=== PATIENT | female | born 1935 | race Caucasian/White ===

== ENCOUNTER 2019-06-25 03:44 | Emergency (ER) | payer MEDICARE, SELFPAY ==
[2019-06-25 03:45] VITALS: BP 192/93; PULSE 91; RESP 16; TEMP 37.3; O2SAT 94; BMI 23.2
--- NOTE | 2019-06-25 03:45 | ED_ITS ---
Entered by Violetta Schmid, acting as scribe for Laurie Lewis MD Documented by User: Laurie Lewis MD 06/25/19 04:11 HPI - Extremity Problem General: Chief complaint: Back Pain/Injury Stated complaint: PAIN BETWEEN SHOULDERS Time Seen by Provider: 06/25/19 03:46 Source: EMS Mode of arrival: EMS Limitations: no limitations History of Present Illness: HPI Narrative: 84 yo f came to the er by ems for pain between her shoulder blades and left knee pain. Onset was last night. Pt states that she was sleeping and woke up with a sharp pain between her shoulder blades. Pt also states that her left knee has been hurting but no injury that she knows of at this time. Complaint: extremity pain (between the shoulder blades) and other (left knee pain) Onset (ago): day(s) (today) Pain Consistency: constant Location: upper extremity, lower extremity and knee Associated symptoms: Deny chest pain, fever(s) or rash Review of Systems Const: Denies: fever or chills Eyes: Denies: change in vision ENMT: Denies: throat pain or mouth pain Card: Denies: chest pain Resp: Denies: shortness of breath GI: Denies: abdominal pain, vomiting or diarrhea : Denies: difficulty urinating Musc: Reports: back pain; Denies: joint pain Skin/Breast: Denies: rash Neuro: Denies: headache Psych: Denies: depression Endo: Denies: excessive urination Osorio/Lymph: Denies: easy bruising All/Imm: Denies: hives PFSH ED PFSH: Statuses (acute, chronic, etc) shown below reflect problem list status as previously entered and may not be historically accurate Social History Smoking and tobacco status: never smoked Physical Exam Const: COMMON NORMALS: no apparent distress and healthy appearing HENMT: COMMON NORMALS: normocephalic and external nose normal HEAD & SCALP: normocephalic NOSE: external nose normal and no nasal discharge (nasal dischage) Eye: COMMON NORMALS: PERRL PUPIL: Yes PERRL Neck/C-Spine: COMMON NORMALS: full ROM and no lymphadenopathy Chest: COMMONS NORMALS: inspection of chest normal Resp: COMMON NORMALS: normal respiratory effort and clear to auscultation bilaterally AUSCULTATION: clear to auscultation bilaterally Cardio: COMMON NORMALS: regular rate and regular rhythm RATE: regular rate RHYTHM: regular rhythm GI: COMMON NORMALS: soft to palpation PALPATION: Yes soft Back/Pelvis: OTHER: Tenderness over shoulder blades and pain is worse when she raises her arms. Extremity: COMMON NORMALS: normal to inspection, full ROM and normal capillary refill Psych: COMMON NORMALS: mental status grossly normal and cooperative Skin: COMMON NORMALS: no rashes or lesions noted GENERAL SKIN EXAM: no rashes or lesions noted Course Vital Signs: Vital signs: Vital Signs Temperature 99.1 F 06/25/19 03:45 Pulse Rate 91 06/25/19 03:45 Respiratory Rate 16 06/25/19 03:45 Blood Pressure 192/93 06/25/19 03:45 Pulse Oximetry 94 06/25/19 03:45 MDM - Extremity (Nontraumatic) Lab Data: Labs: Lab Results 06/25/19 06/25/19 06/25/19 Range/Units 03:53 03:53 03:53 WBC 9.2 (4.0-10.0) 10^3/ uL RBC 3.81 L (4.1-5.3) 10^6/u L Hgb 11.4 L (11.5-15.3) g/dL Hct 35.7 L (37.0-47.0) % MCV 93.7 (81-99) fL MCH 29.9 (28.0-34.0) pg MCHC 31.9 (30.0-36.0) g/dL RDW 12.4 (12.1-15.1) % Plt Count 166 (130-400) 10^3/c mm MPV 11.3 H (7.4-10.4) fL Neut % (Auto) 60.5 % Lymph % (Auto) 25.1 % [place] % (Auto) 10.9 % Eos % (Auto) 2.8 % Baso % (Auto) 0.4 % Neut # (Auto) 5.6 (1.8-7.7) 10^3/u L Lymph # (Auto) 2.3 (0.8-4.8) 10^3/u L [place] # (Auto) 1.0 H (0.2-0.9) 10^3/u L Eos # (Auto) 0.3 (0.0-0.8) 10^3/u L Baso # (Auto) 0.0 (0.0-0.1) 10^3/u L Nucleated RBC % (a uto) 0 % Nucleated RBCs # 0.0 /100WBC Sodium 140 (136-145) mmol/L Potassium 3.7 (3.5-5.1) mmol/L Chloride 102 (98-107) mmol/L Carbon Dioxide 25 (22-29) mmol/L Anion Gap 16.7 (5-19) BUN 21 (8-23) mg/dL Creatinine 1.2 H (0.5-0.9) mg/dL Glucose 111 H (74-106) mg/dL POC Glucose (70-110) mg/dL Calcium 9.8 (8.8-10.2) mg/Dl Total Bilirubin 0.4 (0.15-1.2) mg/dL AST 18 (0-32) U/L ALT 6 (0-33) U/L Alkaline Phosphata se 96 (35-105) IU/L Troponin T Baselin e 20 H (0-10) ng/mL Troponin T 120 Min [place] (0-10) ng/mL Delta Troponin T (0-10) ABS# Total Protein 6.5 L (6.6-8.7) g/dL Albumin 3.8 (3.5-5.2) g/dL Globulin 2.7 (1.3-4.6) g/dL 06/25/19 06/25/19 Range/Units 03:59 06:05 WBC (4.0-10.0) 10^3/ uL RBC (4.1-5.3) 10^6/u L Hgb (11.5-15.3) g/dL Hct (37.0-47.0) % MCV (81-99) fL MCH (28.0-34.0) pg MCHC (30.0-36.0) g/dL RDW (12.1-15.1) % Plt Count (130-400) 10^3/c mm MPV (7.4-10.4) fL Neut % (Auto) % Lymph % (Auto) % [place] % (Auto) % Eos % (Auto) % Baso % (Auto) % Neut # (Auto) (1.8-7.7) 10^3/u L Lymph # (Auto) (0.8-4.8) 10^3/u L [place] # (Auto) (0.2-0.9) 10^3/u L Eos # (Auto) (0.0-0.8) 10^3/u L Baso # (Auto) (0.0-0.1) 10^3/u L Nucleated RBC % (a uto) % Nucleated RBCs # /100WBC Sodium (136-145) mmol/L Potassium (3.5-5.1) mmol/L Chloride (98-107) mmol/L Carbon Dioxide (22-29) mmol/L Anion Gap (5-19) BUN (8-23) mg/dL Creatinine (0.5-0.9) mg/dL Glucose (74-106) mg/dL POC Glucose 104 (70-110) mg/dL Calcium (8.8-10.2) mg/Dl Total Bilirubin (0.15-1.2) mg/dL AST (0-32) U/L ALT (0-33) U/L Alkaline Phosphata se (35-105) IU/L Troponin T Baselin e (0-10) ng/mL Troponin T 120 Min [place] 15.94 H (0-10) ng/mL Delta Troponin T -4.06 L (0-10) ABS# Total Protein (6.6-8.7) g/dL Albumin (3.5-5.2) g/dL Globulin (1.3-4.6) g/dL Imaging Data^: CXR: Attestation: I personally reviewed and interpreted this imaging study as follows: My impression: no acute abnormality EKG Data^: EKG 1: Attestation: I personally reviewed and interpreted this EKG as follows: EKG interpretation date: 06/25/19 EKG interpretation time: 04:05 Interpretation: nsr hr [address] or t wave abnormalties qrs 87 qtc 399 Discharge Plan Discharge Patient Disposition: Home, Self-Care Clinical Impression: Thoracic back pain Qualifiers: Chronicity: acute Back pain laterality: bilateral Qualified Code(s): M54.6 - Pain in thoracic spine Condition: Stable Prescriptions: No Action donepezil 5 mg Tablet 5 mg PO DAILY RF: 0 lisinopril 20 mg Tablet 20 mg PO DAILY RF: 0 levothyroxine 88 mcg Tablet 88 mcg PO DAILY RF: 0 aspirin 325 mg Tablet,Delayed Release (Dr/Ec) 325 mg PO DAILY RF: 0 Discharge Orders: Discharge Order (Routine); Ordered 06/25/19 Ordered By: Adi Sarah Referrals: Jesús Garcia MD [Family Provider] - Discharge Diet: Advance as tolerated Discharge Activity: Resume usual activity Patient Instructions: Back Pain (ED) Coding Level of Care Code ED Urologist Md for Chg Fwd Exam Problem Focused Documented by User: Adi Sarah DO 06/25/19 07:01 HPI - Extremity Problem General: Chief complaint: Back Pain/Injury Stated complaint: PAIN BETWEEN SHOULDERS Time Seen by Provider: 06/25/19 03:46 PFSH ED PFSH: Statuses (acute, chronic, etc) shown below reflect problem list status a s previously entered and may not be historically accurate Social History Smoking and tobacco status: never smoked Course ED course: Assumed care at change of shift from Dr. Lewis. Chart reviewed waiting on second troponin. Second troponin has a negative delta. Patient was given her usual home medications. Is also given hydrocodone for back pain discharged to [facility]. Vital Signs: Vital signs: Vital Signs Temperature 99.1 F 06/25/19 03:45 Pulse Rate 91 06/25/19 03:45 Respiratory Rate 16 06/25/19 03:45 Blood Pressure 192/93 06/25/19 03:45 Pulse Oximetry 94 06/25/19 03:45 MDM - Extremity (Nontraumatic) Lab Data: Labs: Lab Results 06/25/19 06/25/19 06/25/19 Range/Units 03:53 03:53 03:53 WBC 9.2 (4.0-10.0) 10^3/ uL RBC 3.81 L (4.1-5.3) 10^6/u L Hgb 11.4 L (11.5-15.3) g/dL Hct 35.7 L (37.0-47.0) % MCV 93.7 (81-99) fL MCH 29.9 (28.0-34.0) pg MCHC 31.9 (30.0-36.0) g/dL RDW 12.4 (12.1-15.1) % Plt Count 166 (130-400) 10^3/c mm MPV 11.3 H (7.4-10.4) fL Neut % (Auto) 60.5 % Lymph % (Auto) 25.1 % [place] % (Auto) 10.9 % Eos % (Auto) 2.8 % Baso % (Auto) 0.4 % Neut # (Auto) 5.6 (1.8-7.7) 10^3/u L Lymph # (Auto) 2.3 (0.8-4.8) 10^3/u L [place] # (Auto) 1.0 H (0.2-0.9) 10^3/u L Eos # (Auto) 0.3 (0.0-0.8) 10^3/u L Baso # (Auto) 0.0 (0.0-0.1) 10^3/u L Nucleated RBC % (a uto) 0 % Nucleated RBCs # 0.0 /100WBC Sodium 140 (136-145) mmol/L Potassium 3.7 (3.5-5.1) mmol/L Chloride 102 (98-107) mmol/L Carbon Dioxide 25 (22-29) mmol/L Anion Gap 16.7 (5-19) BUN 21 (8-23) mg/dL Creatinine 1.2 H (0.5-0.9) mg/dL Glucose 111 H (74-106) mg/dL POC Glucose (70-110) mg/dL Calcium 9.8 (8.8-10.2) mg/Dl Total Bilirubin 0.4 (0.15-1.2) mg/dL AST 18 (0-32) U/L ALT 6 (0-33) U/L Alkaline Phosphata se 96 (35-105) IU/L Troponin T Baselin e 20 H (0-10) ng/mL Troponin T 120 [address] [place] (0-10) ng/mL Delta Troponin T (0-10) ABS# Total Protein 6.5 L (6.6-8.7) g/dL Albumin 3.8 (3.5-5.2) g/dL Globulin 2.7 (1.3-4.6) g/dL 06/25/19 06/25/19 Range/Units 03:59 06:05 WBC (4.0-10.0) 10^3/ uL RBC (4.1-5.3) 10^6/u L Hgb (11.5-15.3) g/dL Hct (37.0-47.0) % MCV (81-99) fL MCH (28.0-34.0) pg MCHC (30.0-36.0) g/dL RDW (12.1-15.1) % Plt Count (130-400) 10^3/c mm MPV (7.4-10.4) fL Neut % (Auto) % Lymph % (Auto) % [place] % (Auto) % Eos % (Auto) % Baso % (Auto) % Neut # (Auto) (1.8-7.7) 10^3/u L Lymph # (Auto) (0.8-4.8) 10^3/u L [place] # (Auto) (0.2-0.9) 10^3/u L Eos # (Auto) (0.0-0.8) 10^3/u L Baso # (Auto) (0.0-0.1) 10^3/u L Nucleated RBC % (a uto) % Nucleated RBCs # /100WBC Sodium (136-145) mmol/L Potassium (3.5-5.1) mmol/L Chloride (98-107) mmol/L Carbon Dioxide (22-29) mmol/L Anion Gap (5-19) BUN (8-23) mg/dL Creatinine (0.5-0.9) mg/dL Glucose (74-106) mg/dL POC Glucose 104 (70-110) mg/dL Calcium (8.8-10.2) mg/Dl Total Bilirubin (0.15-1.2) mg/dL AST (0-32) U/L ALT (0-33) U/L Alkaline Phosphata se (35-105) IU/L Troponin T Baselin e (0-10) ng/mL Troponin T [address] [place] 15.94 H (0-10) ng/mL Delta Troponin T -4.06 L (0-10) ABS# Total Protein (6.6-8.7) g/dL Albumin (3.5-5.2) g/dL Globulin (1.3-4.6) g/dL Imaging Data^: CXR: Radiologist's impression: No cardiomegaly small left costophrenic angle pleural effusion no evidence of congestive heart failure/pulmonary edema EKG Data^: EKG 2: EKG interpretation date: 06/25/19 EKG interpretation time: 05:54 Prior EKG tracings: available for review Interpretation: Normal sinus rhythm, rate 85 normal IN interval normal QT interval no acute ST changes noted nonpathologic Q waves in lead III Discharge Plan Discharge Patient Disposition: Home, Self-Care Clinical Impression: Thoracic back pain Qualifiers: Chronicity: acute Back pain laterality: bilateral Qualified Code(s): M54.6 - Pain in thoracic spine Condition: Stable Prescriptions: No Action donepezil 5 mg Tablet 5 mg PO DAILY RF: 0 lisinopril 20 mg Tablet 20 mg PO DAILY RF: 0 levothyroxine 88 mcg Tablet 88 mcg PO DAILY RF: 0 aspirin 325 mg Tablet,Delayed Release (Dr/Ec) 325 mg PO DAILY RF: 0 Discharge Orders: Discharge Order (Routine); Ordered 06/25/19 Ordered By: Adi Sarah Referrals: Jesús Garcia MD [Family Provider] - Discharge Diet: Advance as tolerated Discharge Activity: Resume usual activity Patient Instructions: Back Pain (ED) Coding Level of Care Code ED Urologist Md for Chg Fwd Exam Problem Focused The documentation recorded by the Binu lennon Stephanie Lyn, accurately reflects the service I personally performed and the decisions made by Joshua perales Korby, MD Jun 25, 2019 03:44
--- NOTE | 2019-06-25 03:47 | XR_ITS ---
WS: [id number] CHEST XRAY TECHNIQUE: Portable chest. CLINICAL INFORMATION: chest pain COMPARISON: None. FINDINGS: Heart: Normal cardiac silhouette. Lungs: Lungs are clear. No consolidation or pleural effusion. Bones: Normal visualized bony structures. Surgical clips right axilla. XR/XR chest 1V portable [id number] IMPRESSION: No acute chest findings
[2019-06-25 04:02] LABS: Basophils % 0.4 %; Eosinophils # 0.3 10^3/uL (0.0-0.8); Eosinophils % 2.8 %; Hematocrit 35.7 % (37.0-47.0); Hemoglobin 11.4 g/dL (11.5-15.3); Lymphocytes # 2.3 10^3/uL (0.8-4.8); Lymphocytes % 25.1 %; Mean Corpuscular HGB Conc 31.9 g/dL (30.0-36.0); Mean Corpuscular Hemoglobin 29.9 pg (28.0-34.0); Mean Corpuscular Volume 93.7 fL (81-99); Mean Platelet Volume 11.3 fL (7.4-10.4); Monocytes % 10.9 %; Neutrophils # 5.6 10^3/uL (1.8-7.7); Neutrophils % 60.5 %; Nucleated Red Blood Cells % 0 %; Platelet Count 166 10^3/cmm (130-400); Red Blood Count 3.81 10^6/uL (4.1-5.3); Red Cell Distribution Width 12.4 % (12.1-15.1); White Blood Count 9.2 10^3/uL (4.0-10.0)
[2019-06-25 04:07] LABS: Glucose Point of Care 104 mg/dL (70-110)
[2019-06-25 04:14] LABS: Alanine Aminotransferase 6 U/L (0-33); Albumin Level 3.8 g/dL (3.5-5.2); Alkaline Phosphatase 96 IU/L (35-105); Anion Gap 16.7 (5-19); Aspartate Amino Transferase 18 U/L (0-32); Blood Urea Nitrogen 21 mg/dL (8-23); Calcium 9.8 mg/Dl (8.8-10.2); Carbon Dioxide 25 mmol/L (22-29); Chloride 102 mmol/L (98-107); Globulin 2.7 g/dL (1.3-4.6); Glucose 111 mg/dL (74-106); Potassium 3.7 mmol/L (3.5-5.1); Sodium 140 mmol/L (136-145); Total Bilirubin 0.4 mg/dL (0.15-1.2); Total Protein 6.5 g/dL (6.6-8.7)
[2019-06-25 04:24] LABS: Troponin(5th) Baseline 20 ng/mL (0-10)
--- NOTE | 2019-06-25 05:47 | ECG_ITS ---
Measurements Intervals [place] Rate: 95 P: 73 WY: 155 QRS: 29 QRSD: 104 T: 37 QT: 357 QTc: 449 SINUS RHYTHM No previous ECG available for comparison Electronically Signed On 06-25-2019 8:10:31 GUIDE FOREIGN TOUR by Trip Bailey M.D. [email or web address]
[2019-06-25 06:23] LABS: Troponin 5 2HR 15.94 ng/mL (0-10)
[2019-06-25] MEDS: HYDROcodone-acetaminophen 5-325 mg Tablet 1 TAB PO (06:25)
[2019-06-25 06:27] LABS: Troponin 5 2HR Delta -4.06 ABS# (0-10)
--- NOTE | 2019-06-25 06:57 | PC.NURSE ---
Patient was advised to take her home medications for her hypertension when she gets home. Patient states she does not want to take them here because she has to have breakfast with her medications.
[2019-06-25 07:25] VITALS: BP 155/77; PULSE 91; RESP 16; O2SAT 93
--- NOTE | 2019-06-25 09:47 | ECG_ITS ---
Measurements Intervals [place] Rate: 90 P: 65 NC: 157 QRS: 31 QRSD: 87 T: 42 QT: 352 QTc: 431 SINUS RHYTHM No previous ECG available for comparison Electronically Signed On 06-25-2019 8:10:29 CNC SERVICE TECHNICIAN by Tirp Bailey M.D. [id number]
== END 2019-06-25 07:13 | disposition home or self-care (01) ==
PROVIDERS: Emergency Medicine; Emergency Provider Family Medicine; Family Provider Family Medicine
DX: M54.6 Pain in thoracic spine (principal); Z79.82 Long term (current) use of aspirin; R07.9 Chest pain, unspecified
CPT/HCPCS: 36415; 36416; 71045; 80053; 82962; 84484; 85025; 93005; 99282

== ENCOUNTER 2019-07-24 13:57 | Outpatient (CLI) | payer MEDICARE, SELFPAY ==
--- NOTE | 2019-07-24 14:07 | MM_ITS ---
WS: [id number] DIAGNOSTIC LEFT DIGITAL MAMMOGRAM WITH CAD HISTORY: HX OF BREAST CA COMPARISON: 08/05/2018 and 07/27/2017 and 07/25/2016 Technique: CC, MLO and ML views. Breast composition: There are scattered areas of fibroglandular density. No suspicious masses or hammad cifications. Similar parenchymal pattern as prior studies. MM/[place] [id number] IMPRESSION: BI-RADS: 2-Benign FOLLOW UP: 1 Year Follow-up
== END 2019-07-24 13:58 | disposition home or self-care (01) ==
PROVIDERS: Family Provider Family Medicine; PCP Family Medicine; Visit Provider Family Medicine
DX: Z85.3 Personal history of malignant neoplasm of breast (principal)
CPT/HCPCS: 77065

== ENCOUNTER → 2020-03-12 16:12 | Outpatient (BNVA) | payer MEDICARE, SELFPAY | PROVIDERS: Family Provider Family Medicine; PCP Family Medicine; Visit Provider Family Medicine | DX: Z20.828 Contact with and (suspected) exposure to other viral communicable diseases (principal) | CPT/HCPCS: 87635 ==

== ENCOUNTER 2020-03-14 11:15 | Emergency (ER) | payer MEDICARE, SELFPAY ==
[2020-03-14 11:49] VITALS: BP 141/76; PULSE 77; RESP 16; TEMP 37; O2SAT 94; BMI 22.4
--- NOTE | 2020-03-14 12:57 | CTR_ITS ---
PROCEDURE INFORMATION: Exam: CT Thoracic Spine Without Contrast Exam date and time: 03/14/2020 1:30 PM Age: 84 years old Clinical indication: Injury or trauma; Initial encounter; Blunt trauma (contusions or hematomas); Patient HX: Backwards fall from standing denies loc C/O neck and upper back/b shoulder pain; Additional info: Fall shoulder pain bilateral TECHNIQUE: Imaging protocol: Computed tomography images of the thoracic spine without contrast. Radiation optimization: All CT scans at this facility use at least one of these dose optimization techniques: automated exposure control; mA and/or kV adjustment per patient size (includes targeted exams where dose is matched to clinical indication); or iterative reconstruction. COMPARISON: No relevant prior studies available. RADIATION DOSE METRICS: Total DLP (mGy-cm): 755.97 FINDINGS: Vertebrae: The thoracic vertebral bodies maintain height and alignment. The facets align normally. There is multilevel bilateral facet arthropathy. No fracture identified. Discs/Spinal canal/Neural foramina: There is multilevel disc degeneration. Soft tissues: No paraspinal hematoma. CT/CT thoracic spin wo con* [id number] IMPRESSION: No acute osseous abnormality. Radiation Dose CTDIVOL = (mGy): DLP = 755.97 (mGy-cm)
--- NOTE | 2020-03-14 12:57 | CTR_ITS ---
PROCEDURE INFORMATION: Exam: CT Cervical Spine Without Contrast Exam date and time: 03/14/2020 1:30 PM Age: 84 years old Clinical indication: Injury or trauma; Initial encounter; Blunt trauma; Patient HX: Backwards fall from standing denies loc C/O neck and upper back/b shoulder pain; Additional info: Fall, neck and shoulder pain TECHNIQUE: Imaging protocol: Computed tomography images of the cervical spine without contrast. Radiation optimization: All CT scans at this facility use at least one of these dose optimization techniques: automated exposure control; mA and/or kV adjustment per patient size (includes targeted exams where dose is matched to clinical indication); or iterative reconstruction. COMPARISON: No relevant prior studies available. RADIATION DOSE METRICS: Total DLP (mGy-cm): 277.35 FINDINGS: Vertebrae: The cervical vertebral bodies maintain overall height. There is a grade 1 degenerative spondylolisthesis of C4 on C5. The facets align normally. There is multilevel bilateral facet arthropathy. The craniocervical junction is normal. The atlantodens interval is not widened. No acute fracture. Discs/Spinal canal/Neural foramina: There is multilevel disc and uncovertebral joint degeneration, primarily at C5-C6 and C6-C7. Multilevel bilateral degenerative foraminal stenosis of varying degrees. Soft tissues: No acute soft tissue abnormality. Lungs: The lung apices are normal. CT/CT cervical spin wo con* [id number] IMPRESSION: 1. No acute osseous abnormality. 2. Multilevel degenerative changes. Radiation Dose CTDIVOL = (mGy): DLP = 277.35 (mGy-cm)
--- NOTE | 2020-03-14 12:57 | CTR_ITS ---
PROCEDURE INFORMATION: Exam: CT Head Without Contrast Exam date and time: 03/14/2020 1:30 PM Age: 84 years old Clinical indication: Injury or trauma; Initial encounter; Blunt trauma (contusions or hematomas); Without loss of consciousness; Patient HX: Backwards fall from standing denies loc C/O neck and upper back/b shoulder pain TECHNIQUE: Imaging protocol: Computed tomography of the head without contrast. Radiation optimization: All CT scans at this facility use at least one of these dose optimization techniques: automated exposure control; mA and/or kV adjustment per patient size (includes targeted exams where dose is matched to clinical indication); or iterative reconstruction. COMPARISON: No relevant prior studies available. RADIATION DOSE METRICS: Total DLP (mGy-cm): 768.45 FINDINGS: Brain: No acute brain parenchymal abnormality. No intracranial hemorrhage. No extraaxial fluid collections. There is diffuse cerebral atrophy. There are white matter low attenuation changes in both cerebral hemispheres potentially related to chronic small vessel disease. Cerebral ventricles: No hydrocephalus when allowing for the atrophy. Bones/joints: No calvarial fracture. Paranasal sinuses: The visualized paranasal sinuses are aerated. Mastoid air cells: The visualized mastoid air cells are aerated. Soft tissues: No acute soft tissue abnormality. CT/CT head wo con* [id number] IMPRESSION: No intracranial injury or calvarial fracture. Radiation Dose CTDIVOL = (mGy): DLP = 768.45 (mGy-cm)
--- NOTE | 2020-03-14 13:01 | W.ED.FALL ---
HPI - Fall General: Chief Complaint: Fall Stated Complaint: fall Time Seen by Provider: 03/14/20 12:53 History of Present Illness: HPI Narrative: Patient fell earlier this morning because she felt weak and landed on her back striking her head and now complains about neck pain and shoulder pain has full range of motion of her extremities and able to ambulate she was tested for Covid 19 earlier in the week because she had a fever. Said she felt like she had a flu she said she no longer has no symptoms just weakness. complaint: fall Onset (ago): hour(s) Fall from: standing Fall witnessed: no Place fall occurred: home Loss of consciousness: None Symptoms prior to fall: other Context: recent illness (Weakness) Associated symptoms-after fall: Reports neck pain; Denies abdominal pain, chest pain or headache(s) Review of Systems Const: Reports: other; Denies: fever(s), chills or body aches Eyes: Denies: change in vision or blurry vision ENMT: Denies: throat pain or nasal congestion Card: Denies: chest pain or dyspnea on exertion Resp: Denies: dyspnea, productive cough or non-productive cough GI: Denies: abdominal pain, nausea or vomiting Musc: Reports: neck pain; Denies: extremity pain Skin/Breast: Denies: rash Neuro: Denies: headache(s) Psych: Denies: anxiety or depression Osorio/Lymph: Denies: easy bruising PFSH ED PFSH: Social History Smoking and tobacco status: never smoked Physical Exam Const: COMMON NORMALS: no acute distress, average body habitus and patient oriented x3 HENMT: COMMON NORMALS: normocephalic HEAD & SCALP: normal to inspection and normocephalic FACE & SINUS: normal facial exam Eye: COMMON NORMALS: conjunctivae normal GENERAL EYE: appearance normal, both eyes and all related structures CONJUNCTIVA: Yes conjunctivae normal Neck/C-Spine: COMMON NORMALS: no JVD CERVICAL SPINE: Yes pain with cervical ROM and Yes Cervical spine tenderness Chest: COMMONS NORMALS: normal inspection of the chest Resp: COMMON NORMALS: normal respiratory effort and clear to auscultation bilaterally AUSCULTATION: clear to auscultation bilaterally Cardio: COMMON NORMALS: no JVD, regular rate and regular rhythm RATE: regular rate RHYTHM: regular rhythm GI: COMMON NORMALS: Normal to inspection, nondistended, normoactive bowel sounds present Extremity: COMMON NORMALS: normal to inspection and full ROM Neuro: COMMON NORMALS: patient oriented x3 Course Vital Signs: Vital signs: Vital Signs Temperature 98.6 F 03/14/20 11:49 Pulse Rate 77 03/14/20 11:49 Respiratory Rate 16 03/14/20 11:49 Blood Pressure 141/76 03/14/20 11:49 Pulse Oximetry 94 03/14/20 11:49 MDM - Fall MDM Narrative: Medical decision making narrative: Patient positive code from my prior testing this week patient made aware that she is asymptomatic this time besides some weakness. Second EKG looks same as the first she is to follow-up with her family doctor as we said she already has an appointment. Lab Data: Labs: Lab Results 03/14/20 03/14/20 03/14/20 Range/Units 13:25 13:25 13:25 WBC 5.0 (4.0-10.0) 10^3/ uL RBC 4.85 (4.1-5.3) 10^6/u L Hgb 14.5 (11.5-15.3) g/dL Hct 45.8 (37.0-47.0) % MCV 94.4 (81-99) fL MCH 29.9 (28.0-34.0) pg MCHC 31.7 (30.0-36.0) g/dL RDW 13.2 (12.1-15.1) % Plt Count 122 L (130-400) 10^3/c mm MPV 11.7 H (7.4-10.4) fL Neut % (Auto) 58.1 % Lymph % (Auto) 29.3 % [place] % (Auto) 11.4 % Eos % (Auto) 0.6 % Baso % (Auto) 0.4 % Neut # (Auto) 2.90 (1.8-7.7) 10^3/u L Lymph # (Auto) 1.5 (0.8-4.8) 10^3/u L [place] # (Auto) 0.6 (0.2-0.9) 10^3/u L Eos # (Auto) 0.0 (0.0-0.8) 10^3/u L Baso # (Auto) 0.0 (0.0-0.1) 10^3/u L Nucleated RBC % (a uto) 0 % Nucleated RBCs # 0.0 /100WBC Sodium 136 (136-145) mmol/L Potassium 4.1 (3.5-5.1) mmol/L Chloride 100 (98-107) mmol/L Carbon Dioxide 24 (22-29) mmol/L Anion Gap 16.1 (5-19) BUN 42 H (8-23) mg/dL Creatinine 1.7 H (0.5-0.9) mg/dL GFR Calculation Not Reportable Glucose 84 (65-115) mg/dL Calculated Osmolal ity 292 (285-295) mOsm/k g Calcium 9.4 (8.5-10.5) mg/dL Total Bilirubin 0.2 (0.15-1.2) mg/dL AST 33 H (0-32) U/L ALT 19 (0-33) U/L Alkaline Phosphata se 76 (35-105) IU/L Troponin T Gen 5 n g/L 23 H (0-10) ng/L Troponin T 120 Min [place] Troponin T Total Protein 6.4 L (6.6-8.7) g/dL Albumin 3.9 (3.5-5.2) g/dL Globulin 2.5 (1.3-4.6) g/dL 03/14/20 03/14/20 Range/Units 15:10 15:10 WBC (4.0-10.0) 10^3/ uL RBC (4.1-5.3) 10^6/u L Hgb (11.5-15.3) g/dL Hct (37.0-47.0) % MCV (81-99) fL MCH (28.0-34.0) pg MCHC (30.0-36.0) g/dL RDW (12.1-15.1) % Plt Count (130-400) 10^3/c mm MPV (7.4-10.4) fL Neut % (Auto) % Lymph % (Auto) % [place] % (Auto) % Eos % (Auto) % Baso % (Auto) % Neut # (Auto) (1.8-7.7) 10^3/u L Lymph # (Auto) (0.8-4.8) 10^3/u L [place] # (Auto) (0.2-0.9) 10^3/u L Eos # (Auto) (0.0-0.8) 10^3/u L Baso # (Auto) (0.0-0.1) 10^3/u L Nucleated RBC % (a uto) % Nucleated RBCs # /100WBC Sodium (136-145) mmol/L Potassium (3.5-5.1) mmol/L Chloride (98-107) mmol/L Carbon Dioxide (22-29) mmol/L Anion Gap (5-19) BUN (8-23) mg/dL Creatinine (0.5-0.9) mg/dL GFR Calculation Glucose (65-115) mg/dL Calculated Osmolal ity (285-295) mOsm/k g Calcium (8.5-10.5) mg/dL Total Bilirubin (0.15-1.2) mg/dL AST (0-32) U/L ALT (0-33) U/L Alkaline Phosphata se (35-105) IU/L Troponin T Gen 5 n g/L 20 H (0-10) ng/L Troponin T 120 Min [place] Cancelled Delta Troponin T Cancelled Total Protein (6.6-8.7) g/dL Albumin (3.5-5.2) g/dL Globulin (1.3-4.6) g/dL EKG Data^: EKG 1: EKG interpretation date: 03/14/20 EKG interpretation time: 13:56 Interpretation: Ventricular rate 67 bpm ME interval 158 ms QRS durations 81 ms does appear to be a sinus rhythm there is some poor quality EKG possible 30 ms Q wave V3 V4 Discharge Plan Discharge Patient Disposition: Home Clinical Impression: COVID-19 Fall Qualifiers: Encounter type: initial encounter Qualified Code(s): W19.XXXA - Unspecified fall, initial encounter Condition: Stable Prescriptions: No Action donepezil 5 mg Tablet 5 mg PO DAILY RF: 0 lisinopril 20 mg Tablet 20 mg PO DAILY RF: 0 levothyroxine 88 mcg Tablet 88 mcg PO DAILY RF: 0 aspirin 325 mg Tablet,Delayed Release (Dr/Ec) 325 mg PO DAILY RF: 0 Discharge Orders: Discharge Order (Routine); Ordered 03/14/20 Ordered By: Jose Alberto Hernandez Referrals: Jesús Garcia MD [Primary Care Provider] - Discharge Diet: Usual diet Discharge Activity: Increase activity as tolerated Patient Instructions: Fall Prevention (ED), Viral Syndrome in Children (ED) Activity Restrictions/Additional Instructions: Follow-up with medical provider as directed. Take ibuprofen and Tylenol as prescribed. Return to the ER or your medical provider if condition worsens. Please read and understand discharge instructions. If any questions ask please. Follow-up with your family provider if any signs symptoms COVID happened if this of breath occurs high fevers severe body aches. Coding Level of Care Code ED Care Navigator for Bhargav[facility] 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
--- NOTE | 2020-03-14 13:03 | ECG_ITS ---
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 Measurements Intervals [place] Rate: 67 P: 38 [place]: 158 QRS: -16 QRSD: 81 T: 21 QT: 414 QTc: 440 Interpretive Statements SINUS RHYTHM POSSIBLE ANTERIOR MYOCARDIAL INFARCTION [30 ms Q WAVE IN V3/V4, OR R < 0.2 mV IN V4], OF INDETERMINATE AGE WARNING: DATA QUALITY MAY AFFECT INTERPRETATION Compared to ECG 06/25/2019 05:52:51 Myocardial infarct finding now present Electronically Signed On 03-14-2020 19:14:50 CDT by Dagmar Ladd M.D. [id number] f
--- NOTE | 2020-03-14 13:03 | XRR_ITS ---
PROCEDURE INFORMATION: Exam: XR Chest, 1 View Exam date and time: 03/14/2020 1:04 PM Age: 84 years old Clinical indication: Injury or trauma; Initial encounter; Blunt trauma (contusions or hematomas); Prior surgery; Surgery date: 6+ months; Surgery type: Breast; Patient HX: Backwards fall from standing denies loc C/O neck and upper back/b shoulder pain TECHNIQUE: Imaging protocol: XR of the chest Views: 1 view. COMPARISON: CR XR chest 1V portable [id number] 06/25/2019 3:58 AM FINDINGS: Lungs: Unremarkable. No consolidation. Pleural space: Unremarkable. No pleural effusion. No pneumothorax. Heart/Mediastinum: Unremarkable. No cardiomegaly. Bones/joints: Unremarkable. XR/XR chest 1V portable [id number] IMPRESSION: No acute findings.
[2020-03-14 13:31] LABS: Basophils % 0.4 %; Eosinophils % 0.6 %; Hematocrit 45.8 % (37.0-47.0); Hemoglobin 14.5 g/dL (11.5-15.3); Lymphocytes # 1.5 10^3/uL (0.8-4.8); Lymphocytes % 29.3 %; Mean Corpuscular HGB Conc 31.7 g/dL (30.0-36.0); Mean Corpuscular Hemoglobin 29.9 pg (28.0-34.0); Mean Corpuscular Volume 94.4 fL (81-99); Mean Platelet Volume 11.7 fL (7.4-10.4); Monocytes # 0.6 10^3/uL (0.2-0.9); Monocytes % 11.4 %; Neutrophils % 58.1 %; Nucleated Red Blood Cells % 0 %; Platelet Count 122 10^3/cmm (130-400); Red Blood Count 4.85 10^6/uL (4.1-5.3); Red Cell Distribution Width 13.2 % (12.1-15.1)
[2020-03-14 13:52] LABS: Alanine Aminotransferase 19 U/L (0-33); Albumin Level 3.9 g/dL (3.5-5.2); Alkaline Phosphatase 76 IU/L (35-105); Anion Gap 16.1 (5-19); Aspartate Amino Transferase 33 U/L (0-32); Blood Urea Nitrogen 42 mg/dL (8-23); Calcium 9.4 mg/dL (8.5-10.5); Carbon Dioxide 24 mmol/L (22-29); Chloride 100 mmol/L (98-107); Globulin 2.5 g/dL (1.3-4.6); Glucose 84 mg/dL (65-115); Osmolality Calculated 292 mOsm/kg (285-295); Potassium 4.1 mmol/L (3.5-5.1); Sodium 136 mmol/L (136-145); Total Bilirubin 0.2 mg/dL (0.15-1.2); Total Protein 6.4 g/dL (6.6-8.7)
--- NOTE | 2020-03-14 14:31 | PC.NURSE ---
Daughter called for an update and also reported patient is being treated for dementia
[2020-03-14 14:39] LABS: Troponin T (5th) Once 23 ng/L (0-10)
[2020-03-14 16:01] LABS: Troponin T (5th) Once 20 ng/L (0-10)
--- NOTE | 2020-03-14 16:13 | PC.NURSE ---
Pt was swabbed for COVID on 03/12, results are positive, pt notified.
[2020-03-14 16:20] VITALS: RESP 18
--- NOTE | 2020-03-14 16:54 | ECG_ITS ---
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 [id number]
== END 2020-03-14 16:20 | disposition home or self-care (01) ==
PROVIDERS: Emergency Provider Nurse Practitioner Family; PCP Family Medicine
DX: U07.1 COVID-19 (principal); Z79.82 Long term (current) use of aspirin
CPT/HCPCS: 12345; 36415; 70450; 71045; 72125; 72128; 80053; 84484; 85025; 93005; 99281; 99283

== ENCOUNTER 2020-10-23 09:22 | Inpatient (IN) | payer MEDICARE, SELFPAY ==
[2020-10-23] VITALS (45 sets, daily range): BP systolic 115–171; BP diastolic 65–82; PULSE 64–112; RESP 14–28; TEMP 36.7–37.2; O2SAT 94–100; BMI 24.5
--- NOTE | 2020-10-23 09:34 | CTR_ITS ---
PROCEDURE INFORMATION: Exam: CT Head Without Contrast Exam date and time: 10/23/2020 10:38 AM Age: 85 years old Clinical indication: Injury or trauma; Fall; Blunt trauma (contusions or hematomas); Additional info: Trauma/fall TECHNIQUE: Imaging protocol: Computed tomography of the head without contrast. Radiation optimization: All CT scans at this facility use at least one of these dose optimization techniques: automated exposure control; mA and/or kV adjustment per patient size (includes targeted exams where dose is matched to clinical indication); or iterative reconstruction. COMPARISON: CT head wo con* [id number] 03/14/2020 1:54 PM RADIATION DOSE METRICS: Total DLP (mGy-cm): 811.52 FINDINGS: Brain: Symmetric prominence of the cortical sulci. Prominent small-vessel ischemic change. No acute post-traumatic brain injury. Cerebral ventricles: Normal configuration of the ventricles. Bones/joints: No acute calvarial injury. Paranasal sinuses: No sinus fluid. Mastoid air cells: No mastoid effusion. Vasculature: Vascular, basal ganglia, and dural calcifications. Soft tissues: Small left frontal scalp hematoma and left periorbital soft tissue swelling. CT/CT head wo con* [id number] IMPRESSION: 1. No acute post-traumatic brain injury. 2. Small left frontal scalp hematoma and left periorbital soft tissue swelling. Radiation Dose CTDIVOL = (mGy): DLP = 811.52 (mGy-cm)
--- NOTE | 2020-10-23 09:34 | CTR_ITS ---
PROCEDURE INFORMATION: Exam: CT Abdomen And Pelvis With Contrast Exam date and time: 10/23/2020 10:34 AM Age: 85 years old Clinical indication: Other: Gi bleed; Additional info: Abdominal pain, gi bleed TECHNIQUE: Imaging protocol: Computed tomography of the abdomen and pelvis with contrast. Radiation optimization: All CT scans at this facility use at least one of these dose optimization techniques: automated exposure control; mA and/or kV adjustment per patient size (includes targeted exams where dose is matched to clinical indication); or iterative reconstruction. Contrast material: VISI 320; Contrast volume: 95 ml; Contrast route: INTRAVENOUS (IV); COMPARISON: No relevant prior studies available. RADIATION DOSE METRICS: Total DLP (mGy-cm): 900.87 FINDINGS: Lungs: No acute basilar lung consolidation. Liver: The liver is homogeneous and is not enlarged. Gallbladder and bile ducts: No calcified gallstones, gallbladder wall thickening, or pericholecystic inflammation. No biliary ductal dilation. Pancreas: No pancreatic mass. No peripancreatic inflammation. No pancreatic ductal dilation. Spleen: Calcified granuloma in a nonenlarged spleen. Adrenal glands: No adrenal mass. Kidneys and ureters: No hydronephrosis. No nephrolithiasis. Bilateral simple appearing renal cysts measuring up to 2.4 cm in size. Stomach and bowel: There is thickening of the gastric antral wall which can be due to gastritis. There is diverticulosis, most prominent in the sigmoid colon, without evidence of diverticulitis. No bowel obstruction. No intraluminal extravasation of IV contrast identified. Appendix: No evidence of appendicitis. Intraperitoneal space: No ascites or pneumoperitoneum. Vasculature: No abdominal aortic aneurysm. The mesenteric arteries are patent. The mesenteric, portal, and hepatic veins are patent. 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 Lymph nodes: No enlarged lymph nodes. Urinary bladder: The urinary bladder is decompressed with a Garvey catheter. Reproductive: A pessary is in place. Bones/joints: Multilevel disc degeneration and facet arthropathy in the lumbar spine in association with a curvature convex to the left. Soft tissues: Tiny umbilical hernia. CT/CT abdomen pelvis w con* [id number] IMPRESSION: 1. Diverticulosis without diverticulitis. The diverticular disease could be a source of lower gastrointestinal hemorrhage. 2. Thickening of the gastric antral wall which may be due to antral gastritis. COMMENTS: Consistent with the [employer]'s Incidental Findings Committee white paper (J Am Anna Radiol 2018): Any incidental renal lesion less than 1 cm or classified as too small to characterize, or any incidental cystic renal lesion characterized as simple-appearing, is likely benign. No follow-up imaging is recommended for these lesions per consensus recommendations based on imaging criteria. Radiation Dose CTDIVOL = (mGy): DLP = 900.87 (mGy-cm)
--- NOTE | 2020-10-23 09:34 | CTR_ITS ---
PROCEDURE INFORMATION: Exam: CT Cervical Spine Without Contrast Exam date and time: 10/23/2020 10:38 AM Age: 85 years old Clinical indication: Injury or trauma; Fall; Blunt trauma TECHNIQUE: Imaging protocol: Computed tomography images of the cervical spine without contrast. Radiation optimization: All CT scans at this facility use at least one of these dose optimization techniques: automated exposure control; mA and/or kV adjustment per patient size (includes targeted exams where dose is matched to clinical indication); or iterative reconstruction. COMPARISON: CT cervical spin wo con* [id number] 03/14/2020 1:57 PM RADIATION DOSE METRICS: Total DLP (mGy-cm): 333.14 FINDINGS: Bones/joints: No acute bony injury in the visualized cervical spine. Schmorl's nodes. Stable 3 mm anterolisthesis of C4 on C5. Discs/Spinal canal/Neural foramina: Multilevel degenerative change and ununited anterior osteophyte. Dental: Beam hardening artifact is identified in association with dental amalgam. Nasopharynx: 7 mm polypoid lesion in the left posterior nasal cavity. Oropharynx: Tonsillar calcifications. Lungs: Unremarkable apices as visualized. Soft tissues: Unremarkable. CT/CT cervical spin wo con* [id number] IMPRESSION: 1. No acute bony injury in the visualized cervical spine. 2. Stable 3 mm anterolisthesis of C4 on C5. Radiation Dose CTDIVOL = (mGy): DLP = 333.14 (mGy-cm)
--- NOTE | 2020-10-23 09:34 | XRR_ITS ---
PROCEDURE INFORMATION: Exam: XR Chest Exam date and time: 10/23/2020 10:38 AM Age: 85 years old Clinical indication: Injury or trauma; Fall; Blunt trauma (contusions or hematomas); Additional info: Syncope TECHNIQUE: Imaging protocol: XR of the chest. Views: 1 view. COMPARISON: CR XR chest 1V portable [id number] 03/14/2020 1:39 PM FINDINGS: Lungs: No pulmonary vascular congestion or pulmonary edema. No lung contusion. Pleural spaces: No pleural effusion. No pneumothorax. Heart/Mediastinum: The cardiac silhouette is not enlarged. The mediastinal contours are normal. Bones/joints: No acute osseous abnormality. Soft tissues: There is a left epicardial fat pad. Surgical clips in the right axilla/lateral chest wall. XR/XR chest 1V portable [id number] IMPRESSION: No acute abnormality.
--- NOTE | 2020-10-23 09:34 | CTR_ITS ---
PROCEDURE INFORMATION: Exam: CT Maxillofacial Without Contrast Exam date and time: 10/23/2020 10:38 AM Age: 85 years old Clinical indication: Injury or trauma; Fall; Blunt trauma (contusions or hematomas); Orbit/periorbital; Left; Additional info: Fall, L orbital hematoma TECHNIQUE: Imaging protocol: Computed tomography images of the face without contrast. Radiation optimization: All CT scans at this facility use at least one of these dose optimization techniques: automated exposure control; mA and/or kV adjustment per patient size (includes targeted exams where dose is matched to clinical indication); or iterative reconstruction. COMPARISON: No relevant prior studies available. RADIATION DOSE METRICS: Total DLP (mGy-cm): 1670.67 FINDINGS: Orbital cavity: No post-traumatic injury involving the globes, optic nerves, and extraocular muscles. Bones/joints: No acute facial fracture. Paranasal sinuses: No sinus fluid. Soft tissues: Mild left periorbital soft tissue swelling and small left frontal scalp hematoma. Dental: Beam hardening artifact is identified in association with dental amalgam. CT/CT facial bones wo con* [id number] IMPRESSION: No acute facial fracture. Radiation Dose CTDIVOL = (mGy): DLP = 1670.67 (mGy-cm)
--- NOTE | 2020-10-23 09:37 | W.ED.GIBLEED ---
HPI - GI Bleed General: Chief complaint: GI Bleed Stated complaint: GI BLEED; NECK/HEAD/WRIST PAIN S/P FALL Time Seen by Provider: 10/23/20 09:24 Source: patient and EMS Mode of arrival: EMS Limitations: no limitations History of Present Illness: HPI Narrative: Patient is an 85-year-old female who presents to ED today via EMS for complaints of a syncopal episode and a GI bleed. Patient tells me this morning she awoke from sleep with complaints of abdominal pain. She states she got out of bed and headed to the bathroom and states the next thing I knew I had fallen . Patient states she was not able to get up on her own thus contacted an ambulance. EMS states upon arrival they noted 750-1000ml fresh presumed rectal blood on floor and between patient's legs. Patient states she struck the left side of her face on the fall. She denies LOC but does not remember specific details regarding the fall. She does complain of neck pain-she arrived in a c-collar. Patient has no history of GI bleeds. She is not on anticoagulation. She is not actively bleeding upon arrival. She is hemodynamically stable upon arrival. 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) Associated symptoms: Reports abdominal pain and headache(s) (reports pain above her L eye); Denies chills, fever(s), malaise, nausea, rash, syncope or vomiting Treatments Prior to Arrival: none Review of Systems Const: Denies: fever(s), chills, body aches, fatigue or malaise Eyes: Denies: change in vision, blurry vision, photophobia, floaters or seeing flashes Card: Reports: pre-syncope; Denies: chest pain, palpitations, irregular heart rhythm, edema, lightheadedness, syncope, dyspnea on exertion or orthopnea Resp: Denies: dyspnea GI: Reports: abdominal pain and other (rectal bleeding); Denies: nausea, vomiting, hematemesis, diarrhea or constipation : Denies: flank pain or dysuria Musc: Denies: neck pain or back pain Skin/Breast: Denies: rash Neuro: Reports: headache(s) (reports pain above her L eye); Denies: numbness in extremities, weakness in extremities, sensory changes, vertigo or confusion PFSH ED PFS: Social History Smoking and tobacco status: never smoked Physical Exam Const: COMMON NORMALS: no acute distress, average body habitus and alert GENERAL APPEARANCE: cooperative ORIENTATION/CONSCIOUSNESS: Yes awake, Yes oriented to person and Yes oriented to place HENMT: COMMON NORMALS: normocephalic and Normal external nose present HEAD & SCALP: normocephalic and other (has small hematoma to L superior orbit) NOSE: Normal external nose present Eye: GENERAL EYE: appearance normal, both eyes and all related structures Resp: COMMON NORMALS: normal respiratory effort and clear to auscultation bilaterally AUSCULTATION: clear to auscultation bilaterally Cardio: COMMON NORMALS: regular rate and regular rhythm RATE: regular rate RHYTHM: regular rhythm GI: COMMON NORMALS: Normal to inspection, nondistended, normoactive bowel sounds present, Soft to palpation, non-tender, No hepatosplenomegaly present and no masses AUSCULTATION: Yes normoactive bowel sounds PALPATION: Yes Soft to palpation and Yes No hepatosplenomegaly present OTHER: pt has a large amount of fresh blood around perineal region and down legs; there is no active bleeding currently; unsure of whether this is vaginal or rectal; will have RN clean patient and reassess; she is hemodynamically stable patient cleaned and re-assessed with MADINA-gross blood noted : COMMON NORMALS: Yes no CVA tenderness BLADDER/KIDNEY EXAM: Yes no CVA tenderness Back/Pelvis: COMMON NORMALS: no CVA tenderness, thoracic and lumbar spine normal to inspection, no thoracic nor lumbar tenderness and thoraco-lumbar ROM normal Extremity: COMMON NORMALS: full ROM NARRATIVE EXTREMITY EXAM: full ROM of all joints; she has ecchymosis to her L radial wrist but does not complain of pain here GENERAL: Yes normal exam except as noted Neuro: RELL COMA SCALE: document GCS findings Pavo coma scale eye opening: Spontaneous Pavo coma scale verbal response: Orientated Rell coma scale motor response: Obey commands Pavo coma scale total score: 15 COMMON NORMALS: CN's II-XII intact bilaterally, moves all extremities, no focal motor deficits and no sensory deficits noted SENSORIUM/ORIENTATION: Yes alert, Yes oriented to person and Yes oriented to place SPEECH: speech normal GAIT: Yes Unable to assess gait OTHER: she can tell me name, , location; she does not know the current year Skin: NARRATIVE SKIN EXAM: normal unless otherwise documented Course Vital Signs: Vital signs: Vital Signs Temperature 98.1 F 10/23/20 09:23 Pulse Rate 69 10/23/20 11:47 Respiratory Rate 18 10/23/20 11:47 Blood Pressure 171/75 10/23/20 11:47 Pulse Oximetry 98 10/23/20 11:47 MDM - GI Bleed MDM Narrative: Medical decision making narrative: Patient arrives with one very large episode of hematochezia. She is hemodynamically stable upon arrival. She has gross blood in her rectum on MADINA. H&H currently are 9.5/30.5. Dr. Avendano also evaluated patient upon arrival and has staffed patient throughout her stay. CT head, cervical spine, facial are negative for acute pathology. CT abdomen/pelvis shows diverticulosis without evidence of diverticulitis. She does have some findings of gastritis as well. IV Protonix was ordered. She has been given a liter of fluids. Vitals continue to stay stable. Dr. Avendano has spoken to Dr. Solis who accepts admit-recommends ICU. He will speak to hospitalist as well for admission. Lab Data: Labs: Lab Results 10/23/20 10/23/20 10/23/20 Range/Units 09:20 09:20 09:20 WBC 12.2 H (4.0-10.0) 10^3/ uL RBC 3.13 L (4.1-5.3) 10^6/u L Hgb 9.5 L (11.5-15.3) g/dL Hct 30.5 L (37.0-47.0) % MCV 97.4 (81-99) fL MCH 30.4 (28.0-34.0) pg MCHC 31.1 (30.0-36.0) g/dL RDW 13.5 (12.1-15.1) % Plt Count 188 (130-400) 10^3/c mm MPV 11.4 H (7.4-10.4) fL Neut % (Auto) 54.5 % Lymph % (Auto) 35.9 % [place] % (Auto) 6.7 % Eos % (Auto) 1.8 % Baso % (Auto) 0.7 % Neut # (Auto) 6.66 (1.8-7.7) 10^3/u L Lymph # (Auto) 4.4 (0.8-4.8) 10^3/u L [place] # (Auto) 0.8 (0.2-0.9) 10^3/u L Eos # (Auto) 0.2 (0.0-0.8) 10^3/u L Baso # (Auto) 0.1 (0.0-0.1) 10^3/u L Nucleated RBC % (a uto) 0 % Nucleated RBCs # 0.0 /100WBC PT 15.10 H (12.1-14.9) SECO NDS INR 1.15 (0.8-1.2) APTT 25.9 (23.9-36.7) SECO NDS Sodium 141 (136-145) mmol/L Potassium 4.6 (3.5-5.1) mmol/L Chloride 108 H (98-107) mmol/L Carbon Dioxide 29 (22-29) mmol/L Anion Gap 8.6 (5-19) BUN 40 H (8-23) mg/dL Creatinine 1.1 H (0.5-0.9) mg/dL GFR Calculation Not Reportable Glucose 146 H (65-115) mg/dL Calculated Osmolal ity 304 H (285-295) mOsm/k g Lactic Acid (0.5-2.2) mmol/L Calcium 7.8 L (8.5-10.5) mg/dL Total Bilirubin 0.3 (0.15-1.2) mg/dL AST 12 (0-32) U/L ALT 7 (0-33) U/L Alkaline Phosphata se 63 (35-105) IU/L Troponin T Baselin e (0-10) ng/L Troponin T 120 Min saxman (0-10) ng/L Delta Troponin T (0-10) ABS# Total Protein 4.9 L (6.6-8.7) g/dL Albumin 3.2 L (3.5-5.2) g/dL Globulin 1.7 (1.3-4.6) g/dL Urine Color (Yellow) Urine Appearance (CLEAR) Urine pH (5-7) Ur Specific Gravit y (1.005-1.030) Urine Protein (Negative) Urine Glucose (UA) (Normal) Urine Ketones (Negative) Urine Blood (Negative) Urine Nitrate (Negative) Urine Bilirubin (Negative) Urine Urobilinogen (Negative) mg/dL Ur Leukocyte Loretta ase (Negative) Urine RBC (0-2) /hpf Urine WBC (0-5) /hpf Ur Squamous Epith Cells (0-5) /hpf Amorphous Sediment Urine Bacteria (NONE) /hpf Urine Mucus /hpf Blood Type Rho(D) Type Antibody Screen Crossmatch 10/23/20 10/23/20 10/23/20 Range/Units 09:20 09:43 09:43 WBC (4.0-10.0) 10^3/ uL RBC (4.1-5.3) 10^6/u L Hgb (11.5-15.3) g/dL Hct (37.0-47.0) % MCV (81-99) fL MCH (28.0-34.0) pg MCHC (30.0-36.0) g/dL RDW (12.1-15.1) % Plt Count (130-400) 10^3/c mm MPV (7.4-10.4) fL Neut % (Auto) % Lymph % (Auto) % [place] % (Auto) % Eos % (Auto) % Baso % (Auto) % Neut # (Auto) (1.8-7.7) 10^3/u L Lymph # (Auto) (0.8-4.8) 10^3/u L [place] # (Auto) (0.2-0.9) 10^3/u L Eos # (Auto) (0.0-0.8) 10^3/u L Baso # (Auto) (0.0-0.1) 10^3/u L Nucleated RBC % (a uto) % Nucleated RBCs # /100WBC PT (12.1-14.9) SECO NDS INR (0.8-1.2) APTT (23.9-36.7) SECO NDS Sodium (136-145) mmol/L Potassium (3.5-5.1) mmol/L Chloride (98-107) mmol/L Carbon Dioxide (22-29) mmol/L Anion Gap (5-19) BUN (8-23) mg/dL Creatinine (0.5-0.9) mg/dL GFR Calculation Glucose (65-115) mg/dL Calculated Osmolal ity (285-295) mOsm/k g Lactic Acid 1.5 (0.5-2.2) mmol/L Calcium (8.5-10.5) mg/dL Total Bilirubin (0.15-1.2) mg/dL AST (0-32) U/L ALT (0-33) U/L Alkaline Phosphata se (35-105) IU/L Troponin T Baselin e 12 H (0-10) ng/L Troponin T 120 Min saxman (0-10) ng/L Delta Troponin T (0-10) ABS# Total Protein (6.6-8.7) g/dL Albumin (3.5-5.2) g/dL Globulin (1.3-4.6) g/dL Urine Color (Yellow) Urine Appearance (CLEAR) Urine pH (5-7) Ur Specific Gravit y (1.005-1.030) Urine Protein (Negative) Urine Glucose (UA) (Normal) Urine Ketones (Negative) Urine Blood (Negative) Urine Nitrate (Negative) Urine Bilirubin (Negative) Urine Urobilinogen (Negative) mg/dL Ur Leukocyte Loretta ase (Negative) Urine RBC (0-2) /hpf Urine WBC (0-5) /hpf Ur Squamous Epith Cells (0-5) /hpf Amorphous Sediment Urine Bacteria (NONE) /hpf Urine Mucus /hpf Blood Type O Negative Rho(D) Type Negative / 0 Antibody Screen Negative Crossmatch See Detail 10/23/20 10/23/20 Range/Units 09:50 11:26 WBC (4.0-10.0) 10^3/ uL RBC (4.1-5.3) 10^6/u L Hgb (11.5-15.3) g/dL Hct (37.0-47.0) % MCV (81-99) fL MCH (28.0-34.0) pg MCHC (30.0-36.0) g/dL RDW (12.1-15.1) % Plt Count (130-400) 10^3/c mm MPV (7.4-10.4) fL Neut % (Auto) % Lymph % (Auto) % [place] % (Auto) % Eos % (Auto) % Baso % (Auto) % Neut # (Auto) (1.8-7.7) 10^3/u L Lymph # (Auto) (0.8-4.8) 10^3/u L [place] # (Auto) (0.2-0.9) 10^3/u L Eos # (Auto) (0.0-0.8) 10^3/u L Baso # (Auto) (0.0-0.1) 10^3/u L Nucleated RBC % (a uto) % Nucleated RBCs # /100WBC PT (12.1-14.9) SECO NDS INR (0.8-1.2) APTT (23.9-36.7) SECO NDS Sodium (136-145) mmol/L Potassium (3.5-5.1) mmol/L Chloride (98-107) mmol/L Carbon Dioxide (22-29) mmol/L Anion Gap (5-19) BUN (8-23) mg/dL Creatinine (0.5-0.9) mg/dL GFR Calculation Glucose (65-115) mg/dL Calculated Osmolal ity (285-295) mOsm/k g Lactic Acid (0.5-2.2) mmol/L Calcium (8.5-10.5) mg/dL Total Bilirubin (0.15-1.2) mg/dL AST (0-32) U/L ALT (0-33) U/L Alkaline Phosphata se (35-105) IU/L Troponin T Baselin e (0-10) ng/L Troponin T 120 Min saxman 10.68 H (0-10) ng/L Delta Troponin T -1.32 L (0-10) ABS# Total Protein (6.6-8.7) g/dL Albumin (3.5-5.2) g/dL Globulin (1.3-4.6) g/dL Urine Color Straw (Yellow) Urine Appearance Clear (CLEAR) Urine pH 5 (5-7) Ur Specific Gravit y 1.015 (1.005-1.030) Urine Protein Neg (Negative) Urine Glucose (UA) Norm (Normal) Urine Ketones Negative (Negative) Urine Blood Trace H (Negative) Urine Nitrate Negative (Negative) Urine Bilirubin 1+ H (Negative) Urine Urobilinogen Norm (Negative) mg/dL Ur Leukocyte Loretta ase 1+ H (Negative) Urine RBC Rare (0-2) /hpf Urine WBC 15-25 H (0-5) /hpf Ur Squamous Epith Cells 0-4 H (0-5) /hpf Amorphous Sediment Not Reportable Urine Bacteria 1+ H (NONE) /hpf Urine Mucus Trace /hpf Blood Type Rho(D) Type Antibody Screen Crossmatch Imaging Data^: CT Head: Radiologist's impression: [facility] [id number] Scan ReportSigned Patient: Rai Ortiz #: [id number]: 1935cct#:[id number]/Sex: 85 / FADM Date: 10/23/20Loc: ERRoom/Bed:Attending Dr: Ordering Provider/Ordering MD: Linette Eden Date of Service: 10/23/20 Procedure(s): CT head wo con* [id number] Accession Number(s): [id number] Report Number: [id number] PROCEDURE INFORMATION: Exam: CT Head Without Contrast Exam date and time: 10/23/2020 10:38 AM Age: 85 years old Clinical indication: Injury or trauma; Fall; Blunt trauma (contusions or hematomas); Additional info: Trauma/fall TECHNIQUE: Imaging protocol: Computed tomography of the head without contrast. Radiation optimization: All CT scans at this facility use at least one of these dose optimization techniques: automated exposure control; mA and/or kV adjustment per patient size (includes targeted exams where dose is matched to clinical indication); or iterative reconstruction. COMPARISON: CT head wo con* [id number] 03/14/2020 1:54 PM RADIATION DOSE METRICS: Total DLP (mGy-cm): 811.52 FINDINGS: Brain: Symmetric prominence of the cortical sulci. Prominent small-vessel ischemic change. No acute post-traumatic brain injury. Cerebral ventricles: Normal configuration of the ventricles. Bones/joints: No acute calvarial injury. Paranasal sinuses: No sinus fluid. Mastoid air cells: No mastoid effusion. Vasculature: Vascular, basal ganglia, and dural calcifications. Soft tissues: Small left frontal scalp hematoma and left periorbital soft tissue swelling. CT/CT head wo con* [id number] IMPRESSION: 1. No acute post-traumatic brain injury. 2. Small left frontal scalp hematoma and left periorbital soft tissue swelling. Radiation Dose CTDIVOL = (mGy): DLP = 811.52 (mGy-cm) Dictated By:Carlos A Garcia MDSigned By:Carlos A Garcia MDSigned Date/Time:10/23/20 1149DD/ 1146 CT Abd/Pel: Radiologist's impression: [address] [address] Scan ReportSigned Patient: Rai Ortiz #: [id number]: 1935cct#:[id number]/Sex: 85 / FADM Date: 10/23/20Loc: ERRoom/Bed:Attending Dr: Ordering Provider/Ordering MD: Linette Eden Date of Service: 10/23/20 Procedure(s): CT abdomen pelvis w con* [id number] Accession Number(s): [id number] Report Number: [id number] PROCEDURE INFORMATION: Exam: CT Abdomen And Pelvis With Contrast Exam date and time: 10/23/2020 10:34 AM Age: 85 years old Clinical indication: Other: Gi bleed; Additional info: Abdominal pain, gi bleed TECHNIQUE: Imaging protocol: Computed tomography of the abdomen and pelvis with contrast. Radiation optimization: All CT scans at this facility use at least one of these dose optimization techniques: automated exposure control; mA and/or kV adjustment per patient size (includes targeted exams where dose is matched to clinical indication); or iterative reconstruction. Contrast material: VISI 320; Contrast volume: 95 ml; Contrast route: INTRAVENOUS (IV); COMPARISON: No relevant prior studies available. RADIATION DOSE METRICS: Total DLP (mGy-cm): 900.87 FINDINGS: Lungs: No acute basilar lung consolidation. Liver: The liver is homogeneous and is not enlarged. Gallbladder and bile ducts: No calcified gallstones, gallbladder wall thickening, or pericholecystic inflammation. No biliary ductal dilation. Pancreas: No pancreatic mass. No peripancreatic inflammation. No pancreatic ductal dilation. Spleen: Calcified granuloma in a nonenlarged spleen. Adrenal glands: No adrenal mass. Kidneys and ureters: No hydronephrosis. No nephrolithiasis. Bilateral simple appearing renal cysts measuring up to 2.4 cm in size. Stomach and bowel: There is thickening of the gastric antral wall which can be due to gastritis. There is diverticulosis, most prominent in the sigmoid colon, without evidence of diverticulitis. No bowel obstruction. No intraluminal extravasation of IV contrast identified. Appendix: No evidence of appendicitis. Intraperitoneal space: No ascites or pneumoperitoneum. Vasculature: No abdominal aortic aneurysm. The mesenteric arteries are patent. The mesenteric, portal, and hepatic veins are patent. 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 Lymph nodes: No enlarged lymph nodes. Urinary bladder: The urinary bladder is decompressed with a Garvey catheter. Reproductive: A pessary is in place. Bones/joints: Multilevel disc degeneration and facet arthropathy in the lumbar spine in association with a curvature convex to the left. Soft tissues: Tiny umbilical hernia. CT/CT abdomen pelvis w con* [id number] IMPRESSION: 1. Diverticulosis without diverticulitis. The diverticular disease could be a source of lower gastrointestinal hemorrhage. 2. Thickening of the gastric antral wall which may be due to antral gastritis. COMMENTS: Consistent with the [employer]'s Incidental Findings Committee white paper (J Am Anna Radiol 2018): Any incidental renal lesion less than 1 cm or classified as too small to characterize, or any incidental cystic renal lesion characterized as simple-appearing, is likely benign. No follow-up imaging is recommended for these lesions per consensus recommendations based on imaging criteria. Radiation Dose CTDIVOL = (mGy): DLP = 900.87 (mGy-cm) Dictated By:Giovanna Webster By:Giovanna Webster Date/Time:10/23/20 1203DD/ 1201 CT facial: Radiologist's impression: [address] [place] [address] CT Scan Report Signed Patient: Sara Ortiz Unit #: [id number] : 1935 Age/Sex: 85 / F ADM Date: 10/23/20 Loc: ER Room/Bed: Attending Dr: Ordering Provider/Ordering MD: Linette Eden Date of Service: 10/23/20 Procedure(s): CT facial bones wo con* [id number] Accession Number(s): [id number] Report Number: [id number] PROCEDURE INFORMATION: Exam: CT Maxillofacial Without Contrast Exam date and time: 10/23/2020 10:38 AM Age: 85 years old Clinical indication: Injury or trauma; Fall; Blunt trauma (contusions or hematomas); Orbit/periorbital; Left; Additional info: Fall, L orbital hematoma TECHNIQUE: Imaging protocol: Computed tomography images of the face without contrast. Radiation optimization: All CT scans at this facility use at least one of these dose optimization techniques: automated exposure control; mA and/or kV adjustment per patient size (includes targeted exams where dose is matched to clinical indication); or iterative reconstruction. COMPARISON: No relevant prior studies available. RADIATION DOSE METRICS: Total DLP (mGy-cm): 1670.67 FINDINGS: Orbital cavity: No post-traumatic injury involving the globes, optic nerves, and extraocular muscles. Bones/joints: No acute facial fracture. Paranasal sinuses: No sinus fluid. Soft tissues: Mild left periorbital soft tissue swelling and small left frontal scalp hematoma. Dental: Beam hardening artifact is identified in association with dental amalgam. CT/CT facial bones wo con* [id number] IMPRESSION: No acute facial fracture. Radiation Dose CTDIVOL = (mGy): DLP = 1670.67 (mGy-cm) Dictated By: Carlos A Garcia MD Signed By: Carlos A Garcia MD Signed Date/Time: 10/23/20 1155 DD/ 1153 CT cervical: Radiologist's impression: [address] [address] [address] Scan Report Signed Patient: Sara Ortiz Unit #: [id number] : 1935 Age/Sex: 85 / F ADM Date: 10/23/20 Loc: ER Room/Bed: Attending Dr: Ordering Provider/Ordering MD: Linette Eden Date of Service: 10/23/20 Procedure(s): CT cervical spin wo con* [id number] Accession Number(s): [id number] Report Number: [id number] PROCEDURE INFORMATION: Exam: CT Cervical Spine Without Contrast Exam date and time: 10/23/2020 10:38 AM Age: 85 years old Clinical indication: Injury or trauma; Fall; Blunt trauma TECHNIQUE: Imaging protocol: Computed tomography images of the cervical spine without contrast. Radiation optimization: All CT scans at this facility use at least one of these dose optimization techniques: automated exposure control; mA and/or kV adjustment per patient size (includes targeted exams where dose is matched to clinical indication); or iterative reconstruction. COMPARISON: CT cervical spin wo con* [id number] 03/14/2020 1:57 PM RADIATION DOSE METRICS: Total DLP (mGy-cm): 333.14 FINDINGS: Bones/joints: No acute bony injury in the visualized cervical spine. Schmorl's nodes. Stable 3 mm anterolisthesis of C4 on C5. Discs/Spinal canal/Neural foramina: Multilevel degenerative change and ununited anterior osteophyte. Dental: Beam hardening artifact is identified in association with dental amalgam. Nasopharynx: 7 mm polypoid lesion in the left posterior nasal cavity. Oropharynx: Tonsillar calcifications. Lungs: Unremarkable apices as visualized. Soft tissues: Unremarkable. CT/CT cervical spin wo con* [id number] IMPRESSION: 1. No acute bony injury in the visualized cervical spine. 2. Stable 3 mm anterolisthesis of C4 on C5. Radiation Dose CTDIVOL = (mGy): DLP = 333.14 (mGy-cm) Dictated By: Carlos A Garcia MD Signed By: Carlos A Garcia MD Signed Date/Time: 10/23/20 1152 DD/ 1150 CXR: Radiologist's impression: [address] [address] XRay Report Signed Patient: Sara Ortiz Unit #: [id number] : 1935 Age/Sex: 85 / F ADM Date: 10/23/20 Loc: ER Room/Bed: Attending Dr: Ordering Provider/Ordering MD: Linette Eden Date of Service: 10/23/20 Procedure(s): XR chest 1V portable [id number] Accession Number(s): [id number] Report Number: [id number] PROCEDURE INFORMATION: Exam: XR Chest Exam date and time: 10/23/2020 10:38 AM Age: 85 years old Clinical indication: Injury or trauma; Fall; Blunt trauma (contusions or hematomas); Additional info: Syncope TECHNIQUE: Imaging protocol: XR of the chest. Views: 1 view. COMPARISON: CR XR chest 1V portable [id number] 03/14/2020 1:39 PM FINDINGS: Lungs: No pulmonary vascular congestion or pulmonary edema. No lung contusion. Pleural spaces: No pleural effusion. No pneumothorax. Heart/Mediastinum: The cardiac silhouette is not enlarged. The mediastinal contours are normal. Bones/joints: No acute osseous abnormality. Soft tissues: There is a left epicardial fat pad. Surgical clips in the right axilla/lateral chest wall. XR/XR chest 1V portable [id number] IMPRESSION: No acute abnormality. Dictated By: Juni Webster Signed By: Juni Webster Signed Date/Time: 10/23/20 1157 DD/ 1155 EKG Data^: EKG 1: EKG interpretation date: 10/23/20 EKG interpretation time: 11:57 Interpretation: Sinus rhythm Rate [address] elevation or depression changes noted Signed off by Dr. Avendano Discharge Plan Discharge Patient Disposition: Admitted As Inpatient Clinical Impression: Lower gastrointestinal hemorrhage Condition: Stable Coding Level of Care Code ED Roller Cleaner for Chg 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
[2020-10-23 09:54] LABS: Basophils # 0.1 10^3/uL (0.0-0.1); Basophils % 0.7 %; Eosinophils # 0.2 10^3/uL (0.0-0.8); Eosinophils % 1.8 %; Hematocrit 30.5 % (37.0-47.0); Hemoglobin 9.5 g/dL (11.5-15.3); Lymphocytes # 4.4 10^3/uL (0.8-4.8); Lymphocytes % 35.9 %; Mean Corpuscular HGB Conc 31.1 g/dL (30.0-36.0); Mean Corpuscular Hemoglobin 30.4 pg (28.0-34.0); Mean Corpuscular Volume 97.4 fL (81-99); Mean Platelet Volume 11.4 fL (7.4-10.4); Monocytes # 0.8 10^3/uL (0.2-0.9); Monocytes % 6.7 %; Neutrophils # 6.66 10^3/uL (1.8-7.7); Neutrophils % 54.5 %; Nucleated Red Blood Cells % 0 %; Platelet Count 188 10^3/cmm (130-400); Red Blood Count 3.13 10^6/uL (4.1-5.3); Red Cell Distribution Width 13.5 % (12.1-15.1); White Blood Count 12.2 10^3/uL (4.0-10.0)
--- NOTE | 2020-10-23 10:00 | PC.NURSE ---
Pt cleansed with soap and water, placed in a clean gown with warm blankets applied. Benitoiajulia performd at bedside by SANCHEZ Cleemnts and was grossly positive. Pt made comfortable, call light in reach. Garvey catheter placed. Pt tolerated all procedures well.
[2020-10-23 10:04] LABS: INR 1.15 (0.8-1.2)
[2020-10-23 10:05] LABS: Partial Thromboplastin Time 25.9 SECONDS (23.9-36.7)
--- NOTE | 2020-10-23 10:14 | PC.PHAR ---
pts daughter states she takes care of the pts medications-pts daughter states the pts prednisone 2.5mg daily filled on 09/27/20 30d/s was increased to 5mg po daily-pts daughter states the pt had a build up on levothyroxine 88mcg ext med history shows last filled on 05/26/20 90d/s
[2020-10-23 10:16] LABS: Lactic Sepsis W/Reflex 1.5 mmol/L (0.5-2.2)
[2020-10-23 10:17] LABS: Alanine Aminotransferase 7 U/L (0-33); Albumin Level 3.2 g/dL (3.5-5.2); Alkaline Phosphatase 63 IU/L (35-105); Anion Gap 8.6 (5-19); Aspartate Amino Transferase 12 U/L (0-32); Blood Urea Nitrogen 40 mg/dL (8-23); Calcium 7.8 mg/dL (8.5-10.5); Carbon Dioxide 29 mmol/L (22-29); Chloride 108 mmol/L (98-107); Globulin 1.7 g/dL (1.3-4.6); Glucose 146 mg/dL (65-115); Osmolality Calculated 304 mOsm/kg (285-295); Potassium 4.6 mmol/L (3.5-5.1); Sodium 141 mmol/L (136-145); Total Bilirubin 0.3 mg/dL (0.15-1.2); Total Protein 4.9 g/dL (6.6-8.7)
--- NOTE | 2020-10-23 10:19 | W.ED.GIBLEED ---
HPI - GI Bleed General: Chief complaint: GI Bleed Stated complaint: GI BLEED; NECK/HEAD/WRIST PAIN S/P FALL Time Seen by Provider: 10/23/20 09:24 Source: patient and EMS Mode of arrival: EMS Limitations: no limitations History of Present Illness: MD complaint: gross hematochezia Treatments Prior to Arrival: none PFSH ED PFSH: Social History Smoking and tobacco status: never smoked Procedures EJ/Peripheral Line Arm L: Time Out Performed: Yes Skin Cleansed in Sterile Fashion: Yes Size (gauge): 18 IV Secured and Dressing Applied: Yes Patient Tolerated Procedure: well and no complications Additional Comments: Ultrasound utilized throughout procedure. Course Vital Signs: Vital signs: Vital Signs Temperature 98.1 F 10/23/20 09:23 Pulse Rate 69 10/23/20 11:47 Respiratory Rate 18 10/23/20 11:47 Blood Pressure 171/75 10/23/20 11:47 Pulse Oximetry 98 10/23/20 11:47 MDM - GI Bleed MDM Narrative: Medical decision making narrative: Patient was seen in conjunction with SANCHEZ Clements. Please see her note for history, physical exam and medical decision-making notes. I agree with her assessment and plan. Patient was seen and evaluated by me. Patient is remained stable here through the ER visit. She has not had a low blood pressure or been tachycardic. She not had any further bloody stools. We have blood on hold for her and we have started a Protonix bolus and drip. I have reviewed the case with both Drs. Kim and Irma they agreed to admit and consult respectively. Until the patient's next hemoglobin is resulted we will keep the patient in the intensive care unit. Lab Data: Labs: Lab Results 10/23/20 10/23/20 10/23/20 Range/Units 09:20 09:20 09:20 WBC 12.2 H (4.0-10.0) 10^3/ uL RBC 3.13 L (4.1-5.3) 10^6/u L Hgb 9.5 L (11.5-15.3) g/dL Hct 30.5 L (37.0-47.0) % MCV 97.4 (81-99) fL MCH 30.4 (28.0-34.0) pg MCHC 31.1 (30.0-36.0) g/dL RDW 13.5 (12.1-15.1) % Plt Count 188 (130-400) 10^3/c mm MPV 11.4 H (7.4-10.4) fL Neut % (Auto) 54.5 % Lymph % (Auto) 35.9 % [place] % (Auto) 6.7 % Eos % (Auto) 1.8 % Baso % (Auto) 0.7 % Neut # (Auto) 6.66 (1.8-7.7) 10^3/u L Lymph # (Auto) 4.4 (0.8-4.8) 10^3/u L [place] # (Auto) 0.8 (0.2-0.9) 10^3/u L Eos # (Auto) 0.2 (0.0-0.8) 10^3/u L Baso # (Auto) 0.1 (0.0-0.1) 10^3/u L Nucleated RBC % (a uto) 0 % Nucleated RBCs # 0.0 /100WBC PT 15.10 H (12.1-14.9) SECO NDS INR 1.15 (0.8-1.2) APTT 25.9 (23.9-36.7) SECO NDS Sodium 141 (136-145) mmol/L Potassium 4.6 (3.5-5.1) mmol/L Chloride 108 H (98-107) mmol/L Carbon Dioxide 29 (22-29) mmol/L Anion Gap 8.6 (5-19) BUN 40 H (8-23) mg/dL Creatinine 1.1 H (0.5-0.9) mg/dL GFR Calculation Not Reportable Glucose 146 H (65-115) mg/dL Calculated Osmolal ity 304 H (285-295) mOsm/k g Lactic Acid (0.5-2.2) mmol/L Calcium 7.8 L (8.5-10.5) mg/dL Total Bilirubin 0.3 (0.15-1.2) mg/dL AST 12 (0-32) U/L ALT 7 (0-33) U/L Alkaline Phosphata se 63 (35-105) IU/L Troponin T Baselin e (0-10) ng/L Troponin T 120 Min [place] (0-10) ng/L Delta Troponin T (0-10) ABS# Total Protein 4.9 L (6.6-8.7) g/dL Albumin 3.2 L (3.5-5.2) g/dL Globulin 1.7 (1.3-4.6) g/dL Urine Color (Yellow) Urine Appearance (CLEAR) Urine pH (5-7) Ur Specific Gravit y (1.005-1.030) Urine Protein (Negative) Urine Glucose (UA) (Normal) Urine Ketones (Negative) Urine Blood (Negative) Urine Nitrate (Negative) Urine Bilirubin (Negative) Urine Urobilinogen (Negative) mg/dL Ur Leukocyte Loretta ase (Negative) Urine RBC (0-2) /hpf Urine WBC (0-5) /hpf Ur Squamous Epith Cells (0-5) /hpf Amorphous Sediment Urine Bacteria (NONE) /hpf Urine Mucus /hpf Blood Type Rho(D) Type Antibody Screen Crossmatch 10/23/20 10/23/20 10/23/20 Range/Units 09:20 09:43 09:43 WBC (4.0-10.0) 10^3/ uL RBC (4.1-5.3) 10^6/u L Hgb (11.5-15.3) g/dL Hct (37.0-47.0) % MCV (81-99) fL MCH (28.0-34.0) pg MCHC (30.0-36.0) g/dL RDW (12.1-15.1) % Plt Count (130-400) 10^3/c mm MPV (7.4-10.4) fL Neut % (Auto) % Lymph % (Auto) % [place] % (Auto) % Eos % (Auto) % Baso % (Auto) % Neut # (Auto) (1.8-7.7) 10^3/u L Lymph # (Auto) (0.8-4.8) 10^3/u L [place] # (Auto) (0.2-0.9) 10^3/u L Eos # (Auto) (0.0-0.8) 10^3/u L Baso # (Auto) (0.0-0.1) 10^3/u L Nucleated RBC % (a uto) % Nucleated RBCs # /100WBC PT (12.1-14.9) SECO NDS INR (0.8-1.2) APTT (23.9-36.7) SECO NDS Sodium (136-145) mmol/L Potassium (3.5-5.1) mmol/L Chloride (98-107) mmol/L Carbon Dioxide (22-29) mmol/L Anion Gap (5-19) BUN (8-23) mg/dL Creatinine (0.5-0.9) mg/dL GFR Calculation Glucose (65-115) mg/dL Calculated Osmolal ity (285-295) mOsm/k g Lactic Acid 1.5 (0.5-2.2) mmol/L Calcium (8.5-10.5) mg/dL Total Bilirubin (0.15-1.2) mg/dL AST (0-32) U/L ALT (0-33) U/L Alkaline Phosphata se (35-105) IU/L Troponin T Baselin e 12 H (0-10) ng/L Troponin T 120 Min [place] (0-10) ng/L Delta Troponin T (0-10) ABS# Total Protein (6.6-8.7) g/dL Albumin (3.5-5.2) g/dL Globulin (1.3-4.6) g/dL Urine Color (Yellow) Urine Appearance (CLEAR) Urine pH (5-7) Ur Specific Gravit y (1.005-1.030) Urine Protein (Negative) Urine Glucose (UA) (Normal) Urine Ketones (Negative) Urine Blood (Negative) Urine Nitrate (Negative) Urine Bilirubin (Negative) Urine Urobilinogen (Negative) mg/dL Ur Leukocyte Loretta ase (Negative) Urine RBC (0-2) /hpf Urine WBC (0-5) /hpf Ur Squamous Epith Cells (0-5) /hpf Amorphous Sediment Urine Bacteria (NONE) /hpf Urine Mucus /hpf Blood Type O Negative Rho(D) Type Negative / 0 Antibody Screen Negative Crossmatch See Detail 10/23/20 10/23/20 Range/Units 09:50 11:26 WBC (4.0-10.0) 10^3/ uL RBC (4.1-5.3) 10^6/u L Hgb (11.5-15.3) g/dL Hct (37.0-47.0) % MCV (81-99) fL MCH (28.0-34.0) pg MCHC (30.0-36.0) g/dL RDW (12.1-15.1) % Plt Count (130-400) 10^3/c mm MPV (7.4-10.4) fL Neut % (Auto) % Lymph % (Auto) % [place] % (Auto) % Eos % (Auto) % Baso % (Auto) % Neut # (Auto) (1.8-7.7) 10^3/u L Lymph # (Auto) (0.8-4.8) 10^3/u L [place] # (Auto) (0.2-0.9) 10^3/u L Eos # (Auto) (0.0-0.8) 10^3/u L Baso # (Auto) (0.0-0.1) 10^3/u L Nucleated RBC % (a uto) % Nucleated RBCs # /100WBC PT (12.1-14.9) SECO NDS INR (0.8-1.2) APTT (23.9-36.7) SECO NDS Sodium (136-145) mmol/L Potassium (3.5-5.1) mmol/L Chloride (98-107) mmol/L Carbon Dioxide (22-29) mmol/L Anion Gap (5-19) BUN (8-23) mg/dL Creatinine (0.5-0.9) mg/dL GFR Calculation Glucose (65-115) mg/dL Calculated Osmolal ity (285-295) mOsm/k g Lactic Acid (0.5-2.2) mmol/L Calcium (8.5-10.5) mg/dL Total Bilirubin (0.15-1.2) mg/dL AST (0-32) U/L ALT (0-33) U/L Alkaline Phosphata se (35-105) IU/L Troponin T Baselin e (0-10) ng/L Troponin T 120 Min [place] 10.68 H (0-10) ng/L Delta Troponin T -1.32 L (0-10) ABS# Total Protein (6.6-8.7) g/dL Albumin (3.5-5.2) g/dL Globulin (1.3-4.6) g/dL Urine Color Straw (Yellow) Urine Appearance Clear (CLEAR) Urine pH 5 (5-7) Ur Specific Gravit y 1.015 (1.005-1.030) Urine Protein Neg (Negative) Urine Glucose (UA) Norm (Normal) Urine Ketones Negative (Negative) Urine Blood Trace H (Negative) Urine Nitrate Negative (Negative) Urine Bilirubin 1+ H (Negative) Urine Urobilinogen Norm (Negative) mg/dL Ur Leukocyte Loretta ase 1+ H (Negative) Urine RBC Rare (0-2) /hpf Urine WBC 15-25 H (0-5) /hpf Ur Squamous Epith Cells 0-4 H (0-5) /hpf Amorphous Sediment Not Reportable Urine Bacteria 1+ H (NONE) /hpf Urine Mucus Trace /hpf Blood Type Rho(D) Type Antibody Screen Crossmatch Discharge Plan Discharge Patient Disposition: Admitted As Inpatient Clinical Impression: Lower gastrointestinal hemorrhage Condition: Stable Coding Level of Care Code ED Community Service Manager for Rosemary Lares
[2020-10-23 10:20] LABS: Bilirubin Urine 1+ (Negative); Blood Urine Trace (Negative); Glucose Urine UA Norm (Normal); Ketones Urine Negative (Negative); Nitrate Urine Negative (Negative); Protein Urine Neg (Negative); Specific Gravity, Urine 1.015 (1.005-1.030); Urine Appearance Clear (CLEAR); Urine Color Straw (Yellow); Urobilinogen Urine Norm (Negative); pH Urine 5 (5-7)
[2020-10-23 10:21] LABS: Add Urine Microscopic? YES; Leukocyte Esterase Urine 1+ (Negative); RBC Urine RARE /hpf (0-2); Squamous Epithelial Cell Urine 0-4 /hpf (0-5); WBC Urine 15-25 /hpf (0-5)
[2020-10-23 10:22] LABS: Add Urine Culture? Yes; Bacteria Urine 1+ /hpf; Mucus Urine TRACE /hpf
--- NOTE | 2020-10-23 10:27 | ECG_ITS ---
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 Measurements Intervals [place] Rate: 68 P: 63 OK: 146 QRS: 28 QRSD: 83 T: 52 QT: 397 QTc: 424 Interpretive Statements SINUS RHYTHM Compared to ECG 03/14/2020 16:04:13 Myocardial infarct finding no longer present Electronically Signed On 10-24-2020 12:07:51 CDT by Ivonne Estrada M.D. [id number]
[2020-10-23 10:51] LABS: Troponin(5th) Baseline 12 ng/L (0-10)
[2020-10-23] MEDS: iodixanol 320 mg/mL 100mL Btl IV (11:15)
[2020-10-23] MEDS: cefTRIAXone 1,000 MG in sodium chloride 0.9% (plus) 50 ML 100 MG IV (11:44)
[2020-10-23 11:48] LABS: Troponin 5 2HR 10.68 ng/L (0-10)
[2020-10-23 11:49] LABS: Troponin 5 2HR Delta -1.32 ABS# (0-10)
--- NOTE | 2020-10-23 12:02 | PC.NURSE ---
C-collar removed per VO by Dr Avendano
--- NOTE | 2020-10-23 12:27 | ECG_ITS ---
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 Measurements Intervals [place] Rate: 76 P: 44 ND: 144 QRS: 4 QRSD: 82 T: 41 QT: 395 QTc: 444 Interpretive Statements SINUS RHYTHM Compared to ECG 10/23/2020 11:57:16 No significant changes Electronically Signed On 10-24-2020 12:19:55 CDT by Ivonne Estrada M.D. [id number]
--- NOTE | 2020-10-23 12:38 | PC.NURSE ---
SANCHEZ Clements at bedside to discuss with pt and daughter pt pending admission. Pt placed on bedpan. EKG done.
[2020-10-23] MEDS: pantoprazole 40 mg SDV IVP ×2 (12:57→18:56)
--- NOTE | 2020-10-23 14:54 | P.CONIM_ITS ---
Providers/Reason For Consult Consulting Physican/Specialty*: Sahil Solis MD Reason for Consult*: Lower GI bleed Requesting Physcian: Dr. Guerra Attending Physician: Rupa Kim MD Primary Care Provider: Jesús Garcia MD History of Present Illness History of Present Illness Chief Complaint: Blood in stool History of present illness: Ms.Lula Ortiz is a 85 year old female With associated dementia,Hypothyroidism, syncope. Apparently the patient had blood per rectum and she reports to me that she had vaginal bleeding as well. Patient presented to the emergency department for further work-up and on her blood work was found to haveHemoglobin of 9.5, Platelet count 1 88,000And INR of 1.15, BUN 40 and creatinine of 1.1. Patient Underwent CT of the abdomen and pelvis which showed diverticulosis without any evidence of diverticulitis. No evidence of history of hematemesis or bleeding per other orifices. Patient has been on prednisone for her arthritisAnd baby aspirin yet it does not appear that she has been on PPI therapy. Patient had a colonoscopy several years ago and was reported as normal per her description. General surgery was consulted for further evaluation and potential intervention CT scan of the abdomen and pelvis found to show. 1. Diverticulosis without diverticulitis. The diverticular disease could be a source of lower gastrointestinal hemorrhage. 2. Thickening of the gastric antral wall which may be due to antral gastritis. During my talk with patient's daughter appears that she is her power of supervisor tumblers. Review of Systems General: Reports: 10 or more systems reviewed and unremarkable except in HPI and below Meds/Allergies Home Medications and Allergies Home Medications Medication Instructions Recorded Confirmed Last Taken Type levothyroxine 88 mcg PO QAM 06/25/19 10/23/20 06/24/19 History aspirin [Aspir-81] 81 mg PO QAM 10/23/20 10/23/20 Unknown History fluoxetine 20 mg PO QAM 10/23/20 10/23/20 Unknown History prednisone 5 mg PO QAM 10/23/20 10/23/20 Unknown History vitamin B complex 1 tab PO BID 10/23/20 10/23/20 Unknown History Allergies Allergy/AdvReac Type Severity Reaction Status Date / Time No Known Allergies Allergy Verified 10/23/20 14:56 PFSH Acute PFSH: Medical History COVID-06 march 2020 Hypothyroidism (acquired) Social History Smoking and tobacco status: never smoked Vitals/I&O/Wt Last Vital Signs Temp 98.1 F 10/23/20 09:23 Pulse 78 10/23/20 14:03 Resp 18 10/23/20 14:03 BP 143/76 10/23/20 14:03 Pulse Ox 98 10/23/20 14:03 10/22/20 10/23/20 10/23/20 22:59 06:59 14:59 Intake Total 50 / 50 Balance 50 / 50 Weight last 48 hrs Weight 150 lb Physical Exam Narrative: EXAM NARRATIVE: Patient is conscious alert oriented BMI 23 Head and neck examination PERRLA no masses no cervical lymphadenopathy no jaundice Cardiac examination audible S1-S2 no murmurs no gallops no arrhythmias Chest is clear bilateral,abscence of Rhonchi or wheezes,no surgical emphysema Abdomen nontender nondistended soft no organomegaly guarding or rigidity/no signs of peritonitis Extremities no cyanosis no clubbing no edema Urinary Catheter Management^: Garvey: Cath Placed During This Visit: yes Urinary Catheter Date of Insertion: 10/23/20 Urinary Catheter Time of Insertion: 09:50 A&P Assessment and plan (1) Lower gastrointestinal hemorrhage: Plan of care; After thorough history and physical examination and reviewing the chart,And CT scan of the abdomen and pelvis with my personal interpretation of the images that showed pessary lifting up the uterus and my concern that the patient may have a rectovaginal fistula according to the patient's history that she has been having blood per vagina and rectum. Yet no evidence of a fistula on the CT scan.Will plan to perform a diagnostic esophagogastroduodenoscopy and diagnostic colonoscopy with possible biopsy and possible polypectomy.Tomorrow in the GI lab allowing appropriate resuscitation per hospitalist service. And potential blood transfusion if indicated.Tomorrow in the GI lab allowing appropriate resuscitation per hospitalist service. And potential blood transfusion if indicated. I discussed with the patientAnd her daughter Over the phone In the presence of JUANA Rodriguez in detail the risks,benefits,alternatives and indications.The risk of aspiration, bleeding, soft tissue injury, perforation of the stomach/esophagus/colon and other potential concomitant complications were explained to the patient in details also the potential need for Thoracotomy and or Laproscoy/Laparotomy to repair any related complications including but not limited to colectomy and or Closotomy. The patient And her daughter understood this well and did agree to proceed. Rationale was carefully and clearly discussed with the patient And her daughter.Appropriate informed consent have been reviewed and signed Verbal and written Instructions were given to the patient for colonoscopy prep. Status: Acute Consult Attestations Medical Necessity Statement: Patient will require inpatient hospitalization past 2 midnights for appropriate resuscitation and endoscopic intervention Time Spent in Patient Care: 16 - 35 minutes (>than 50% of time spent in counselling and/or direct pt care on unit) . Coding Level of Care Code Acute Wash Crew Person for Rosemary Lares Diagnoses Lower gastrointestinal hemorrhage K92.2
[2020-10-23 15:29] LABS: Hematocrit 25.7 % (37.0-47.0); Hemoglobin 8.3 g/dL (11.5-15.3)
[2020-10-23 15:45] LABS: Troponin 5 6HR 11.36 ng/L (0-10)
[2020-10-23 15:48] LABS: Troponin 5 6HR Delta -0.64 ng/L (0-12)
[2020-10-23] MEDS: peg /e-lyte soln 4,000 mL Btl 4000 ML PO (15:49)
[2020-10-23] MEDS: sodium chloride 0.9% 1,000 ML 100 ML IV (15:49)
--- NOTE | 2020-10-23 17:59 | P.HP_ITS ---
Providers/Chief Complaint Admitting Physician: Rupa Kim MD Primary Care Provider: Jessú Garcia MD Chief Complaint: GI BLEED; NECK/HEAD/WRIST PAIN S/P FALL History of Present Illness Sara Ortiz is a 85 year old female with a past medical history as outlined below, and in normal state of health until this morning when she woke up to go to the bathroom and fell there. She does not remember if she passed out. When she woke up she realized she was in a pool of blood mixed with dark-colored stools. She also suffered injury to the face, has a hematoma on the left side of her temporal region. Denies any past history of GI bleed. Had a colonoscopy several years ago, does not remember results. Underwent CT of the abdomen and pelvis which showed diverticulosis without any evidence of diverticulitis. Denies being sick over the past few days. No hematemesis. Patient is not currently on any blood thinners. Review of Systems General: Reports: 10 or more systems reviewed and unremarkable except in HPI and below Const: Denies: fever(s), chills or body aches Eyes: Denies: change in vision, blurry vision or photophobia ENMT: Reports: hoarseness; Denies: throat pain, enlarged tonsils, odynophagia or nasal congestion Card: Denies: chest pain, palpitations, irregular heart rhythm, edema, swelling of feet/ankles, lightheadedness, pre-syncope, dyspnea on exertion or orthopnea Resp: Denies: dyspnea, productive cough, non-productive cough, wheezing, stridor, pain on inspiration, change in phlegm color, hemoptysis or chest congestion GI: Denies: abdominal pain, nausea, vomiting, hematemesis, coffee ground emesis, dysphagia, heartburn, diarrhea, constipation, GI cramping, change in stool character, hematochezia or melena : Denies: flank pain, difficulty voiding, dysuria, urinary frequency, urinary urgency, urinary hesitancy or hematuria Musc: Denies: neck pain, back pain, extremity pain, joint swelling, joint warmth or deformity Neuro: Denies: headache(s), numbness in extremities, weakness in extremities, sensory changes, difficulty walking, frequent falls, dizziness, vertigo, behavioral changes, Slurred speech present or seizure-like activity Psych: Denies: anxiety, depression, suicidal ideation or homicidal ideation Endo: Denies: polyuria, polydipsia, tired all the time, cold intolerance or hot flashes Osorio/Lymph: Denies: easy bruising or easy bleeding Medications/Allergies Home Medications Medication Instructions Recorded Confirmed Last Taken Type levothyroxine 88 mcg PO QAM 06/25/19 10/23/20 06/24/19 History aspirin [Aspir-81] 81 mg PO QAM 10/23/20 10/23/20 Unknown History fluoxetine 20 mg PO QAM 10/23/20 10/23/20 Unknown History prednisone 5 mg PO QAM 10/23/20 10/23/20 Unknown History vitamin B complex 1 tab PO BID 10/23/20 10/23/20 Unknown History Allergies Allergy/AdvReac Type Severity Reaction Status Date / Time No Known Allergies Allergy Verified 10/23/20 14:56 PFSH Acute PFSH: Medical History COVID-06 march 2020 Hypothyroidism (acquired) Social History Smoking and tobacco status: never smoked Vitals/I&O/Wt Last Vital Signs Temp 98.1 F 10/23/20 09:23 Pulse 84 10/23/20 17:15 Resp 27 H 10/23/20 17:15 BP 147/77 10/23/20 17:15 Pulse Ox 96 10/23/20 17:15 10/23/20 10/23/20 10/23/20 06:59 14:59 22:59 Intake Total 50 / 50 Balance 50 / 50 Weight last 48 hrs Weight 63.049 kg Weight 68.039 kg Physical Exam Narrative: EXAM NARRATIVE: General: No acute distress, AO x3 HEENT: PERRLA, pupils bilaterally equal and reactive, pallors not present Chest: Normal vesicular breath sounds, no added sounds, equal good air entry bilaterally CVS: S1-S2 regular, no murmurs, no tachycardia, no gallops, no rubs Abdomen: Soft, nontender, no organomegaly, bowel sounds present Neuro: No focal deficits, no facial deformity, AO x3, power 5/5 in all limbs Extremities: no clubbing, edema or cyanosis Urinary Catheter Management^: Garvey: Cath Placed During This Visit: yes Urinary Catheter Date of Insertion: 10/23/20 Urinary Catheter Time of Insertion: 09:50 Data : 10/23/20 15:15 10/23/20 09:20 A&P Assessment and plan (1) Lower gastrointestinal hemorrhage: Supected lower GI bleed from diverticulosis and resulting syncope from volume loss Hb at 9.5, recheck in 3 hrs Started on protonix in the ER surgery consult with Dr. pearson for endoccopic evalution Tranfuse if Hb < 7 Status: Acute (2) Anemia: due to blood loss Transfusion thershold as above Status: Acute (3) Facial hematoma: from fall, monitor closely CT head without intracranial bleeding Status: Acute Attestations Medical Necessity Statement*: >2 midnight anticipated for endoscopic evalution, close monitoring of H& H Coding Level of Care Code Acute Rubbish Collection Supervisor for Chg Fwd Diagnoses Lower gastrointestinal hemorrhage K92.2 Anemia D64.9 Facial hematoma S00.83XA
--- NOTE | 2020-10-23 18:50 | PC.NURSE ---
At 1630 patient had one liquid BM using the BSC. Stool was dark maroon in colorand unformed. Patient requires at leastone assist to get out of bed and states she feels a little dizzy when standing.
[2020-10-23] MEDS: dextrose 5%-sod chloride 0.9% 1,000 ML 75 ML IV (18:57)
[2020-10-24] VITALS (47 sets, daily range): BP systolic 124–196; BP diastolic 66–97; PULSE 76–107; RESP 4–25; TEMP 36.8–37.4; O2SAT 1–100
[2020-10-24 02:16] LABS: Hematocrit 22.4 % (37.0-47.0)
--- NOTE | 2020-10-24 04:57 | PC.NURSE ---
Blood was started on time, delay was noted only because patient had to go to the bedside commode so wasn't able to document vitals until patient was back into bed, vitals had been already taken when blood was hung but patient had to go to bathroom so fast I was unable to plug them into the computer until after she was safely on the commode.
--- NOTE | 2020-10-24 05:33 | PC.NURSE ---
Shift Summary Patient has been pleasant but confused most night, She sips her golytle so was only able to get her to drink half the jug, with that she had 2 dark red marroon bowel movements one moderate the other small, her midnight hemaglobin came back at [address] Slater if he wanted to transfuse one unit, recived orders for 1 Unit of blood and she is NPO for a colonoscopy and EGD today, consent already done and in chart. Patient on IVF and has a condon with good urine output. Patient not complaining of any pain during the night and she has no fevers.
[2020-10-24] MEDS: sodium chloride 0.9% (100 ml) 100 ML 50 ML (06:45)
--- NOTE | 2020-10-24 07:53 | P.ANESASSM_ITS ---
Pre-Anesthetic Assessment Pre-Anesthetic Assessment: Height/Weight: Height 1.66 m Weight 63.049 kg Temp Pulse Resp BP Pulse Ox 99.4 F 84 17 174/72 95 10/24/20 06:20 10/24/20 06:45 10/24/20 06:45 10/24/20 06:45 10/24/20 06:45 Preop Diagnosis: LOWER GI BLEEDING Proposed Procedure: Operation Date: 10/24/20 08:00 Proposed Procedures p Colonoscopy(Not Applicable) - Sahil Solis MD Was Beta Gabriella taken within 24 hours: N/A Was Clonidine taken within 24 hours: N/A Social: Social History: No alcohol and No tobacco Exam: Pre-Anes Outpt Exam: alert, oriented x 3, clear to auscultation bilaterally and regular rate & rhythm Airway: Submandibular: WNL Cervical ROM: WNL MP: 2 Dentition: Full CV/HEM: CV/HEM: Anemia and HTN Metabolic: Metabolic: Thyroid Neuropsych: Neuropsych: Dementia Anesthetic Plan: ASA status: 3 Anesthesia: MAC Risk of > 500 ml blood loss (7ml/kg in children): No Meds/Allergies Current Medications: Current Medications Generic Name Dose Route Start Last Admin Trade Name Freq PRN Reason Stop Dose Admin Dextrose/Sodium Ch loride 1,000 mls @ 75 ml s/hr 10/23/20 18:30 10/23/20 18:57 Dextrose 5%-Sod Chloride 0.9% IV 75 mls/hr .[id number] CHOLO Administration Pantoprazole Sodiu m 40 mg 10/23/20 18:30 10/23/20 18:56 Pantoprazole 40 Mg Sdv IVP 40 mg Q24H CHOLO Administration PFSH Anesthesia PFSH: Medical History COVID-06 march 2020 Hypothyroidism (acquired) Social History Smoking and tobacco status: never smoked Data Anesthesia CBC & Chem 7: 10/24/20 01:12 10/23/20 09:20 Other Labs: Laboratory Results - last 48 hr 10/23/20 10/23/20 10/23/20 09:20 09:20 09:20 WBC 12.2 H RBC 3.13 L Hgb 9.5 L Hct 30.5 L MCV 97.4 MCH 30.4 MCHC 31.1 RDW 13.5 Plt Count 188 MPV 11.4 H Neut % (Auto) 54.5 Lymph % (Auto) 35.9 [place] % (Auto) 6.7 Eos % (Auto) 1.8 Baso % (Auto) 0.7 Neut # (Auto) 6.66 Lymph # (Auto) 4.4 [place] # (Auto) 0.8 Eos # (Auto) 0.2 Baso # (Auto) 0.1 Nucleated RBC % (auto) 0 Nucleated RBCs # 0.0 PT 15.10 H INR 1.15 APTT 25.9 Sodium 141 Potassium 4.6 Chloride 108 H Carbon Dioxide 29 Anion Gap 8.6 BUN 40 H Creatinine 1.1 H GFR Calculation Not Reportable Glucose 146 H Calculated Osmolality 304 H Lactic Acid Calcium 7.8 L Total Bilirubin 0.3 AST 12 ALT 7 Alkaline Phosphatase 63 Troponin T Baseline Troponin T 120 Minute Delta Troponin T Troponin T Hi Sens 6Hr Troponin T Hi Sens 6Hr Delta Total Protein 4.9 L Albumin 3.2 L Globulin 1.7 Urine Color Urine Appearance Urine pH Ur Specific [place] Urine Protein Urine Glucose (UA) Urine Ketones Urine Blood Urine Nitrate Urine Bilirubin Urine Urobilinogen Ur Leukocyte Esterase Urine RBC Urine WBC Ur Squamous Epith Cells Amorphous Sediment Urine Bacteria Urine Mucus Blood Type Rho(D) Type Antibody Screen Crossmatch 10/23/20 10/23/20 10/23/20 09:20 09:43 09:43 WBC RBC Hgb Hct MCV MCH MCHC RDW Plt Count MPV Neut % (Auto) Lymph % (Auto) [place] % (Auto) Eos % (Auto) Baso % (Auto) Neut # (Auto) Lymph # (Auto) [place] # (Auto) Eos # (Auto) Baso # (Auto) Nucleated RBC % (auto) Nucleated RBCs # PT INR APTT Sodium Potassium Chloride Carbon Dioxide Anion Gap BUN Creatinine GFR Calculation Glucose Calculated Osmolality Lactic Acid 1.5 Calcium Total Bilirubin AST ALT Alkaline Phosphatase Troponin T Baseline 12 H Troponin T 120 Minute Delta Troponin T Troponin T Hi Sens 6Hr Troponin T Hi Sens 6Hr Delta Total Protein Albumin Globulin Urine Color Urine Appearance Urine pH Ur Specific [place] Urine Protein Urine Glucose (UA) Urine Ketones Urine Blood Urine Nitrate Urine Bilirubin Urine Urobilinogen Ur Leukocyte Esterase Urine RBC Urine WBC Ur Squamous Epith Cells Amorphous Sediment Urine Bacteria Urine Mucus Blood Type O Negative Rho(D) Type Negative / 0 Antibody Screen Negative Crossmatch See Detail 10/23/20 10/23/20 10/23/20 09:50 11:26 15:15 WBC RBC Hgb Hct MCV MCH MCHC RDW Plt Count MPV Neut % (Auto) Lymph % (Auto) [place] % (Auto) Eos % (Auto) Baso % (Auto) Neut # (Auto) Lymph # (Auto) [place] # (Auto) Eos # (Auto) Baso # (Auto) Nucleated RBC % (auto) Nucleated RBCs # PT INR APTT Sodium Potassium Chloride Carbon Dioxide Anion Gap BUN Creatinine GFR Calculation Glucose Calculated Osmolality Lactic Acid Calcium Total Bilirubin AST ALT Alkaline Phosphatase Troponin T Baseline Troponin T 120 Minute 10.68 H Delta Troponin T -1.32 L Troponin T Hi Sens 6Hr 11.36 H Troponin T Hi Sens 6Hr Delta -0.64 L Total Protein Albumin Globulin Urine Color Straw Urine Appearance Clear Urine pH 5 Ur Specific [place] 1.015 Urine Protein Neg Urine Glucose (UA) Norm Urine Ketones Negative Urine Blood Trace H Urine Nitrate Negative Urine Bilirubin 1+ H Urine Urobilinogen Norm Ur Leukocyte Esterase 1+ H Urine RBC Rare Urine WBC 15-25 H Ur Squamous Epith Cells 0-4 H Amorphous Sediment Not Reportable Urine Bacteria 1+ H Urine Mucus Trace Blood Type Rho(D) Type Antibody Screen Crossmatch 10/23/20 10/23/20 10/24/20 15:15 18:35 01:12 WBC RBC Hgb 8.3 L 8.0 L 7.0 L Hct 25.7 L 25.0 L 22.4 L MCV MCH MCHC RDW Plt Count MPV Neut % (Auto) Lymph % (Auto) [place] % (Auto) Eos % (Auto) Baso % (Auto) Neut # (Auto) Lymph # (Auto) [place] # (Auto) Eos # (Auto) Baso # (Auto) Nucleated RBC % (auto) Nucleated RBCs # PT INR APTT Sodium Potassium Chloride Carbon Dioxide Anion Gap BUN Creatinine GFR Calculation Glucose Calculated Osmolality Lactic Acid Calcium Total Bilirubin AST ALT Alkaline Phosphatase Troponin T Baseline Troponin T 120 Minute Delta Troponin T Troponin T Hi Sens 6Hr Troponin T Hi Sens 6Hr Delta Total Protein Albumin Globulin Urine Color Urine Appearance Urine pH Ur Specific [place] Urine Protein Urine Glucose (UA) Urine Ketones Urine Blood Urine Nitrate Urine Bilirubin Urine Urobilinogen Ur Leukocyte Esterase Urine RBC Urine WBC Ur Squamous Epith Cells Amorphous Sediment Urine Bacteria Urine Mucus Blood Type Rho(D) Type Antibody Screen Crossmatch Cardiac Studies: No Data to Display
[2020-10-24 09:11] LABS: Hematocrit 26.1 % (37.0-47.0); Hemoglobin 8.3 g/dL (11.5-15.3)
[2020-10-24] MEDS: dextrose 5%-sod chloride 0.9% 1,000 ML 75 ML IV (11:23)
--- NOTE | 2020-10-24 11:28 | PM.PN ---
Subjective Subjective: Interval history: Hemoglobin at 8.3 this morning. Underwent upper and lower GI endoscopy which showed evidence of gastritis, and colonic polyp which was removed. Diverticulosis and old blood was encountered. No active bleeding identified. Patient is hemodynamically stable, tending towards hypertension this morning. Medications: Reviewed: Yes Vitals/I&O/Wt Last Vital Signs Temp 98.9 F 10/24/20 07:54 Pulse 76 10/24/20 09:15 Resp 21 H 10/24/20 09:15 BP 190/88 10/24/20 09:15 Pulse Ox 99 10/24/20 09:15 10/23/20 10/24/20 10/24/20 22:59 06:59 14:59 Intake Total 513 / 563 0 / 563 1800 / 1800 Output Total 780 / 780 650 / 1430 100 / 100 Balance -267 / -217 -650 / -867 1700 / 1700 Weight last 48 hrs Weight 63.049 kg Weight 68.039 kg Physical Exam Narrative: EXAM NARRATIVE: General: No acute distress, AO x3 HEENT: PERRLA, pupils bilaterally equal and reactive, pallors not present Chest: Normal vesicular breath sounds, no added sounds, equal good air entry bilaterally CVS: S1-S2 regular, no murmurs, no tachycardia, no gallops, no rubs Abdomen: Soft, nontender, no organomegaly, bowel sounds present Neuro: No focal deficits, no facial deformity, AO x3, power 5/5 in all limbs Extremities: no clubbing, edema or cyanosis Urinary Catheter Management^: Garvey: Cath Placed During This Visit: yes Reason for Continuing Indwelling Catheter: Accurate Measurement of Urinary Output in Critically Ill Patients Urinary Catheter Date of Insertion: 10/23/20 Urinary Catheter Time of Insertion: 09:50 Data : 10/24/20 08:55 10/23/20 09:20 A&P Assessment and plan (1) Lower gastrointestinal hemorrhage: Status post upper and lower endoscopy today which showed evidence of gastritis which may be related to steroid use, rectal polyp, diverticular bleeding, no active bleeding encountered Hemoglobin drifting down to 8.3, however patient is currently hemodynamically stable. 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 for any worsening, currently appears to be stable, does not impact patient's vision CT head without intracranial bleeding Status: Acute Qualifiers: Encounter type: initial encounter Qualified Code(s): S00.83XA - Contusion of other part of head, initial encounter (4) Hypertension: Systolic blood pressure noted to be up to 170 systolic, start amlodipine 10 mg daily now monitor blood pressure closely Status: Acute Qualifiers: Hypertension type: essential hypertension Qualified Code(s): I10 - Essential (primary) hypertension (5) Syncope: Likely as a result of volume loss from GI bleed, no recurrent episodes during course of admission, no events on telemetry Status: Acute Qualifiers: Syncope type: unspecified Qualified Code(s): R55 - Syncope and collapse Additional A&P Information DVT prophylaxis contraindicated due to GI bleeding, SCDs only Full code Transfer out of ICU to [facility] today Attestations Medical Necessity Statement*: Hemoglobin drifting down, needs ongoing close monitoring for any further bleeding and hemoglobin drop, uncontrolled hypertension, add amlodipine Coding Level of Care Code Acute Science Liaison for Chg Fwd Diagnoses Lower gastrointestinal hemorrhage K92.2 Anemia D62 Anemia type: other cause Other causes of anemia: acute posthemorrhagic Facial hematoma S00.83XA Encounter type: initial encounter Hypertension I10 Hypertension type: essential hypertension Syncope R55 Syncope type: unspecified
--- NOTE | 2020-10-24 11:46 | ANE.PACU2 ---
Inpatient post-anesthesia follow up: Airway intact: Yes Vital signs: Temperature 98.9 F Pulse Rate [Monito r] 89 Pulse Rate 76 Respiratory Rate 21 Blood Pressure [Le ft Arm] 125/65 Blood Pressure 190/88 Pulse Oximetry 99 Oxygen Delivery Me thod [ Nasal Cannula Current Rate & Del asael] Oxygen Delivery Me thod Room Air Oxygen Flow Rate [ Current Rate 2 & Delivery] Fraction of Inspir ed Oxygen Hydration adequate: Yes Nausea and vomiting: No Pain level: 1 Mental status: Baseline
--- NOTE | 2020-10-24 13:05 | PC.NURSE ---
medical technical writer spoke with Poison control. They state that pt would benefit from a Isoprolol ETOH test. Let Dr. Purcell know this and that they recommend that the Serum Osmolality be sped up do to it taking a week, sent out.
[2020-10-24] MEDS: amlodipine 10 mg Tablet PO (13:12)
[2020-10-24 13:45] LABS: Hematocrit 26.5 % (37.0-47.0); Hemoglobin 8.3 g/dL (11.5-15.3)
[2020-10-24] MEDS: pantoprazole DR 40 mg Tablet PO (18:07)
[2020-10-24 18:32] LABS: H. Pylori / CLO Test Negative
[2020-10-25] VITALS: BP 158/67; PULSE 86; RESP 20; TEMP 36.6; O2SAT 95
[2020-10-25 04:00] VITALS: BP 166/66; PULSE 79; RESP 18; TEMP 37.1; O2SAT 95
[2020-10-25 05:06] LABS: Basophils # 0.1 10^3/uL (0.0-0.1); Basophils % 0.6 %; Eosinophils # 0.4 10^3/uL (0.0-0.8); Eosinophils % 4.4 %; Hematocrit 26.4 % (37.0-47.0); Hemoglobin 8.5 g/dL (11.5-15.3); Lymphocytes # 1.9 10^3/uL (0.8-4.8); Lymphocytes % 21.8 %; Mean Corpuscular HGB Conc 32.2 g/dL (30.0-36.0); Mean Corpuscular Volume 93.3 fL (81-99); Mean Platelet Volume 11.5 fL (7.4-10.4); Monocytes # 0.7 10^3/uL (0.2-0.9); Monocytes % 8.2 %; Neutrophils # 5.74 10^3/uL (1.8-7.7); Neutrophils % 64.6 %; Nucleated Red Blood Cells % 0 %; Platelet Count 135 10^3/cmm (130-400); Red Blood Count 2.83 10^6/uL (4.1-5.3); Red Cell Distribution Width 15.1 % (12.1-15.1); White Blood Count 8.9 10^3/uL (4.0-10.0)
[2020-10-25] MEDS: fluoxetine 20 mg Capsule PO (05:22)
[2020-10-25] MEDS: predniSONE 5 mg Tablet PO (05:22)
[2020-10-25] MEDS: levothyroxine 88 mcg Tablet PO (05:22)
[2020-10-25 05:27] LABS: Alanine Aminotransferase 7 U/L (0-33); Albumin Level 3.2 g/dL (3.5-5.2); Alkaline Phosphatase 68 IU/L (35-105); Anion Gap 8.4 (5-19); Aspartate Amino Transferase 16 U/L (0-32); Blood Urea Nitrogen 12 mg/dL (8-23); Carbon Dioxide 27 mmol/L (22-29); Chloride 106 mmol/L (98-107); Globulin 1.9 g/dL (1.3-4.6); Glucose 106 mg/dL (65-115); Osmolality Calculated 286 mOsm/kg (285-295); Potassium 3.4 mmol/L (3.5-5.1); Sodium 138 mmol/L (136-145); Total Bilirubin 0.4 mg/dL (0.15-1.2); Total Protein 5.1 g/dL (6.6-8.7)
[2020-10-25] MEDS: dextrose 5%-sod chloride 0.9% 1,000 ML 75 ML IV (05:43)
[2020-10-25 08:00] VITALS: BP 169/74; PULSE 80; RESP 18; TEMP 37.2; O2SAT 93
[2020-10-25] MEDS: pantoprazole DR 40 mg Tablet PO ×2 (09:09→16:53)
[2020-10-25] MEDS: amlodipine 10 mg Tablet PO (09:09)
--- NOTE | 2020-10-25 11:02 | CT_ITS ---
WS: [id number] CT CHEST ANGIOGRAPHY WITH REFORMATS HISTORY: Syncope TECHNIQUE: Contiguous axial images are obtained through the chest during arterial injection of intrav enous contrast. Images are reconstructed to evaluate the pulmonary arteries. MIP imaging also reviewe d. All CT scans at [facility] use at least one of these dose optimization techniques: aut omated exposure control; mA and/or kV adjustment per patient size (includes targeted exams where dose is matched to clinical indication); or iterative reconstruction. CONTRAST: Visipaque 320; 95 mL IV. DLP: 506.95 mGy.cm COMPARISON: None available. Good opacification of the pulmonary arteries. No filling defects are evident. Normal size aorta. Norm al size pulmonary artery. There is no RIGHT heart strain. Mild enlargement of the LEFT ventricle and LEFT atrium. No filling defect in the LEFT atrial appendage. No pericardial or pleural effusions. No mediastinal or hilar adenopathy. RIGHT middle lobe linear opacification measures 12 mm. 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 Moderate size hiatal hernia. No adrenal mass. Variable enhancement within the kidneys may be due to p hase of injection of the contrast. Osteopenia. CT/CT angio chest PE protcl [id number] IMPRESSION: 1. No pulmonary embolism. 2. Linear 12 mm nodule in the RIGHT middle lobe. Recommend follow-up CT evalua tion in 3 months. 3. Moderate hiatal hernia. 4. LEFT heart enlargement. 5. 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
--- NOTE | 2020-10-25 11:02 | USCV_ITS ---
Sara Ortiz Age: 85 Gender: F : 1935 Exam Date: 10/25/2020 13:04 Ordering Phys: Lane Davis MD Technologist: Dayton Gerber [place] [facility] [place]: SYNCOPE Risk Factors: None Previous Vascular Surgery: None Right Brachial BP: / Left Brachial BP: / Right Left Velocity (cm/s) Spectral Plaque Velocity (cm/s) Spectral Plaque Syst/Diast Broadening Syst/Diast Broadening 95.90/ 19.80 Prox CCA 72.70 / 15.80 55.50/ 13.10 Mid CCA 68.30 / 14.00 55.50/ 13.10 Distal CCA 64.80 / 16.60 84.70/ 20.50 Prox ICA 63.10 / 13.10 94.20/ 24.80 Mid ICA 82.50 / 18.30 89.80/ 29.90 Distal ICA 83.30 / 27.80 69.40 ECA 106.00 0.98 ICA/CCA 1.15 Antegrade Vertebral Antegrade 46.70/ 11.70 cm/s 42.90/ 4.00 cm/s Bi Subclavian Bi 83.30 58.70 FINDINGS Comparison: none available. No significant elevation of systolic or diastolic velocities. Mixture of mild calcified and noncalcified plaque in the bifurcations. Antegrade vertebral arteries. CONCLUSIONS Bilateral ICA stenosis less than 50%. Mild atherosclerosis. Dr. Suly Noel DO (Electronically Signed) Final Date: 25 Oct 2020 14:05 S
--- NOTE | 2020-10-25 11:02 | USCV_ITS ---
Sara Ortiz Age: 85 Gender: F : 1935 Exam Date: 10/25/2020 13:16 Ordering Phys: Lane Davis MD Technologist: [place] [facility] [place] bed stasis HISTORY: Edema. PROCEDURES: The venous duplex Doppler examination of both lower extremities was performed in the standard fashion. The following venous structures were evaluated: common femoral vein, profunda vein, proximal portion of the greater saphenous vein, superficial femoral vein, and the popliteal vein. In addition, the posterior tibial and peroneal trunk were evaluated. Bilaterally, the common femoral, superficial femoral, profunda femoral, popliteal, posterior tibial, greater saphenous veins, and the peroneal trunk were identified and interrogated in the standard fashion. These veins were found to be easily compressible with spontaneous blood flow. No evidence of insufficiency or thrombus noted. FINDINGS: Normal 2-D Doppler and augmentation and compressibility throughout the lower extremity venous structures. Additional imaging through the proximal calf veins also reveals no thrombus. Limited evaluation of the greater saphenous vein is patent with no thrombus. CONCLUSIONS No DVT bilateral lower extremities. Dr. Suly Noel DO (Electronically Signed) Final Date: 25 Oct 2020 14:03 S
--- NOTE | 2020-10-25 11:02 | USCV_ITS ---
Sara Ortiz Age: 85 Gender: F : 1935 Exam Date: 10/25/2020 12:51 Ordering Phys: Lane Davis MD Technologist: Dayton Gerber Exam Location: [facility] [place] Indication: SYNCOPE BP: 132 / 75 HR: 78 Rhythm: Sinus Technical Quality: Adequate MEASUREMENTS (Male / Female) Normal Values 2D ECHO LV Diastolic Diameter PLAX 3.7 cm 4.2 - 5.9 / 3.9 - 5.3 cm LV Systolic Diameter PLAX 2.3 cm IVS Diastolic Thickness 0.7 cm 0.6 - 1.0 / 0.6 - 0.9 cm IVS Systolic Thickness 1.1 cm LVPW Diastolic Thickness 0.8 cm 0.6 - 1.0 / 0.6 - 0.9 cm LVPW Systolic Thickness 1.2 cm LVOT Diameter 2.0 cm LV Ejection Fraction 2D Teich 69.7 % LV Ejection Fraction MOD 2C 84.9 % LV Ejection Fraction 2C AL 85.4 % LA Diameter 2.2 cm LA Width 3.5 cm LA Height 5.0 cm RA Width 3.2 cm RA Height 5.4 cm M-MODE LV Diastolic Diameter MM 4.4 cm 4.2 - 5.9 / 3.9 - 5.3 cm LV Systolic Diameter MM 2.4 cm LV Ejection Fraction MM Teich 76.4 % IVS Diastolic Thickness MM 0.9 cm 0.6 - 1.0 / 0.6 - 0.9 cm IVS Systolic Thickness MM 1.4 cm LVPW Diastolic Thickness MM 1.0 cm 0.6 - 1.0 / 0.6 - 0.9 cm LVPW Systolic Thickness MM 1.9 cm RV Diastolic Diameter MM 1.1 cm Aortic Annulus Diameter 2.8 cm LA Ao Ratio MM 0.8 MV E Point Septal Separation 0.7 cm DOPPLER AV Peak Velocity 278.8 cm/s LVOT Peak Velocity 115.0 cm/s AV Area Cont Eq vti 1.6 cm squared AV Area Cont Eq pk 1.3 cm squared MV Area PHT 5.0 cm squared Mitral E to A Ratio 0.8 MV E' Velocity 48.0 cm/s Mitral E to MV E' Ratio 9.6 Mitral E to LV E' Lateral Ratio 9.3 Mitral E to LV E' Septal Ratio 10.1 TR Peak Velocity 273.0 cm/s TR Peak Gradient 29.8 mmHg TV Peak E Velocity 79.0 cm/s Right Atrial Pressure 3.0 mmHg Pulmonary Artery Systolic Pressu 32.8 mmHg PV Peak Velocity 98.0 cm/s FINDINGS Left Ventricle Normal left ventricular size and systolic function, EF 81 %. Mild left ventricular hypertrophy. Grade I/IV diastolic dysfunction (abnormal relaxation filling pattern), normal to mildly elevated filling pressures. Right Ventricle The right ventricle is normal in size and function. Right Atrium The right atrium is normal in size. Left Atrium The left atrium is normal in size. Mitral Valve Thickened mitral valve. Mild mitral annular calcification. Aortic Valve Thickened aortic valve. Mild aortic valve regurgitation. Tricuspid Valve Trace tricuspid valve regurgitation. Pulmonic Valve Trace pulmonary valve regurgitation. Estimated pulmonary artery peak systolic pressure of 51 mmHg Pericardium Normal pericardium without effusion. Aorta Normal ascending aorta dimension. CONCLUSIONS Normal left ventricular size and systolic function, EF 81 %. Mild left ventricular hypertrophy. Grade I/IV diastolic dysfunction (abnormal relaxation filling pattern), normal to mildly elevated filling pressures. Thickened mitral valve. Mild mitral annular calcification. Thickened aortic valve. Mild aortic valve regurgitation. Trace tricuspid valve regurgitation. Estimated pulmonary artery peak systolic pressure of 51 mmHg. There is no pericardial effusion. There are no intracardiac masses. No previous study is available for comparison. Dr Dagmar Ladd MD FACC (Electronically Signed) Final Date: 25 Oct 2020 19:47 S
[2020-10-25 11:39] VITALS: BP 154/73; PULSE 88; RESP 17; TEMP 37.2; O2SAT 96
--- NOTE | 2020-10-25 12:32 | PM.PN ---
Subjective Subjective: Interval history: Patient was seen and examined this morning, says she feel very week.When I asked her about the details of the event, she says that she was in the bathroom, and then suddenly, she experienced, loss of consciousness, denied any lightheadedness, dizziness, chest pain, shortness of breath, racing of heart. She also denied any prior history of bright red blood per rectum, black stool. Medications: Reviewed: Yes Vitals/I&O/Wt Last Vital Signs Temp 98.9 F 10/25/20 11:39 Pulse 88 10/25/20 11:39 Resp 17 10/25/20 11:39 BP 154/73 10/25/20 11:39 Pulse Ox 96 10/25/20 11:39 10/24/20 10/25/20 10/25/20 22:59 06:59 14:59 Intake Total 725 / 2745 0 / 0 Output Total 1600 / 1700 1350 / 1350 Balance -875 / 1045 -1350 / -1350 Weight last 48 hrs Weight 63.049 kg Physical Exam Const: COMMON NORMALS: patient oriented x3 HENMT: COMMON NORMALS: normocephalic and atraumatic HEAD & SCALP: normocephalic and atraumatic Chest: CHEST: Yes Symmetrical chest wall rise Resp: COMMON NORMALS: normal respiratory effort and clear to auscultation bilaterally EFFORT & INSPECTION: Yes symmetric chest movement AUSCULTATION: clear to auscultation bilaterally Cardio: COMMON NORMALS: regular rate, regular rhythm, S1 normal heart sound present, S2 normal heart sound present, No gallops present (Cardio), No murmurs present (Cardio), No rub (Cardio) and Peripheral pulses 2+ throughout RATE: regular rate RHYTHM: regular rhythm HEART SOUNDS: S1 normal heart sound present and S2 normal heart sound present PERIPHERAL PULSES: Peripheral pulses 2+ throughout GI: COMMON NORMALS: Normal to inspection, nondistended, normoactive bowel sounds present, Soft to palpation, non-tender, No hepatosplenomegaly present and no masses AUSCULTATION: Yes normoactive bowel sounds PALPATION: Yes Soft to palpation and Yes No hepatosplenomegaly present RECTAL EXAM: deferred Extremity: COMMON NORMALS: no clubbing, cyanosis or edema and no pedal edema Neuro: COMMON NORMALS: patient oriented x3 Urinary Catheter Management^: Garvey: Cath Placed During This Visit: yes Reason for Continuing Indwelling Catheter: Acute Urinary Retention or Obstruction Urinary Catheter Date of Insertion: 10/23/20 Urinary Catheter Time of Insertion: 09:50 Data : 10/25/20 04:49 10/25/20 04:49 Micro: Microbiology 10/23/20 09:50 Urine Culture - Final Urine,Clean Catch Pseudomonas aeruginosa A&P Assessment and plan (1) Lower gastrointestinal hemorrhage: Status post upper and lower endoscopy today which showed evidence of gastritis which may be related to steroid use, rectal polyp, diverticular bleeding, no active bleeding encountered Hemoglobin drifting down to 8.3, however patient is currently hemodynamically stable. 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 for any worsening, currently appears to be stable, does not impact patient's vision CT head without intracranial bleeding Status: Acute Qualifiers: Encounter type: initial encounter Qualified Code(s): S00.83XA - Contusion of other part of head, initial encounter (4) Hypertension: Systolic blood pressure noted to be up to 170 systolic, start amlodipine 10 mg daily now monitor blood pressure closely Status: Acute Qualifiers: Hypertension type: essential hypertension Qualified Code(s): I10 - Essential (primary) hypertension (5) Syncope: Likely as a result of volume loss from GI bleed, no recurrent episodes during course of admission, no events on telemetry. Patient denies any prior history of bright red blood per rectum, dark stool, hematuria. CT head without intracranial bleeding CT angio chest: No PE. Linear 12 mm nodule in the RIGHT middle lobe. Recommend follow-up CT evaluation in 3 months. CV venous duplex LE BI: No DVT CV carotid duplex BI: Bilateral ICA stenosis less than 50%. 2D echo: Possible event monitor as an outpatient: Status: Acute Qualifiers: Syncope type: unspecified Qualified Code(s): R55 - Syncope and collapse Additional A&P Information DVT prophylaxis contraindicated due to GI bleeding, SCDs only Full code Transfer out of ICU to [facility] today Attestations Medical Necessity Statement*: Patient needs to be in hospital for the management of Syncope,G/I Bleed. 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
[2020-10-25] MEDS: iodixanol 320 mg/mL 100mL Btl IV (12:35)
[2020-10-25 15:55] VITALS: BP 138/73; PULSE 81; RESP 18; TEMP 36.9; O2SAT 96
[2020-10-25 19:34] VITALS: BP 134/76; PULSE 80; RESP 17; TEMP 37.1; O2SAT 98
[2020-10-26] VITALS (7 sets, daily range): BP systolic 118–144; BP diastolic 64–78; PULSE 68–88; RESP 17–18; TEMP 36.8–37.1; O2SAT 93–95
[2020-10-26] MEDS: sodium chloride 0.9% 1,000 ML 50 ML IV (03:38)
[2020-10-26] MEDS: levothyroxine 88 mcg Tablet PO (05:23)
[2020-10-26] MEDS: predniSONE 5 mg Tablet PO (05:23)
[2020-10-26] MEDS: fluoxetine 20 mg Capsule PO (05:23)
[2020-10-26 06:18] LABS: Basophils % 0.5 %; Eosinophils # 0.3 10^3/uL (0.0-0.8); Eosinophils % 3.6 %; Hematocrit 25.4 % (37.0-47.0); Hemoglobin 8.2 g/dL (11.5-15.3); Lymphocytes % 25.3 %; Mean Corpuscular HGB Conc 32.3 g/dL (30.0-36.0); Mean Corpuscular Hemoglobin 29.8 pg (28.0-34.0); Mean Corpuscular Volume 92.4 fL (81-99); Mean Platelet Volume 11.5 fL (7.4-10.4); Monocytes # 0.7 10^3/uL (0.2-0.9); Monocytes % 8.4 %; Neutrophils # 4.85 10^3/uL (1.8-7.7); Neutrophils % 61.8 %; Nucleated Red Blood Cells % 0 %; Platelet Count 143 10^3/cmm (130-400); Red Blood Count 2.75 10^6/uL (4.1-5.3); Red Cell Distribution Width 14.6 % (12.1-15.1); White Blood Count 7.8 10^3/uL (4.0-10.0)
[2020-10-26 06:37] LABS: Anion Gap 7.4 (5-19); Blood Urea Nitrogen 15 mg/dL (8-23); Calcium 7.7 mg/dL (8.5-10.5); Carbon Dioxide 29 mmol/L (22-29); Chloride 106 mmol/L (98-107); Glucose 102 mg/dL (65-115); Osmolality Calculated 289 mOsm/kg (285-295); Potassium 3.4 mmol/L (3.5-5.1); Sodium 139 mmol/L (136-145)
[2020-10-26] MEDS: pantoprazole DR 40 mg Tablet PO (08:02)
[2020-10-26] MEDS: amlodipine 10 mg Tablet PO (08:02)
--- NOTE | 2020-10-26 09:13 | PC.NURSE ---
Removed condon. Patient eating and drinking ok. Can get up with one assist and walker to bathroom. Will monitor for urine output after condon removal.
--- NOTE | 2020-10-26 09:20 | DCPLANNER ---
Pg 2 of IM updated and reviewed with pt. No questions. Copy provided.
--- NOTE | 2020-10-26 12:09 | PM.DCS ---
Discharge Providers Date of Admission: 10/23/20 12:50 Date of Discharge: October 26, 2020 Attending Provider at Admission: Rupa Kim MD Attending Provider at Discharge: Lane Davis MD Primary Care Provider: Jesús Garcia MD Diagnoses at Discharge Discharge Diagnosis (1) Lower gastrointestinal hemorrhage: Status: Resolved (2) Anemia: Status: Chronic Qualifiers: Anemia type: other cause Other causes of anemia: acute posthemorrhagic Qualified Code(s): D62 - Acute posthemorrhagic anemia (3) Facial hematoma: Status: Acute Qualifiers: Encounter type: initial encounter Qualified Code(s): S00.83XA - Contusion of other part of head, initial encounter (4) Hypertension: Status: Chronic Qualifiers: Hypertension type: essential hypertension Qualified Code(s): I10 - Essential (primary) hypertension (5) Syncope: Status: Acute Qualifiers: Syncope type: unspecified Qualified Code(s): R55 - Syncope and collapse Reason for Visit Reason for Visit: GI BLEED; NECK/HEAD/WRIST PAIN S/P FALL Hospital Course Hospital Course 85 year old female with a past medical history of COVID PNA as well as Hypothyroidism as well as Dementia ,was in her normal state of health until the morning of admission day when she woke up to go to the bathroom and fell there.She does not remember if she passed out.When she woke up she realized she was in a pool of blood mixed with dark-colored stools.She also suffered injury to the face, has a hematoma on the left side of her temporal region.She was admitted for the management of syncope.G.I Bleed was thought to be culprit resulting in Getting EGD as well as Colonscopy. EGD Showed gastritis which may be related to steroid use, rectal polyp, diverticular bleeding, no active bleeding encountered.Her H/H remained stable throughout the hospital stay. No PRBC Transfusion was done.She was kept on protonix.Steroid tapering is being done by PCP.She is on Steroid therapy for Arthritis. She was also extensively worked up for possible other causes of syncope.CT head without intracranial bleeding CT angio chest: No PE. Linear 12 mm nodule in the RIGHT middle lobe. Recommend follow-up CT evaluation in 3 months.CV venous duplex LE BI: No DVT. CV carotid duplex BI: Bilateral ICA stenosis less than 50%. 2D Echo : Normal left ventricular size and systolic function, EF 81 %. Mild left ventricular hypertrophy. Grade I/IV diastolic dysfunction (abnormal relaxation filling pattern), normal to mildly elevated filling pressures. Thickened mitral valve. Mild mitral annular calcification. Thickened aortic valve. Mild aortic valve regurgitation. Trace tricuspid valve regurgitation. Estimated pulmonary artery peak systolic pressure of 51 mmHg. There is no pericardial effusion. There are no intracardiac masses.Telemetry review has failed to show any abnormal arrhythmia.She had no fresh episode of syncope during the hospital stay.Patient is being discharged on 2 week Event monitor placement. Patient responded well to the above medical management and is being discharged in stable condition.She will follow Cardiology as well as PCP as outpatient. Physical Exam Const: COMMON NORMALS: patient oriented x3 HENMT: COMMON NORMALS: normocephalic and atraumatic HEAD & SCALP: normocephalic and atraumatic Chest: CHEST: Yes Symmetrical chest wall rise Resp: COMMON NORMALS: normal respiratory effort and clear to auscultation bilaterally EFFORT & INSPECTION: Yes symmetric chest movement AUSCULTATION: clear to auscultation bilaterally Cardio: COMMON NORMALS: regular rate, regular rhythm, S1 normal heart sound present, S2 normal heart sound present, No gallops present (Cardio), No murmurs present (Cardio), No rub (Cardio) and Peripheral pulses 2+ throughout RATE: regular rate RHYTHM: regular rhythm HEART SOUNDS: S1 normal heart sound present and S2 normal heart sound present PERIPHERAL PULSES: Peripheral pulses 2+ throughout GI: COMMON NORMALS: Normal to inspection, nondistended, normoactive bowel sounds present, Soft to palpation, non-tender, No hepatosplenomegaly present and no masses AUSCULTATION: Yes normoactive bowel sounds PALPATION: Yes Soft to palpation and Yes No hepatosplenomegaly present RECTAL EXAM: deferred Extremity: COMMON NORMALS: no clubbing, cyanosis or edema and no pedal edema Neuro: COMMON NORMALS: patient oriented x3 Urinary Catheter Management^: Garvey: Cath Placed During This Visit: yes, but has since been removed by the nurse Reason for Continuing Indwelling Catheter: Decision to DC Catheter Urinary Catheter Date of Insertion: 10/23/20 Urinary Catheter Time of Insertion: 09:50 Date Urinary Catheter Removed: 10/26/20 Time Urinary Catheter Discontinued: 08:04 Discharge Data Data Completed and Pending: Completed Studies During Hospitalization Category Date Time Status CT abdomen pelvis w con* [id number] Urge nt Cat Scan 10/23/20 09:[address] angio chest PE protcl [id number] Rout ine Cat Scan 10/25/20 11:[address] cervical spin wo con* [id number] Urge nt Cat Scan 10/23/20 09:[address] facial bones w o con* [id number] Urgen t Cat Scan 10/23/20 09:[address] head wo con* 7 0450 Urgent Cat Scan 10/23/20 09:34 Completed XR chest 1V taisha ble [id number] Urgent Exams 10/23/20 09:34 Completed CV carotid duplex BI* [id number] Routine Ultrasound 10/25/20 11:02 Completed CV echo complete* [id number] Routine Ultrasound 10/25/20 11:02 [place] [id number] Routin e Ultrasound 10/25/20 11:02 Completed Pending at discharge Category Date Time Status CA cardiac event monitor Routine Exams 10/26/20 09:30 Ordered ES surgery / GI i mages Routine Exams 10/24/20 07:22 Ordered Basic Metabolic P iwona AM LABS Lab 10/27/20 04:00 Ordered Complete Blood Co unt w/Auto AM LABS Lab 10/27/20 04:00 Ordered Leukocyte Reduced RBC Stat Lab 10/23/20 09:43 Results Type and Screen S tat Lab 10/23/20 09:43 Results Pathology: Surgic al [PTH] Routine Pth 10/24/20 08:35 Received Labs from last 24 hours 10/26/20 10/26/20 05:32 05:32 WBC 7.8 RBC 2.75 L Hgb 8.2 L Hct 25.4 L MCV 92.4 MCH 29.8 MCHC 32.3 RDW 14.6 Plt Count 143 MPV 11.5 H Neut % (Auto) 61.8 Lymph % (Auto) 25.3 [place] % (Auto) 8.4 Eos % (Auto) 3.6 Baso % (Auto) 0.5 Neut # (Auto) 4.85 Lymph # (Auto) 2.0 [place] # (Auto) 0.7 Eos # (Auto) 0.3 Baso # (Auto) 0.0 Nucleated RBC % (a uto) 0 Nucleated RBCs # 0.0 Sodium 139 Potassium 3.4 L Chloride 106 Carbon Dioxide 29 Anion Gap 7.4 BUN 15 Creatinine 1.0 H GFR Calculation Not Reportable Glucose 102 Calculated Osmolal ity 289 Calcium 7.7 L Vitals: Last Vital Signs Temp 98.8 F 10/26/20 11:54 Pulse 70 10/26/20 11:54 Resp 18 10/26/20 11:54 BP 118/69 10/26/20 11:54 Pulse Ox 93 10/26/20 11:54 Discharge Plan Discharge Patient Disposition: Home Condition: Stable Prescriptions: New Protonix 40 mg tablet,delayed release (DR/EC) 40 mg PO DAILY Qty: 30 RF: 3 Continued levothyroxine 88 mcg Tablet 88 mcg PO QAM RF: 0 aspirin 81 mg Tablet,Delayed Release (Dr/Ec) 81 mg PO QAM RF: 0 prednisone 2.5 mg tablet 5 mg PO QAM RF: 0 vitamin B complex Tablet 1 tab PO BID RF: 0 fluoxetine 20 mg capsule 20 mg PO QAM RF: 0 Discharge Orders: Discharge Order (Routine); Ordered 10/26/20 Ordered By: Lane Davis Other Ambulatory Orders: DME: Stephen (Order) Location: None Selected Ordered By: Lane Davis Referrals: [facility] [Outside] Ivonne Estrada MD [Physician] - 11/09/20 9:45 am Jesús Garcia MD [Primary Care Provider] - 10/27/20 9:40 am Discharge Diet: Regular Discharge Activity: Increase activity as tolerated Patient Instructions: Pantoprazole (By mouth), GI Discharge Instructions, Opioid Safety Activity Restrictions/Additional Instructions: APPOINTMENT FOR C A CARDIAC EVENT MONITOR [facility] ON SundayOCTOBER 28 AT 1;00 pm Discharge Attestations Time Spent in Discharge Care*: less than 30 min Specific Discharge Activities: educating patient, educating and/or supporting family/caregiver, discussing with pcp/other providers, discussing with rehabilitation case coordinator/social workers/dc planners, documenting/other paperwork and evaluating patient/reviewing data Status at Discharge: Cognitive status at discharge: cognitively intact, Behavioral status at discharge: cooperative, Functional status at discharge: independent ambulation Overall status at discharge: patient is back to baseline Quality Metrics Clinical Quality Measures During this hospital stay, did patient experience: None Coding Level of Care Code Acute Chg FW DC note Exam Detailed Diagnoses Lower gastrointestinal hemorrhage K92.2 Anemia D62 Anemia type: other cause Other causes of anemia: acute posthemorrhagic Facial hematoma S00.83XA Encounter type: initial encounter Hypertension I10 Hypertension type: essential hypertension Syncope R55 Syncope type: unspecified
--- NOTE | 2020-10-26 13:32 | PC.NURSE ---
Discharge instructions discussed with patient, , and daughter. Appointments, medications and Home Health referral discussed. IV discontinued. Patient wheeled out to private vehicle.
== END 2020-10-26 13:30 | disposition home health service (06) | DRG 378 ==
LOC: ER 12:43 → ICU 14:27 → MEDSURG 10-24 14:05
PROVIDERS: Emergency Medicine; Surgery; Admitting Provider Student in an Organized Health Care Education/Training Program; Emergency Provider Physician Assistant; PCP Family Medicine; Visit Provider Internal Medicine
PROC: 0DJD8ZZ Inspection of Lower Intestinal Tract, Via Natural or Artificial Opening Endoscopic (ICD-10-PCS; CPT 45378; principal; 2020-10-24 08:00)
PROC: 0DJ08ZZ Inspection of Upper Intestinal Tract, Via Natural or Artificial Opening Endoscopic (ICD-10-PCS; CPT 43235; 2020-10-24 08:00)
DX: K57.31 Diverticulosis of large intestine without perforation or abscess with bleeding (principal); D62 Acute posthemorrhagic anemia; S00.83XA Contusion of other part of head, initial encounter; W18.30XA Fall on same level, unspecified, initial encounter; Z86.16 Personal history of COVID-19; E03.9 Hypothyroidism, unspecified; F03.90 Unspecified dementia, unspecified severity, without behavioral disturbance, psychotic disturbance, mood disturbance, and anxiety; R55 Syncope and collapse; K29.70 Gastritis, unspecified, without bleeding; K29.80 Duodenitis without bleeding; K62.1 Rectal polyp; I10 Essential (primary) hypertension; R91.8 Other nonspecific abnormal finding of lung field; Z79.82 Long term (current) use of aspirin
CPT/HCPCS: 36415; 36430; 43239; 45385; 51702; 70450; 70486; 71045; 71275; 72125; 74177; 80048; 80053; 81001; 83605; 84484; 85014; 85018; 85025; 85610; 85730; 86850; 86900; 86920; 87077; 87086; 87186; 88305; 93005; 93271; 93306; 93880; 93970; 96365; 96375; 97116; 97162; 97166; 97530; 97535; 99285; 99291; C9113; J0696; J2704; J7030; J7512; P9016; Q9967

== ENCOUNTER 2020-12-27 11:33 | Outpatient (CLI) | payer MEDICARE, SELFPAY ==
--- NOTE | 2020-12-27 12:07 | CT_ITS ---
WS: [id number] [address] CT CHEST WITHOUT INTRAVENOUS CONTRAST HISTORY: Follow-up lung nodule. TECHNIQUE: Contiguous 5 mm axial imaging performed on the thorax. Coronal and sagittal reformats are submitted. All CT scans at [facility] use at least one of these dose optimization techniq ues: automated exposure control; mA and/or kV adjustment per patient size (includes targeted exams wh ere dose is matched to clinical indication); or iterative reconstruction. CONTRAST: None DLP: 508.04 mGy-cm. COMPARISON: 10/25/2020 Lungs and central airway: Significant decrease in size of the linear ovoid nodule described within th e RIGHT middle lobe on 10/25/2020. Nodule has nearly completely resolved and now measures approximatel y 6 mm. No additional suspicious masses or nodules. No pneumonia. Pleura: Normal. No pleural effusion. Heart and pericardium: Moderately enlarged heart. Mild pericardial thickening. Mediastinum and kris: No mediastinum or hilar adenopathy. Vessels: Mild ectasia and atherosclerosis aorta. Normal size pulmonary artery. Chest wall and lower neck: Prior RIGHT lizett dissection. Upper abdomen: No abnormality in the liver on this unenhanced study. Normal-sized adrenal glands. Sup rarenal aortic calcifications. Osseous structures: No destructive process. CT/CT chest wo con [id number] IMPRESSION: 1. Near complete resolution of the previously described nodule in the RIGHT mi ddle lobe. Nodule has decreased in size now measuring 6 mm. 2. No pneumonia. 3. Chronic emphysema. 4. Moderate cardiomegaly.
== END 2020-12-27 11:34 | disposition home or self-care (01) ==
PROVIDERS: PCP Family Medicine; Visit Provider Family Medicine
DX: R91.1 Solitary pulmonary nodule (principal); I51.7 Cardiomegaly; J43.9 Emphysema, unspecified
CPT/HCPCS: 71250

== ENCOUNTER 2021-04-19 18:20 | Emergency (ER) | payer MEDICARE, SELFPAY ==
--- NOTE | 2021-04-19 18:21 | XRR_ITS ---
PROCEDURE INFORMATION: Exam: XR Left Elbow Exam date and time: 04/19/2021 6:21 PM Age: 85 years old Clinical indication: Injury or trauma; Fall; Crushing; Elbow; Left TECHNIQUE: Imaging protocol: XR Left elbow. Views: 3 or more views. COMPARISON: No relevant prior studies available. FINDINGS: Bones/joints: Comminuted displaced intercondylar fracture of the distal left humerus. The proximal radius and ulna appear intact. Soft tissues: Normal. XR/XR elbow LT min 3V* [id number] IMPRESSION: 1. Comminuted displaced intercondylar left humerus fracture. Radiation Dose CTDIVOL = (mGy): DLP = (mGy-cm)
[2021-04-19 18:22] VITALS: BP 177/92; PULSE 78; RESP 18; TEMP 36.7; O2SAT 95; BMI 21.6
--- NOTE | 2021-04-19 18:25 | ED_ITS ---
HPI - Fall General: Chief Complaint: Fall Stated Complaint: FALL/ L ELBOW DEFORMITY Time Seen by Provider: 04/19/21 18:20 Source: patient and EMS Mode of arrival: EMS Limitations: no limitations History of Present Illness: HPI Narrative: 85-year-old female states that she had a fall today at home just prior to arrival she fell on her left arm has obvious deformity to her left elbow with pain in her left elbow she denies any pain elsewhere denies any head denies neck pain denies any loss conscious. Associated symptoms-after fall: Denies abdominal pain, chest pain or headache(s) Review of Systems Const: Denies: fever(s), chills, body aches or change in appetite Eyes: Denies: blurry vision or eye discomfort ENMT: Denies: throat pain or dental pain Card: Denies: chest pain Resp: Denies: dyspnea GI: Denies: abdominal pain, nausea, vomiting or diarrhea : Denies: dysuria Musc: Reports: extremity pain Skin/Breast: Denies: rash Neuro: Denies: headache(s) Psych: Denies: depression Osorio/Lymph: Denies: easy bruising All/Imm: Denies: urticaria PFSH ED PFSH: Medical History Anemia COVID-06 march 2020 Facial hematoma Hypertension Hypothyroidism (acquired) Lower gastrointestinal hemorrhage Syncope Social History Smoking and tobacco status: never smoked Physical Exam Const: COMMON NORMALS: no acute distress, patient oriented x3 and healthy appearing HENMT: COMMON NORMALS: normocephalic and atraumatic HEAD & SCALP: normocephalic and atraumatic Eye: COMMON NORMALS: Equal, round and reactive pupils present and EOMs intact bilaterally PUPIL: Yes Equal, round and reactive pupils present Neck/C-Spine: COMMON NORMALS: full ROM and supple Chest: COMMONS NORMALS: normal inspection of the chest and normal palpation of entire chest wall Resp: COMMON NORMALS: normal respiratory effort, No retractions, No use of accessory muscles and clear to auscultation bilaterally AUSCULTATION: clear to auscultation bilaterally Cardio: COMMON NORMALS: regular rate, regular rhythm and No murmurs present (Cardio) RATE: regular rate RHYTHM: regular rhythm GI: COMMON NORMALS: Normal to inspection, nondistended, normoactive bowel sounds present, Soft to palpation, non-tender and no masses PALPATION: Yes Soft to palpation Extremity: NARRATIVE EXTREMITY EXAM: Tenderness to left elbow with obvious deformity distal pulses and sensation are intact Neuro: COMMON NORMALS: patient oriented x3, moves all extremities and no focal motor deficits Psych: COMMON NORMALS: mental status grossly normal, Normal thought process present and cooperative THOUGHT PROCESS: Normal thought process present Skin: COMMON NORMALS: no rashes or lesions noted and no wounds GENERAL SKIN EXAM: no rashes or lesions noted Course Vital Signs: Vital signs: Vital Signs Temperature 98.1 F 04/19/21 18:22 Pulse Rate 78 04/19/21 21:23 Respiratory Rate 18 04/19/21 21:23 Blood Pressure 182/90 04/19/21 21:23 Pulse Oximetry 98 04/19/21 21:23 MDM - Fall MDM Narrative: Medical decision making narrative: Patient presents here with elbow fracture from a fall spoke to Dr. Rubin will place patient in a splint and sling and have her follow-up with him on she is return if worsening she had no other injuries no signs of head or neck injury. Imaging Data^: Xray Ortho: Attestation: I personally reviewed and interpreted this imaging study as follows: Radiologist's impression: [address] [address] XRay Report Signed Patient: Sara Ortiz Unit #: [id number] : 1935 Age/Sex: 85 / F ADM Date: 08/08 Loc: ER Room/Bed: Attending Dr: Ordering Provider/Ordering MD: Laurie Lewis MD Date of Service: 04/19/21 Procedure(s): XR elbow LT min 3V* [id number] Accession Number(s): [id number] Report Number: [id number] PROCEDURE INFORMATION: Exam: XR Left Elbow Exam date and time: 04/19/2021 6:21 PM Age: 85 years old Clinical indication: Injury or trauma; Fall; Crushing; Elbow; Left TECHNIQUE: Imaging protocol: XR Left elbow. Views: 3 or more views. COMPARISON: No relevant prior studies available. FINDINGS: Bones/joints: Comminuted displaced intercondylar fracture of the distal left humerus. The proximal radius and ulna appear intact. Soft tissues: Normal. XR/XR elbow LT min 3V* [id number] IMPRESSION: 1. Comminuted displaced intercondylar left humerus fracture. Radiation Dose CTDIVOL = (mGy): DLP = (mGy-cm) Dictated By: Julio Willis Signed By: Julio Willis Signed Date/Time: 04/19/21 0773 Discharge Plan Discharge Patient Disposition: Home Clinical Impression: Fracture, humerus Qualifiers: Encounter type: initial encounter Humerus Location: distal Fracture type: closed Fracture alignment: displaced Laterality: left Condition: Stable Prescriptions: New hydrocodone-acetaminophen 5-325 mg tablet 1 tab PO Q6H PRN (Reason: pain) Qty: 14 RF: 0 No Action levothyroxine 88 mcg Tablet 88 mcg PO QAM RF: 0 aspirin 81 mg Tablet,Delayed Release (Dr/Ec) 81 mg PO QAM RF: 0 prednisone 2.5 mg tablet 5 mg PO QAM RF: 0 vitamin B complex Tablet 1 tab PO BID RF: 0 fluoxetine 20 mg capsule 20 mg PO QAM RF: 0 Protonix 40 mg tablet,delayed release (DR/EC) 40 mg PO DAILY Qty: 30 RF: 3 Discharge Orders: Discharge ED (Routine); Ordered 04/19/21 Ordered By: Laurie Lewis Referrals: Ryan Rubin DO [Physician] - 1-3 days Jesús Garcia MD [Primary Care Provider] - Discharge Diet: Advance as tolerated Discharge Activity: Resume usual activity Patient Instructions: Elbow Fracture (ED) Coding Level of Care Code ED Optical Laboratory Manager for Bhargavig 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
[2021-04-19 18:52] VITALS: BP 194/85; PULSE 68; RESP 12; O2SAT 91
[2021-04-19 18:54] VITALS: RESP 12; O2SAT 95
[2021-04-19] MEDS: morphine 4 mg/mL SDV 1 mL IVP (18:54)
--- NOTE | 2021-04-19 18:58 | PC.NURSE ---
REPORT GIVEN TO KATY ARIAS ASSUMED CARE.
--- NOTE | 2021-04-19 19:03 | PC.NURSE ---
WHILE AT BEDSIDE PT IS IN NAD. PT DOES NOT VERBALIZE ANY NEEDS AT THIS TIME.
[2021-04-19 20:08] VITALS: BP 195/85; PULSE 71; RESP 18; O2SAT 99
[2021-04-19] MEDS: HYDROcodone-acetaminophen 5-325 mg Tablet 1 TAB PO (20:11)
[2021-04-19] MEDS: HYDROcodone-acetaminophen 5-325 mg Tablet 2 TAB PO (21:20)
[2021-04-19 21:23] VITALS: BP 182/90; PULSE 78; RESP 18; O2SAT 98
== END 2021-04-19 21:25 | disposition home or self-care (01) ==
PROVIDERS: Emergency Provider Emergency Medicine; PCP Family Medicine
DX: S42.402A Unspecified fracture of lower end of left humerus, initial encounter for closed fracture (principal); W19.XXXA Unspecified fall, initial encounter; Y92.019 Unspecified place in single-family (private) house as the place of occurrence of the external cause; Z79.82 Long term (current) use of aspirin
CPT/HCPCS: 73080; 96374; 99284; J2270

== ENCOUNTER 2021-04-20 14:42 | Inpatient (IN) | payer MEDICARE, SELFPAY ==
[2021-04-20 14:55] VITALS: PULSE 92; RESP 20
[2021-04-20 14:56] VITALS: BP 195/97; PULSE 90; RESP 19; TEMP 37.3; O2SAT 97; BMI 22.3
--- NOTE | 2021-04-20 14:59 | CTR_ITS ---
PROCEDURE INFORMATION: Exam: CT Head Without Contrast Exam date and time: 04/20/2021 2:59 PM Age: 85 years old Clinical indication: Altered mental status/memory loss. TECHNIQUE: Imaging protocol: Computed tomography of the head without contrast. Radiation optimization: All CT scans at this facility use at least one of these dose optimization techniques: automated exposure control; mA and/or kV adjustment per patient size (includes targeted exams where dose is matched to clinical indication); or iterative reconstruction. COMPARISON: CT head wo con* [id number] 10/23/2020 10:59 AM RADIATION DOSE METRICS: Total DLP (mGy-cm): 1654.01 FINDINGS: Brain: No acute intracranial hemorrhage. There is a new lacunar infarct in the right basal ganglia that could be acute. No mass, mass effect or midline shift.. There is no evidence of acute large vessel infarct.. There is moderate patchy subcortical and periventricular hypodensity, most commonly associated with small vessel ischemic disease of indeterminate age. The posterior fossa is grossly unremarkable; however, it is partially obscurred by beam hardening artifact. Cerebral ventricles: The ventricles are prominent, compatible with mild parenchymal volume loss. Paranasal sinuses: The visualized paranasal sinuses are clear. Mastoid air cells: No mastoid effusion. Orbital cavity: The visualized orbits are unremarkable. Bones/joints: No acute fracture is seen. CT/CT head wo con* [id number] IMPRESSION: 1. New lacunar infarct in the right basal ganglia that could be acute. Consider MRI to further assess if clinically warranted. 2. Cdcz-kr-ksyoavnv senescent changes as above. 3. No acute intracranial hemorrhage. Radiation Dose CTDIVOL = (mGy): DLP = 1654.01 (mGy-cm)
--- NOTE | 2021-04-20 14:59 | CTR_ITS ---
PROCEDURE INFORMATION: Exam: CT Cervical Spine Without Contrast Exam date and time: 04/20/2021 2:59 PM Age: 85 years old Clinical indication: Fall with blunt trauma. Altered mental status. TECHNIQUE: Imaging protocol: Computed tomography images of the cervical spine without contrast. Radiation optimization: All CT scans at this facility use at least one of these dose optimization techniques: automated exposure control; mA and/or kV adjustment per patient size (includes targeted exams where dose is matched to clinical indication); or iterative reconstruction. COMPARISON: CT cervical spin wo con* [id number] 10/23/2020 11:03 AM RADIATION DOSE METRICS: Total DLP (mGy-cm): 496.03 FINDINGS: Grade 1 anterolistheses of C4 and C7. No prevertebral soft tissue swelling is seen. [id number] degenerative disc disease is noted in the cervical spine. No acute fracture is identified. The atlantoaxial interval and craniocervical junction are maintained. Small, scattered cervical lymph nodes are noted. Mild scarring in the lung apices. There is wispy hemorrhage in the left supraclavicular region. CT/CT cervical spin wo con* [id number] IMPRESSION: 1. No acute cervical fracture. 2. Wispy hemorrhage in the left supraclavicular region. Consider CT of the chest to further assess. Radiation Dose CTDIVOL = (mGy): DLP = 496.03 (mGy-cm)
--- NOTE | 2021-04-20 14:59 | XR_ITS ---
WS: [id number] Portable AP upright chest, 04/20/2021 Clinical Data: AMS Comparison: Portable chest, 10/23/2020. Findings: No nodules, masses or effusions are seen. The heart is normal. The pulmonary vascularity is not increased. No pneumonia or pneumothorax is seen. The aortic arch and descending thoracic aorta s hows mild tortuosity. There are monitor leads on the chest wall. There are clips in the right axilla. The patient's clothing obscures minimal detail over the central chest. XR/XR chest 1V portable [id number] Impression: Atherosclerosis.
--- NOTE | 2021-04-20 15:00 | ECG_ITS ---
[facility] Test Date: 2021-04-20 Pat Name: Sara Ortiz Department: Room: Gender: Female Alarm Signaler: : 1935 Requested By: Ray Padilla Order Number: [id number] Emilio MD: Maxime Camilo M.D. Measurements Intervals [place] Rate: 89 P: 60 W[place]: 157 QRS: 11 QRSD: 89 T: 55 QT: 357 QTc: 435 Interpretive Statements SINUS RHYTHM POSSIBLE LEFT ATRIAL ENLARGEMENT [-0.1mV P-WAVE IN V1/V2] Compared to ECG 10/23/2020 12:33:14 No significant changes Electronically Signed On 04-21-2021 17:11:49 CDT by Maxime Camilo M.D. [id number]
--- NOTE | 2021-04-20 15:01 | W.ED.AMS ---
HPI - Altered Mental Status General: Chief Complaint: Altered Mental Status Stated Complaint: Altered mental status Time Seen by Provider: 04/20/21 14:58 History of Present Illness: HPI narrative: 85-year-old female presents due to altered mental status. Yesterday she had a fall and presented emergency department where she was diagnosed with a left distal humerus fracture. Family stated her last known well was at 2 AM when she took a [employer] and went to sleep. Upon awakening she appeared confused. She denies focal pain. Denies any headache. Denies focal weakness numbness or tingling. Denies neck pain chest pain or shortness of breath. Was however noted by EMS to be saturating at 88% on room air and requires 2 L by nasal cannula to maintain saturation in the 90s. She does not recall the events leading up to her fall. Review of Systems Narrative: - CONSTITUTIONAL: Denies weight loss, fever and chills. - HEENT: Denies changes in vision and hearing. - RESPIRATORY: Denies SOB and cough. - CV: Denies palpitations and CP. - GI: Denies abdominal pain, nausea, vomiting and diarrhea. - : Denies dysuria and urinary frequency. - MSK: Denies myalgia and joint pain. - SKIN: Denies rash and pruritus. - NEUROLOGICAL: As above - PSYCHIATRIC: Denies suicidal ideation PFSH ED PFSH: Medical History (Updated 04/20/21 @ 18:47 by Justino Purcell MD) Anemia COVID-06 march 2020 Facial hematoma Hypertension Hypothyroidism (acquired) Lower gastrointestinal hemorrhage Syncope Surgical History (Updated 04/20/21 @ 18:44 by Justino Purcell MD) H/O mastectomy Family History (Updated 04/20/21 @ 18:44 by Justino Purcell MD) Father CAD (coronary artery disease) Social History (Updated 04/20/21 @ 18:44 by Justino Purcell MD) Smoking and tobacco status: never smoked Alcohol intake: never Substance/Drug Use: never Physical Exam Narrative: EXAM NARRATIVE: - GENERAL: Alert and oriented x to self and place but not time. No acute distress. Well-nourished. - EYES: EOMI. Anicteric. - HENT: Atraumatic, no C-spine tenderness. Moist mucous membranes. No scleral icterus. No cervical lymphadenopathy. - LUNGS: Clear to auscultation bilaterally. No accessory muscle use. Equal lung sounds bilaterally. No respiratory distress. - CARDIOVASCULAR: Regular rate and rhythm. No murmur. No JVD. - ABDOMEN: Soft, non-tender and non-distended. Negative CVA tenderness bilaterally, no rebound or guarding, negative Samaniego sign. No palpable masses. - EXTREMITIES: No edema. Non-tender. Distal left upper extremity in splint. - SKIN: No rashes or lesions. Warm. - NEUROLOGIC: No meningismus or focal neurological deficits. CN II-XII grossly intact. - PSYCHIATRIC: Cooperative. Appropriate mood and affect. Course Vital Signs: Vital signs: Vital Signs Temperature 99.1 F 04/20/21 14:56 Pulse Rate 90 04/20/21 14:56 Respiratory Rate 19 H 04/20/21 14:56 Blood Pressure 195/97 04/20/21 14:56 Pulse Oximetry 97 04/20/21 14:56 MDM - Altered Mental Status MDM Narrative: Medical decision making narrative: 85-year-old female presents altered mental status. Yesterday was seen after a fall and was diagnosed with left forearm fracture. Denies any focal pain today. Nonfocal neurologic exam except for mild confusion. CT scan concerning for possible lacunar infarct. Discussed with neurology who at this time does not recommend MRI. Does recommend daily aspirin. In addition CT scan also reveals scapular fracture shoulder fracture. Discussed with orthopedics. Remainder of lab work and imaging reviewed. Discussed with hospitalist and they agreed patient would benefit from admission. Patient admitted in stable condition. Further evaluation management per hospitalist team. Lab Data: Labs: Lab Results 04/20/21 04/20/21 04/20/21 15:00 15:00 15:00 WBC 9.8 10^3/uL 10^3/ uL (4.0-10.0) RBC 3.87 10^6/uL L 10 ^6/uL (4.1-5.3) Hgb 11.8 g/dL g/dL (11.5-15.3) Hct 36.8 % L % (37.0-47.0) MCV 95.1 fl fl (81-99) MCH 30.5 pg pg (28.0-34.0) MCHC 32.1 g/dL g/dL (30.0-36.0) RDW 13.7 % % (12.1-15.1) Plt Count 159 10^3/cmm 10^3 /cmm (130-400) MPV 12.2 fL H fL (7.4-10.4) Neut % (Auto) 77.4 % % Lymph % (Auto) 12.6 % % [place] % (Auto) 7.9 % % Eos % (Auto) 1.2 % % Baso % (Auto) 0.5 % % Neut # (Auto) 7.56 10^3/uL 10^3 /uL (1.8-7.7) Lymph # (Auto) 1.2 10^3/uL 10^3/ uL (0.8-4.8) [place] # (Auto) 0.8 10^3/uL 10^3/ uL (0.2-0.9) Eos # (Auto) 0.1 10^3/uL 10^3/ uL (0.0-0.8) Baso # (Auto) 0.1 10^3/uL 10^3/ uL (0.0-0.1) Nucleated RBC % (a uto) 0 % % Nucleated RBCs # 0.0 /100WBC /100W BC PT 13.60 SECONDS SEC ONDS (12.1-14.9) INR 1.01 (0.8-1.2) APTT 30.4 SECONDS SECO NDS (23.9-36.7) D-Dimer 16.43 ug/mIFEU H ug/mIFEU (0-0.59) Sodium 137 mmol/L mmol/L (136-145) Potassium 4.2 mmol/L mmol/L (3.5-5.1) Chloride 100 mmol/L mmol/L (98-107) Carbon Dioxide 27 mmol/L mmol/L (22-29) Anion Gap 14.2 (5-19) BUN 25 mg/dL H mg/dL (8-23) Creatinine 0.9 mg/dL mg/dL (0.5-0.9) GFR Calculation Not Reportable Glucose 98 mg/dL mg/dL (65-115) Calculated Osmolal ity 288 mOsm/kg mOsm/ kg (285-295) Calcium 8.9 mg/dL mg/dL (8.5-10.5) Magnesium 1.7 mg/dL mg/dL (1.7-2.3) Total Bilirubin 0.4 mg/dL mg/dL (0.15-1.2) AST 20 U/L U/L (0-32) ALT 12 U/L U/L (0-33) Alkaline Phosphata se 100 IU/L IU/L (35-105) Troponin T Baselin e Troponin T 120 Min abbie Delta Troponin T NT-Pro-B Natriuret Pep 601 pg/mL H pg/mL (0-450) Total Protein 5.9 g/dL L g/dL (6.6-8.7) Albumin 4.0 g/dL g/dL (3.5-5.2) Globulin 1.9 g/dL g/dL (1.3-4.6) TSH 0.46 uIU/mL uIU/m L (0.27-4.20) Free T4 1.39 ng/dL ng/dL (0.82-1.77) 04/20/21 04/20/21 15:00 17:12 WBC RBC Hgb Hct MCV MCH MCHC RDW Plt Count MPV Neut % (Auto) Lymph % (Auto) [place] % (Auto) Eos % (Auto) Baso % (Auto) Neut # (Auto) Lymph # (Auto) [place] # (Auto) Eos # (Auto) Baso # (Auto) Nucleated RBC % (a uto) Nucleated RBCs # PT INR APTT D-Dimer Sodium Potassium Chloride Carbon Dioxide Anion Gap BUN Creatinine GFR Calculation Glucose Calculated Osmolal ity Calcium Magnesium Total Bilirubin AST ALT Alkaline Phosphata se Troponin T Baselin e 22 ng/L H ng/L (0-10) Troponin T 120 Min abbie 20.76 ng/L H ng/L (0-10) Delta Troponin T -1.24 ABS# L ABS# (0-10) NT-Pro-B Natriuret Pep Total Protein Albumin Globulin TSH Free T4 EKG Data^: EKG 1: Other EKG comments: Sinus rhythm with rate of 89, no sign of acute ischemia or other acute abnormality. Discharge Plan Discharge Prescriptions: No Action levothyroxine 88 mcg Tablet 88 mcg PO QAM RF: 0 prednisone 2.5 mg tablet 2.5 mg PO BID RF: 0 fluoxetine 20 mg capsule 20 mg PO BID RF: 0 Vitamin B-12 1,000 mcg Tablet 1,000 mcg PO BID RF: 0 Tylenol Ex Str Rapid Release 500 mg Tablet 500 mg PO Q4H PRN (Reason: Pain) RF: 0 Protonix 40 mg tablet,delayed release (DR/EC) 40 mg PO QAM RF: 0 hydrocodone-acetaminophen 5-325 mg tablet 1 tab PO Q6H PRN (Reason: pain) Qty: 14 RF: 0 Coding Level of Care Code ED Model [employer] D[employer] Person for Rosemary Lares
[2021-04-20] MEDS: naloxone 0.4 mg/ml SDV IVP (15:09)
[2021-04-20 15:14] LABS: Basophils # 0.1 10^3/uL (0.0-0.1); Basophils % 0.5 %; Eosinophils # 0.1 10^3/uL (0.0-0.8); Eosinophils % 1.2 %; Hematocrit 36.8 % (37.0-47.0); Hemoglobin 11.8 g/dL (11.5-15.3); Lymphocytes # 1.2 10^3/uL (0.8-4.8); Lymphocytes % 12.6 %; Mean Corpuscular HGB Conc 32.1 g/dL (30.0-36.0); Mean Corpuscular Hemoglobin 30.5 pg (28.0-34.0); Mean Corpuscular Volume 95.1 fl (81-99); Mean Platelet Volume 12.2 fL (7.4-10.4); Monocytes # 0.8 10^3/uL (0.2-0.9); Monocytes % 7.9 %; Neutrophils # 7.56 10^3/uL (1.8-7.7); Neutrophils % 77.4 %; Nucleated Red Blood Cells % 0 %; Platelet Count 159 10^3/cmm (130-400); Red Blood Count 3.87 10^6/uL (4.1-5.3); Red Cell Distribution Width 13.7 % (12.1-15.1); White Blood Count 9.8 10^3/uL (4.0-10.0)
--- NOTE | 2021-04-20 15:19 | PC.NURSE ---
Cardiac monitoring initiated upon arrival into room.
[2021-04-20 15:31] LABS: INR 1.01 (0.8-1.2)
[2021-04-20 15:32] LABS: Partial Thromboplastin Time 30.4 SECONDS (23.9-36.7)
[2021-04-20 15:41] LABS: Troponin(5th) Baseline 22 ng/L (0-10)
[2021-04-20 15:46] LABS: Alanine Aminotransferase 12 U/L (0-33); Alkaline Phosphatase 100 IU/L (35-105); Anion Gap 14.2 (5-19); Aspartate Amino Transferase 20 U/L (0-32); Blood Urea Nitrogen 25 mg/dL (8-23); Calcium 8.9 mg/dL (8.5-10.5); Carbon Dioxide 27 mmol/L (22-29); Chloride 100 mmol/L (98-107); Free T4 Free Thyroxine 1.39 ng/dL (0.82-1.77); Globulin 1.9 g/dL (1.3-4.6); Glucose 98 mg/dL (65-115); Magnesium 1.7 mg/dL (1.7-2.3); NT Pro B Type Natriuretic Pept 601 pg/mL (0-450); Osmolality Calculated 288 mOsm/kg (285-295); Potassium 4.2 mmol/L (3.5-5.1); Sodium 137 mmol/L (136-145); Thyroid Stimulating Hormone 0.46 uIU/mL (0.27-4.20); Total Bilirubin 0.4 mg/dL (0.15-1.2); Total Protein 5.9 g/dL (6.6-8.7)
--- NOTE | 2021-04-20 16:06 | PC.PHAR ---
pts family brought in medication bottles-family states the pt is taking fluoxetine 20mg bid rx filled on 02/23/21 30d/s for 20mg daily-pts family states the pt takes levothyroxine 88mcg daily rx last filled on 01/27/21 90d/s ext med history shows 100mcg po daily filled on 02/16/21 90d/s-pts family states the pt is taking prednisone 2.5mg bid [facility] rx [facility] mar 2021 for 2.5mg daily last filled 01/12/21 for 2.5mg daily-notes are made in the pharmacy comments
--- NOTE | 2021-04-20 16:24 | CTR_ITS ---
PROCEDURE INFORMATION: Exam: CT Chest With Contrast; Diagnostic Exam date and time: 04/20/2021 4:24 PM Age: 85 years old Clinical indication: Fall with blunt trauma. History of breast cancer status post mastectomy. TECHNIQUE: Imaging protocol: Diagnostic computed tomography of the chest with contrast. Radiation optimization: All CT scans at this facility use at least one of these dose optimization techniques: automated exposure control; mA and/or kV adjustment per patient size (includes targeted exams where dose is matched to clinical indication); or iterative reconstruction. Contrast material: OMNI 300; Contrast volume: 95 ml; Contrast route: INTRAVENOUS (IV); COMPARISON: CT chest wo con [id number] 12/27/2020 12:24 PM RADIATION DOSE METRICS: Total DLP (mGy-cm): 1313.17 FINDINGS: Lungs: There is dependent atelectasis in the chest bilaterally. There is mild scarring or subsegmental atelectasis in the chest bilaterally. A pulmonary micronodule in the left upper lobe is unchanged and measures 2 mm (image 21). Pleural spaces: No pleural effusion.. No pneumothorax. Heart: The heart is enlarged. No pericardial effusion. Pulmonary arteries: No main or central pulmonary embolus. Aorta: No thoracic aortic aneurysm. No thoracic aortic dissection. Lymph nodes: No significant mediastinal lymphadenopathy. Diaphragm: No hiatal hernia. Bones/joints: There is a mildly displaced fracture involving the left coracoid process. Mildly displaced curvilinear fracture involving the anterior glenoid. Soft tissues: There is wispy hemorrhage in the left supraclavicular region and axilla. Status post right mastectomy. There is soft tissue swelling involving the musculature about the left shoulder likely reflecting muscular strains. IMPRESSION: 1. Mildly displaced fracture involving the left coracoid process. 2. Wispy hemorrhage in the left supraclavicular region and axilla. 3. Mildly displaced curvilinear fracture involving the anterior glenoid. 4. There is soft tissue swelling involving the musculature about the left shoulder likely reflecting muscular strains. 5. Cardiomegaly. 6. A pulmonary micronodule in the left upper lobe is unchanged and measures 2 mm. As per Fleischner Society 2017 guidelines for follow-up and management of pulmonary nodules: For patients at low risk (minimal or absent history of smoking and of other known risk factors), no routine follow-up. For patient at high risk (history of smoking or of other known risk factors), recommend optional CT at 12 months. PROCEDURE INFORMATION: Exam: CT Abdomen And Pelvis With Contrast Exam date and time: 04/20/2021 4:24 PM Age: 85 years old Clinical indication: Fall with blunt trauma. History of breast cancer status post mastectomy. TECHNIQUE: Imaging protocol: Computed tomography of the abdomen and pelvis with contrast. Radiation optimization: All CT scans at this facility use at least one of these dose optimization techniques: automated exposure control; mA and/or kV adjustment per patient size (includes targeted exams where dose is matched to clinical indication); or iterative reconstruction. Contrast material: OMNI 300; Contrast volume: 95 ml; Contrast route: INTRAVENOUS (IV); COMPARISON: CT chest wo con [id number] 12/27/2020 12:24 PM RADIATION DOSE METRICS: Total DLP (mGy-cm): 1313.17 FINDINGS: Liver: The liver is enlarged measuring 17.3 cm. Gallbladder and bile ducts: The gallbladder is unremarkable. Pancreas: The pancreas is unremarkable. Spleen: The spleen is unremarkable. Adrenal glands: The adrenal glands are unremarkable. Kidneys and ureters: Intermediate density renal lesions are seen bilaterally measuring up to 2.1 cm. There is mild prominence of the left renal collecting system. No obstructive mass or lesion is seen. Stomach and bowel: There is mild prominence of the wall of the gastric antrum that may reflect gastritis. Occasional colonic diverticula are seen without evidence of acute diverticulitis. Appendix: The appendix is unremarkable. Intraperitoneal space: No free intraperitoneal air. Vasculature: No abdominal aortic aneurysm. Lymph nodes: No retroperitoneal lymphadenopathy. Urinary bladder: The bladder is unremarkable. Reproductive: A vaginal pessary is noted. Bones/joints: No acute fracture is seen. Soft tissues: Small fat containing umbilical hernia. Subcutaneous edema lateral to the left hip suspicious for contusion. CT/CT chest abd pel w con* IMPRESSION: 1. Subcutaneous edema lateral to the left hip suspicious for contusion. 2. Possible mild gastritis; correlate clinically. 3. Occasional colonic diverticula are seen without evidence of acute diverticulitis. 4. Intermediate density renal lesions may represent complex cysts. Recommend nonemergent ultrasound to exclude solid renal lesions. 5. Mild hepatomegaly. COMMENTS: Consistent with the [place] [employer]'s Incidental Findings Committee white paper (J Am Anna Radiol 2018): Any incidental renal lesion less than 1 cm or classified as too small to characterize, or any incidental cystic renal lesion characterized as simple-appearing, is likely benign. No follow-up imaging is recommended for these lesions per consensus recommendations based on imaging criteria. Radiation Dose CTDIVOL = (mGy): DLP = 1313.17~1313.17 (mGy-cm)
[2021-04-20 16:34] LABS: D Dimer 16.43 ug/mIFEU (0-0.59)
[2021-04-20] MEDS: iohexol 300 mg/mL 100 mL Btl IV (16:41)
[2021-04-20] MEDS: fentaNYL 50 mcg/mL INJ 2mL 25 MCG IVP (17:10)
[2021-04-20 17:56] LABS: Troponin 5 2HR 20.76 ng/L (0-10)
[2021-04-20 17:58] LABS: Troponin 5 2HR Delta -1.24 ABS# (0-10)
--- NOTE | 2021-04-20 18:01 | PC.NURSE ---
Cardiac monitoring was initiated upon arrival in room
--- NOTE | 2021-04-20 18:39 | P.HP_ITS ---
Providers/Chief Complaint Primary Care Provider: Jesús Garcia MD Chief Complaint: Altered mental status History of Present Illness Sara Ortiz is a 85 year old female with a past medical history of dementia, history of gastritis, hypothyroidism, history of Covid infection, history of diverticular bleed, history of recurrent falls, history of recurrent syncope, who presents to [facility] for altered mental status and fall. Currently patient is alert to person, not to place, not to time, follows some commands, most of the history was provided by daughter at bedside, daughter tells me that patient has been having recurrent falls, she fails to use her walker, she fell on Sunday, again then on Sunday, on Sunday she was in the bathroom, when she slipped on the rug and fell, and suffered a humeral fracture, was placed in a cast, and sent home with pain medications, when she got home, she remained in bed according to family members, becoming more confused, poor appetite, not responding at times, she was having increasing pain, family gave her medications for pain, but she continued to be more confused, less responsive, continues to have decreased appetite. Thus family brought her in for evaluation. Denies any facial droop, no slurring of her words, no focal weakness, just generalized weakness. No history of CAD. No history of strokes. No history of carotid artery disease. No history of atrial fibrillation. In the emergency room, she was found to have multiple fractures of left coracoid process, anterior glenoid, also a lot of soft tissue swelling, left hip contusion, ER physician is contacted orthopedic surgeon, awaiting callback, CT imaging of the head showed right basal ganglia infarct, ER physician contacted neurology service, who recommended inpatient monitoring with aspirin and statin. Review of Systems General: Reports: ROS unobtainable due to medical condition Medications/Allergies Home Medications Medication Instructions Recorded Confirmed Last Taken Type levothyroxine 88 mcg PO QAM 06/25/19 04/20/21 06/24/19 History fluoxetine 20 mg PO BID 10/23/20 04/20/21 Unknown History prednisone 2.5 mg PO BID 10/23/20 04/20/21 Unknown History hydrocodone-acetaminophen 1 tab PO Q6H PRN #14 tab 04/19/21 04/20/21 04/20/21 02:00 Rx acetaminophen [Tylenol Ex Str 500 mg PO Q4H PRN 04/20/21 04/20/21 Unknown History Rapid Release] cyanocobalamin (vitamin B-12) 1,000 mcg PO BID 04/20/21 04/20/21 Unknown History [Vitamin B-12] pantoprazole [Protonix] 40 mg PO QAM 04/20/21 04/20/21 Unknown History Allergies Allergy/AdvReac Type Severity Reaction Status Date / Time No Known Allergies Allergy Verified 04/20/21 16:05 PFSH Acute PFSH: Medical History (Updated 04/20/21 @ 18:47 by Justino Purcell MD) Anemia COVID-06 march 2020 Facial hematoma Hypertension Hypothyroidism (acquired) Lower gastrointestinal hemorrhage Syncope Surgical History (Updated 04/20/21 @ 18:44 by Justino Purcell MD) H/O mastectomy Family History (Updated 04/20/21 @ 18:44 by Justino Purcell MD) Father CAD (coronary artery disease) Social History (Updated 04/20/21 @ 18:44 by Justino Purcell MD) Smoking and tobacco status: never smoked Alcohol intake: never Substance/Drug Use: never Vitals/I&O/Wt Last Vital Signs Temp 99.1 F 04/20/21 14:56 Pulse 90 04/20/21 14:56 Resp 19 H 04/20/21 14:56 BP 195/97 04/20/21 14:56 Pulse Ox 97 04/20/21 14:56 Weight last 48 hrs Weight 60.781 kg Physical Exam Const: COMMON NORMALS: no acute distress GENERAL APPEARANCE: cooperative and comfortable ORIENTATION/CONSCIOUSNESS: Yes awake, Yes oriented to person and Yes confused; not oriented to place and not oriented to time HENMT: COMMON NORMALS: normocephalic HEAD & SCALP: normocephalic Eye: COMMON NORMALS: Equal, round and reactive pupils present and EOMs intact bilaterally GENERAL EYE: appearance normal, both eyes and all related structures PUPIL: Yes Equal, round and reactive pupils present Neck/C-Spine: COMMON NORMALS: full ROM and no lymphadenopathy THYROID: Thyroid normal Lymph: LYMPHATIC: no lymphadenopathy noted Resp: COMMON NORMALS: normal respiratory effort, No retractions, No use of accessory muscles and clear to auscultation bilaterally AUSCULTATION: clear to auscultation bilaterally Cardio: COMMON NORMALS: regular rate, regular rhythm, S1 normal heart sound present, S2 normal heart sound present, No gallops present (Cardio), No clicks present (Cardio) and No murmurs present (Cardio) RATE: regular rate RHYTHM: regular rhythm HEART SOUNDS: S1 normal heart sound present and S2 normal heart sound present GI: COMMON NORMALS: Normal to inspection, nondistended, normoactive bowel sounds present and Soft to palpation Extremity: COMMON NORMALS: normal to inspection, full ROM and no pedal edema NARRATIVE EXTREMITY EXAM: Left arm in a cast Neuro: OTHER: Does follow some commands such as squeezing my fingers on the right and the left, wiggling her toes, sticking out her tongue, does tell me her name, I cannot discern any facial droop, no slurring of her words, but does not follow other neurologic testing Skin: NARRATIVE SKIN EXAM: Multiple bruising, bilateral hips,, left shoulder Data : 04/20/21 15:00 04/20/21 15:00 A&P Assessment and plan (1) Acute encephalopathy: -Multifactorial from fall, CVA, narcotics -CT of the head shows new infarct involving the right basal ganglia -echo on last admit showed Normal left ventricular size and systolic function, EF 81 %. Mild left ventricular hypertrophy. Grade I/IV diastolic dysfunction (abnormal relaxation filling pattern), normal to mildly elevated filling pressures. Thickened mitral valve. Mild mitral annular calcification. Thickened aortic valve. Mild aortic valve regurgitation. Trace tricuspid valve regurgitation. Estimated pulmonary artery peak systolic pressure of 51 mmHg. There is no pericardial effusion. There are no intracardiac masses. No previous study is available for comparison. -Carotid artery ultrasound on last admission showed bilateral ICA stenosis less than 50% -UA is pending -Has received hydrocodone at home Plan: -For now allow for permissive hypertension -Treat if systolic greater than 220, diastolic in the 120 -We will consider an MRI -Telemetry monitoring -Neurochecks, aspiration precautions, NIH stroke scale -Aspirin, statin -Await UA -Morphine as needed for pain -DVT prophylaxis SCD, anticoagulation contraindicated given history of anemia, GI bleed, falls with contusions -DNR, family is okay with intubation if required Humeral fracture, currently in a cast Subcutaneous edema involving left hip, hip contusion continue to monitor we will hip x-rays Mildly displaced fracture of the left coracoid process, hemorrhage in the left supraclavicular region, mildly displaced curvilinear fracture along the anterior glenoid, soft tissue swelling involving the musculature about the left shoulder, orthopedic service has been contacted by ER, awaiting callback Status: Acute (2) Fall: Status: Acute (3) Fracture, humerus: Status: Acute Qualifiers: Encounter type: initial encounter Fracture alignment: displaced Fracture type: closed Humerus Location: distal Laterality: left (4) Hypothyroidism: Status: Acute (5) Contusion of hip, left: Status: Acute (6) Dementia: Status: Acute (7) CVA (cerebral vascular accident): Status: Acute Attestations Medical Necessity Statement*: Patient requires hospitalization, outpatient with observation, for CVA, acute encephalopathy, fall, multiple fractures, Coding Level of Care Code Acute Jukebox Route Driver for [facility] Fwd Diagnoses Acute encephalopathy G93.40 Fall W19.XXXA Fracture, humerus S42.309A Encounter type: initial encounter Fracture alignment: displaced Fracture type: closed Humerus Location: distal Laterality: left Hypothyroidism E03.9 Contusion of hip, left S70.02XA Dementia F03.90 CVA (cerebral vascular accident) I63.9
[2021-04-20 19:24] LABS: SARS Covid-2 Antigen Negative (Negative)
[2021-04-20 20:46] VITALS: BP 193/84; PULSE 89; RESP 16; TEMP 38.2; O2SAT 97
--- NOTE | 2021-04-20 21:00 | ECG_ITS ---
[facility] Test Date: 2021-04-20 Pat Name: Sara Ortiz Department: Room: Gender: Female General Manager Farm: : [id number] Requested By: Ray Padilla Order Number: [id number] Emilio MD: Maxime Camilo M.D. Measurements Intervals [place] Rate: 90 P: 144 LA: 152 QRS: -24 QRSD: 90 T: 60 QT: 364 QTc: 447 Interpretive Statements SINUS RHYTHM POSSIBLE LEFT ATRIAL ENLARGEMENT [-0.1mV P-WAVE IN V1/V2] LOW QRS VOLTAGE IN EXTREMITY LEADS [QRS DEFLECTION < 0.5 mV IN LIMB LEADS] INFERIOR MYOCARDIAL INFARCTION , PROBABLY OLD [40+ ms Q WAVE AND/OR ST/T ABNORMALITY IN II/aVF] Compared to ECG 04/20/2021 15:06:11 Low QRS voltage now present Myocardial infarct finding now present Electronically Signed On 04-21-2021 17:15:59 CDT by Maxime Camilo M.D. [email or web address]
[2021-04-20] MEDS: atorvastatin 40 mg Tablet PO (21:04)
[2021-04-20] MEDS: aspirin 81 mg EC Tablet PO (21:04)
[2021-04-20] MEDS: sodium chloride 0.9% 1,000 ML 75 ML IV (21:04)
[2021-04-20 21:26] LABS: Troponin 5 6HR 19.96 ng/L (0-10)
[2021-04-20 21:27] LABS: Chol HDL Ratio 3.18 mg/dL (0.0-4.40); Cholesterol 175 mg/dL (0-200); HDL Cholesterol 55 mg/dL (60-100); LDL Cholesterol Calculated 108 mg/dL (50-129); LDL HDL Ratio 1.96 RATIO (0.00-3.22); Triglycerides 62 mg/dL (0-150)
[2021-04-20 21:31] LABS: Troponin 5 6HR Delta -2.04 ng/L (0-12)
[2021-04-20 21:47] LABS: Thyroid Stimulating Hormone 0.39 uIU/mL (0.27-4.20)
[2021-04-20 22:34] VITALS: RESP 19; TEMP 37.3; O2SAT 97
[2021-04-21] VITALS (8 sets, daily range): BP systolic 167–190; BP diastolic 74–92; PULSE 83–95; RESP 16–20; TEMP 36.4–37.6; O2SAT 92–98; BMI 22.3
[2021-04-21 03:30] LABS: Urine Appearance Hazy (CLEAR); Urine Color Yellow (Yellow)
[2021-04-21 03:31] LABS: Add Urine Microscopic? YES; Bilirubin Urine Neg (Negative); Blood Urine 2+ (Negative); Glucose Urine UA Norm (Normal); Ketones Urine Negative (Negative); Leukocyte Esterase Urine 2+ (Negative); Nitrate Urine Negative (Negative); Protein Urine Neg (Negative); Specific Gravity, Urine 1.015 (1.005-1.030); Urobilinogen Urine Norm (Negative); pH Urine 5 (5-7)
[2021-04-21 03:35] LABS: Add Urine Culture? Yes; Bacteria Urine 1+ /hpf; Squamous Epithelial Cell Urine 0-4 /hpf (0-5); WBC Urine 55-80 /hpf (0-5)
[2021-04-21] MEDS: levothyroxine 88 mcg Tablet PO (05:58)
[2021-04-21] MEDS: pantoprazole DR 40 mg Tablet PO (05:58)
[2021-04-21 06:12] LABS: Basophils # 0.1 10^3/uL (0.0-0.1); Basophils % 0.6 %; Eosinophils # 0.2 10^3/uL (0.0-0.8); Eosinophils % 1.5 %; Hematocrit 33.8 % (37.0-47.0); Hemoglobin 10.9 g/dL (11.5-15.3); Lymphocytes # 1.4 10^3/uL (0.8-4.8); Lymphocytes % 13.2 %; Mean Corpuscular HGB Conc 32.2 g/dL (30.0-36.0); Mean Corpuscular Hemoglobin 30.6 pg (28.0-34.0); Mean Corpuscular Volume 94.9 fl (81-99); Mean Platelet Volume 11.7 fL (7.4-10.4); Monocytes # 1.1 10^3/uL (0.2-0.9); Monocytes % 10.4 %; Neutrophils # 7.66 10^3/uL (1.8-7.7); Nucleated Red Blood Cells % 0 %; Platelet Count 140 10^3/cmm (130-400); Red Blood Count 3.56 10^6/uL (4.1-5.3); Red Cell Distribution Width 13.4 % (12.1-15.1); White Blood Count 10.4 10^3/uL (4.0-10.0)
[2021-04-21 06:21] LABS: INR 1.32 (0.8-1.2)
[2021-04-21 06:31] LABS: Ammonia 31 umol/L (11-51)
[2021-04-21 06:37] LABS: Alanine Aminotransferase 10 U/L (0-33); Albumin Level 3.5 g/dL (3.5-5.2); Alkaline Phosphatase 86 IU/L (35-105); Anion Gap 12.6 (5-19); Aspartate Amino Transferase 17 U/L (0-32); Blood Urea Nitrogen 19 mg/dL (8-23); C Reactive Protein 120.5 mg/L (0.0-4.9); Calcium 8.6 mg/dL (8.5-10.5); Carbon Dioxide 27 mmol/L (22-29); Chloride 101 mmol/L (98-107); Globulin 2.1 g/dL (1.3-4.6); Glucose 84 mg/dL (65-115); Magnesium 1.6 mg/dL (1.7-2.3); Osmolality Calculated 285 mOsm/kg (285-295); Phosphorus 2.8 mg/dL (2.5-4.5); Potassium 3.6 mmol/L (3.5-5.1); Sodium 137 mmol/L (136-145); Total Bilirubin 0.6 mg/dL (0.15-1.2); Total Protein 5.6 g/dL (6.6-8.7)
[2021-04-21 06:49] LABS: Creatine Phosphokinase 135 U/L (26-192); NT Pro B Type Natriuretic Pept 983 pg/mL (0-450)
[2021-04-21] MEDS: cyanocobalamin 1,000 mcg Tablet 1000 MCG PO ×2 (08:38→18:09)
[2021-04-21] MEDS: fluoxetine 20 mg Capsule PO ×2 (08:38→18:09)
[2021-04-21] MEDS: aspirin 81 mg EC Tablet PO (08:38)
--- NOTE | 2021-04-21 09:35 | PC.SLP ---
Patient's daughter reported that she thought her mother was NPO for possible surgery today. Dr. Purcell was consulted and he requested patient remain NPO even though information regarding surgery was not available. Patient will be followed and evaluated when appropriate.
[2021-04-21] MEDS: cefTRIAXone 1,000 MG in sodium chloride 0.9% (plus) 50 ML 100 MG IV (10:21)
[2021-04-21] MEDS: sodium chloride 0.9% 1,000 ML 75 ML IV (10:21)
--- NOTE | 2021-04-21 10:55 | PC.CHAP ---
Pastoral Care Encounter/Spiritual Assessment Type of Contact [] Declined car pick up driver visit [] Patient/Family/Request visit [] Outpatient visit [] Follow-up visit [] Physician referral [] Code/Alert [x] Routine visit [] Staff referral [] Actively dying [] Patient sleeping [] Family support [] [] Out of room [] Palliative care [] [x] Receiving care in room [] Pre-surgical visit [] Trauma [x] Long length of stay [] ICU visit [] Other: Relational/Emotional Strength [] Patient feels connected with others/family/visitors/staff [] Distress [] Loneliness/isolation [] Abandonment Spirituality of Patient [x] Person of Cheli [] Attends Religion of their Cheli [] Believes in Prayer [] Reads Bible or Zoroastrian materials [] There are Spiritual issues to be addressed Locomotive Driver Interventions [x] Prayer [x] Active listening [x] Non-anxious presence [x] Spiritual/emotional support [] Crisis/trauma care [x] Spiritual counseling [] Bereavement support [] Provided bereavement packet [] Provided Bible/devotional materials [] Provided toy/stuffed animal, coloring book to patient or family member [] Provided Communion [] Anointing/[place] [] Salvation [x] Completed spiritual assessment [] Other: Impact on Illness or Injury [] Angry [] Fearful [x] Anxious [] Often cries [] Exhaustion [x] Unable to work [] Unable to attend temple [] Unable to walk/stand [] Unable to read [] Unable to drive [] Unable to eat/drink [] Unable to sleep [] Unable to be with family [] Patient intubated [] Other: Summary she may need surgery her family is seeing about her helath has other health issues Time spent with patient 10 mins
--- NOTE | 2021-04-21 17:37 | P.PN_ITS ---
Subjective Subjective: Interval history: Patient was seen this morning, she is much more alert, awake, follows commands, alert to person, to place, not to time, family at bedside, her only complaint is left shoulder pain, no nausea, no vomiting, no slurring of words, no facial droop Vitals/I&O/Wt Last Vital Signs Temp 98.9 F 04/21/21 15:30 Pulse 91 04/21/21 15:30 Resp 16 04/21/21 15:30 BP 175/74 04/21/21 15:30 Pulse Ox 92 04/21/21 15:30 04/21/21 04/21/21 04/21/21 06:59 14:59 22:59 Intake Total 1046.25 / 1046.25 Balance 1046.25 / 1046.25 Weight last 48 hrs Weight 60.781 kg Weight 60.781 kg Physical Exam Const: COMMON NORMALS: no acute distress and patient oriented x3 HENMT: COMMON NORMALS: normocephalic HEAD & SCALP: normocephalic Resp: COMMON NORMALS: normal respiratory effort, No retractions, No use of accessory muscles and clear to auscultation bilaterally AUSCULTATION: clear to auscultation bilaterally Cardio: COMMON NORMALS: regular rate, regular rhythm, S1 normal heart sound present and S2 normal heart sound present RATE: regular rate RHYTHM: regular rhythm HEART SOUNDS: S1 normal heart sound present and S2 normal heart sound present GI: COMMON NORMALS: Normal to inspection, nondistended, normoactive bowel sounds present, Soft to palpation, non-tender and No hepatosplenomegaly present PALPATION: Yes Soft to palpation and Yes No hepatosplenomegaly present Extremity: COMMON NORMALS: no pedal edema NARRATIVE EXTREMITY EXAM: Left upper extremity in a sling Neuro: COMMON NORMALS: patient oriented x3 Psych: COMMON NORMALS: mental status grossly normal Data : 04/21/21 05:30 04/21/21 05:30 A&P Assessment and plan (1) Acute encephalopathy: -Multifactorial from fall, CVA, narcotics, UTI -Resolved -CT of the head shows new infarct involving the right basal ganglia -echo on last admit showed Normal left ventricular size and systolic function, EF 81 %. Mild left ventricular hypertrophy. Grade I/IV diastolic dysfunction (abnormal relaxation filling pattern), normal to mildly elevated filling pressures. Thickened mitral valve. Mild mitral annular calcification. Thickened aortic valve. Mild aortic valve regurgitation. Trace tricuspid valve regurgitation. Estimated pulmonary artery peak systolic pressure of 51 mmHg. There is no pericardial effusion. There are no intracardiac masses. No previous study is available for comparison. -Carotid artery ultrasound on last admission showed bilateral ICA stenosis less than 50% -UA with evidence of possible UTI -Has received hydrocodone at home Plan: -For now allow for permissive hypertension -Treat if systolic greater than 220, diastolic in the 120 4 next 48 hours -We will consider an MRI -Telemetry monitoring -Neurochecks, aspiration precautions, NIH stroke scale -Aspirin, statin -Morphine as needed for pain -DVT prophylaxis SCD, anticoagulation contraindicated given history of anemia, GI bleed, falls with contusions -DNR, family is okay with intubation if required Humeral fracture, currently in a cast, switch to shoulder immobilizer Subcutaneous edema involving left hip, hip contusion continue to monitor Mildly displaced fracture of the left coracoid process, hemorrhage in the left supraclavicular region, mildly displaced curvilinear fracture along the anterior glenoid, soft tissue swelling involving the musculature about the left shoulder, orthopedic service will keep in shoulder immobilizer, follow-up with orthopedic service as outpatient Status: Acute (2) Fall: Status: Acute (3) Fracture, humerus: Status: Acute Qualifiers: Encounter type: initial encounter Fracture alignment: displaced Fracture type: closed Humerus Location: distal Laterality: left (4) Hypothyroidism: Status: Acute (5) Contusion of hip, left: Status: Acute (6) Dementia: Status: Acute (7) CVA (cerebral vascular accident): Status: Acute (8) UTI (urinary tract infection): Status: Acute Attestations Medical Necessity Statement*: Patient requires hospitalization for acute encephalopathy, UTI, humeral fracture Coding Level of Care Code Acute Psychologist Experimental for [facility] Diagnoses Acute encephalopathy G93.40 Fall W19.XXXA Fracture, humerus S42.309A Encounter type: initial encounter Fracture alignment: displaced Fracture type: closed Humerus Location: distal Laterality: left Hypothyroidism E03.9 Contusion of hip, left S70.02XA Dementia F03.90 CVA (cerebral vascular accident) I63.9 UTI (urinary tract infection) N39.0
[2021-04-21] MEDS: atorvastatin 40 mg Tablet PO (20:44)
[2021-04-21] MEDS: acetaminophen 325 mg Tablet 650 MG PO (23:36)
--- NOTE | 2021-04-21 23:39 | PC.NURSE ---
BP Pt care nurse aware of BP 190/92
[2021-04-22] VITALS (7 sets, daily range): BP systolic 145–185; BP diastolic 62–82; PULSE 70–96; RESP 17–18; TEMP 36.4–37.6; O2SAT 90–96
[2021-04-22] MEDS: levothyroxine 88 mcg Tablet PO (05:29)
[2021-04-22] MEDS: pantoprazole DR 40 mg Tablet PO (05:29)
[2021-04-22 05:44] LABS: Basophils # 0.1 10^3/uL (0.0-0.1); Basophils % 0.7 %; Eosinophils # 0.3 10^3/uL (0.0-0.8); Eosinophils % 2.4 %; Hemoglobin 10.7 g/dL (11.5-15.3); Lymphocytes # 1.9 10^3/uL (0.8-4.8); Lymphocytes % 18.2 %; Mean Corpuscular HGB Conc 32.4 g/dL (30.0-36.0); Mean Corpuscular Hemoglobin 30.1 pg (28.0-34.0); Mean Platelet Volume 11.3 fL (7.4-10.4); Monocytes % 9.2 %; Neutrophils # 7.34 10^3/uL (1.8-7.7); Neutrophils % 69.2 %; Nucleated Red Blood Cells % 0 %; Platelet Count 146 10^3/cmm (130-400); Red Blood Count 3.55 10^6/uL (4.1-5.3); Red Cell Distribution Width 13.2 % (12.1-15.1); White Blood Count 10.6 10^3/uL (4.0-10.0)
[2021-04-22 05:52] LABS: INR 1.17 (0.8-1.2)
[2021-04-22 05:56] LABS: Alanine Aminotransferase 12 U/L (0-33); Albumin Level 3.4 g/dL (3.5-5.2); Alkaline Phosphatase 88 IU/L (35-105); Anion Gap 13.7 (5-19); Aspartate Amino Transferase 20 U/L (0-32); Blood Urea Nitrogen 18 mg/dL (8-23); C Reactive Protein 162.7 mg/L (0.0-4.9); Calcium 8.6 mg/dL (8.5-10.5); Carbon Dioxide 25 mmol/L (22-29); Chloride 103 mmol/L (98-107); Globulin 2.5 g/dL (1.3-4.6); Glucose 97 mg/dL (65-115); Magnesium 1.8 mg/dL (1.7-2.3); Osmolality Calculated 288 mOsm/kg (285-295); Phosphorus 2.5 mg/dL (2.5-4.5); Potassium 3.7 mmol/L (3.5-5.1); Sodium 138 mmol/L (136-145); Total Bilirubin 0.7 mg/dL (0.15-1.2); Total Protein 5.9 g/dL (6.6-8.7)
[2021-04-22 06:03] LABS: Ammonia 27 umol/L (11-51)
[2021-04-22 06:09] LABS: Creatine Phosphokinase 155 U/L (26-192); NT Pro B Type Natriuretic Pept 892 pg/mL (0-450)
[2021-04-22] MEDS: fluoxetine 20 mg Capsule PO ×2 (09:12→18:17)
[2021-04-22] MEDS: cyanocobalamin 1,000 mcg Tablet 1000 MCG PO ×2 (09:13→18:17)
[2021-04-22] MEDS: aspirin 81 mg EC Tablet PO (09:13)
--- NOTE | 2021-04-22 09:43 | PC.CHAP ---
Pastoral Care Encounter/Spiritual Assessment Type of Contact [] Declined portfolio specialist visit [] Patient/Family/Request visit [] Outpatient visit [] Follow-up visit [] Physician referral [] Code/Alert [x] Routine visit [] Staff referral [] Actively dying [] Patient sleeping [] Family support [] [] Out of room [] Palliative care [] [] Receiving care in room [] Pre-surgical visit [] Trauma [] Long length of stay [] ICU visit [] Other: Relational/Emotional Strength [] Patient feels connected with others/family/visitors/staff [] Distress [] Loneliness/isolation [] Abandonment Spirituality of Patient [x] Person of Cheli [] Attends Orthodox of their Cheli [x] Believes in Prayer [] Reads Bible or Jain materials [] There are Spiritual issues to be addressed 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 Interventions [x] Prayer [x] Active listening [] Non-anxious presence [] Spiritual/emotional support [] Crisis/trauma care [] Spiritual counseling [] Bereavement support [] Provided bereavement packet [] Provided Bible/devotional materials [] Provided toy/stuffed animal, coloring book to patient or family member [] Provided Communion [] Anointing/[place] [] Salvation [] Completed spiritual assessment [] Other: Impact on Illness or Injury [] Angry [] Fearful [] Anxious [] Often cries [] Exhaustion [] Unable to work [] Unable to attend confucianism [] Unable to walk/stand [] Unable to read [] Unable to drive [] Unable to eat/drink [] Unable to sleep [] Unable to be with family [] Patient intubated [] Other: Summary Time spent with patient 10 min
[2021-04-22] MEDS: cefTRIAXone 1,000 MG in sodium chloride 0.9% (plus) 50 ML 100 MG IV (10:05)
[2021-04-22] MEDS: amlodipine 10 mg Tablet PO (13:40)
--- NOTE | 2021-04-22 18:37 | P.PN_ITS ---
Subjective Subjective: Interval history: Patient was seen this morning at bedtime, she had a difficult night, didnt fall asleep until late, she is a bit sleepy this morning, she follows commands this morning, but falls back asleep Vitals/I&O/Wt Last Vital Signs Temp 98.3 F 04/22/21 15:42 Pulse 96 04/22/21 15:42 Resp 17 04/22/21 15:42 BP 170/76 04/22/21 15:42 Pulse Ox 90 04/22/21 15:42 04/22/21 04/22/21 04/22/21 06:59 14:59 22:59 Intake Total 120 / 2286.25 290 / 290 Balance 120 / 2286.25 290 / 290 Weight last 48 hrs Weight 60.781 kg Physical Exam Const: COMMON NORMALS: no acute distress, patient oriented x3 and alert GENERAL APPEARANCE: cooperative and comfortable ORIENTATION/CONSCIOUSNESS: Yes awake, Yes oriented to person and Yes oriented to place; not oriented to time HENMT: COMMON NORMALS: normocephalic HEAD & SCALP: normocephalic Lymph: LYMPHATIC: no lymphadenopathy noted Resp: COMMON NORMALS: normal respiratory effort, No retractions, No use of accessory muscles and clear to auscultation bilaterally AUSCULTATION: clear to auscultation bilaterally Cardio: COMMON NORMALS: regular rate, regular rhythm, S1 normal heart sound present and S2 normal heart sound present RATE: regular rate RHYTHM: regular rhythm HEART SOUNDS: S1 normal heart sound present and S2 normal heart sound present GI: COMMON NORMALS: Normal to inspection, nondistended, normoactive bowel sounds present, Soft to palpation and non-tender PALPATION: Yes Soft to palpation Extremity: COMMON NORMALS: no pedal edema Neuro: COMMON NORMALS: patient oriented x3, CN's II-XII intact bilaterally and moves all extremities SENSORIUM/ORIENTATION: Yes alert, Yes oriented to person, Yes oriented to place and No oriented to time Psych: COMMON NORMALS: mental status grossly normal Skin: NARRATIVE SKIN EXAM: Multiple bruising, bilateral hips,, left shoulder Data : 04/22/21 05:26 04/22/21 05:26 Micro: Microbiology 04/21/21 01:30 Urine Culture - Preliminary Urine,Clean Catch A&P Assessment and plan (1) Acute encephalopathy: -Multifactorial from fall, CVA, narcotics, UTI -Resolved -CT of the head shows new infarct involving the right basal ganglia -echo on last admit showed Normal left ventricular size and systolic function, EF 81 %. Mild left ventricular hypertrophy. Grade I/IV diastolic dysfunction (abnormal relaxation filling pattern), normal to mildly elevated filling pressures. Thickened mitral valve. Mild mitral annular calcification. Thickened aortic valve. Mild aortic valve regurgitation. Trace tricuspid valve regurgitation. Estimated pulmonary artery peak systolic pressure of 51 mmHg. There is no pericardial effusion. There are no intracardiac masses. No previous study is available for comparison. -Carotid artery ultrasound on last admission showed bilateral ICA stenosis less than 50% -UA with evidence of possible UTI -Has received hydrocodone at home Plan: -Norvasc 10mgqD -lisinopril 20mgBID -Telemetry monitoring -Neurochecks, aspiration precautions, NIH stroke scale -Aspirin, statin -DVT prophylaxis SCD, anticoagulation contraindicated given history of anemia, GI bleed, falls with contusions -DNR, family is okay with intubation if required Humeral fracture, currently in a cast, shoulder immobilizer Subcutaneous edema involving left hip, hip contusion continue to monitor Mildly displaced fracture of the left coracoid process, hemorrhage in the left supraclavicular region, mildly displaced curvilinear fracture along the anterior glenoid, soft tissue swelling involving the musculature about the left shoulder, orthopedic service will keep in shoulder immobilizer, follow-up with orthopedic service as outpatient Status: Acute (2) Fall: Status: Acute (3) Fracture, humerus: Status: Acute Qualifiers: Encounter type: initial encounter Fracture alignment: displaced Fracture type: closed Humerus Location: distal Laterality: left (4) Hypothyroidism: Status: Acute (5) Contusion of hip, left: Status: Acute (6) Dementia: Status: Acute (7) CVA (cerebral vascular accident): Status: Acute (8) UTI (urinary tract infection): Status: Acute Attestations Medical Necessity Statement*: patient requires hospitalization for cva, humeral fracdture Coding Level of Care Code Acute Journeyman Mechanic for [facility] Diagnoses Acute encephalopathy G93.40 Fall W19.XXXA Fracture, humerus S42.309A Encounter type: initial encounter Fracture alignment: displaced Fracture type: closed Humerus Location: distal Laterality: left Hypothyroidism E03.9 Contusion of hip, left S70.02XA Dementia F03.90 CVA (cerebral vascular accident) I63.9 UTI (urinary tract infection) N39.0
[2021-04-22] MEDS: lisinopril 20 mg Tablet PO (19:00)
[2021-04-22] MEDS: atorvastatin 40 mg Tablet PO (20:46)
--- NOTE | 2021-04-23 00:06 | PC.NURSE ---
Patient refusing to wear tele or oxygen consistently. This nurse tried reapplying oxygen several times during patient roundings. Nurse educated pt on the importance of wearing the oxygen and tele but pt is unable to comprehend. Pt care nurse JUANA Hanson notified.
[2021-04-23 03:41] VITALS: BP 155/70; PULSE 90; RESP 18; TEMP 37.8; O2SAT 90
[2021-04-23] MEDS: levothyroxine 88 mcg Tablet PO (05:29)
[2021-04-23] MEDS: pantoprazole DR 40 mg Tablet PO (05:29)
[2021-04-23 06:03] LABS: Basophils # 0.1 10^3/uL (0.0-0.1); Basophils % 0.6 %; Eosinophils # 0.3 10^3/uL (0.0-0.8); Eosinophils % 2.8 %; Hematocrit 31.3 % (37.0-47.0); Hemoglobin 10.6 g/dL (11.5-15.3); Lymphocytes # 1.2 10^3/uL (0.8-4.8); Lymphocytes % 12.1 %; Mean Corpuscular HGB Conc 33.9 g/dL (30.0-36.0); Mean Corpuscular Hemoglobin 31.6 pg (28.0-34.0); Mean Corpuscular Volume 93.4 fl (81-99); Mean Platelet Volume 11.2 fL (7.4-10.4); Monocytes # 0.9 10^3/uL (0.2-0.9); Monocytes % 9.7 %; Neutrophils # 7.04 10^3/uL (1.8-7.7); Neutrophils % 74.4 %; Nucleated Red Blood Cells % 0 %; Platelet Count 154 10^3/cmm (130-400); Red Blood Count 3.35 10^6/uL (4.1-5.3); Red Cell Distribution Width 13.1 % (12.1-15.1); White Blood Count 9.5 10^3/uL (4.0-10.0)
[2021-04-23 06:21] LABS: Alanine Aminotransferase 11 U/L (0-33); Albumin Level 3.2 g/dL (3.5-5.2); Alkaline Phosphatase 83 IU/L (35-105); Anion Gap 14.4 (5-19); Aspartate Amino Transferase 19 U/L (0-32); Blood Urea Nitrogen 17 mg/dL (8-23); C Reactive Protein 135.6 mg/L (0.0-4.9); Calcium 8.6 mg/dL (8.5-10.5); Carbon Dioxide 25 mmol/L (22-29); Chloride 100 mmol/L (98-107); Globulin 2.6 g/dL (1.3-4.6); Glucose 97 mg/dL (65-115); Magnesium 1.5 mg/dL (1.7-2.3); Osmolality Calculated 283 mOsm/kg (285-295); Phosphorus 2.7 mg/dL (2.5-4.5); Potassium 3.4 mmol/L (3.5-5.1); Sodium 136 mmol/L (136-145); Total Bilirubin 0.7 mg/dL (0.15-1.2); Total Protein 5.8 g/dL (6.6-8.7)
[2021-04-23 07:53] VITALS: BP 155/75; PULSE 90; RESP 18; TEMP 37.2; O2SAT 92
[2021-04-23] MEDS: aspirin 81 mg EC Tablet PO (09:42)
[2021-04-23] MEDS: fluoxetine 20 mg Capsule PO ×2 (09:42→17:53)
[2021-04-23] MEDS: cyanocobalamin 1,000 mcg Tablet 1000 MCG PO ×2 (09:42→17:53)
[2021-04-23] MEDS: cefTRIAXone 1,000 MG in sodium chloride 0.9% (plus) 50 ML 100 MG IV (09:42)
[2021-04-23] MEDS: potassium chloride ER 20 mEq Tablet 40 MEQ PO (09:42)
[2021-04-23] MEDS: amlodipine 10 mg Tablet PO (09:43)
[2021-04-23] MEDS: spironolactone 25 mg Tablet PO (09:43)
[2021-04-23] MEDS: lisinopril 20 mg Tablet PO ×2 (09:43→17:53)
[2021-04-23] MEDS: magnesium sulfate premix 2 GM/50 ML PIGGYBACK IV (10:32)
[2021-04-23 11:38] VITALS: BP 121/69; PULSE 87; RESP 18; TEMP 36.7; O2SAT 91
--- NOTE | 2021-04-23 13:40 | PM.PN ---
Subjective Subjective: Interval history: Was seen this morning, she is sitting up in bed, alert to person, to place, not to time, she follows all commands, denies any fevers, no cough, continues to have pain in the left upper extremity, she tells me that she slept well last night Vitals/I&O/Wt Last Vital Signs Temp 98.1 F 04/23/21 11:38 Pulse 87 04/23/21 11:38 Resp 18 04/23/21 11:38 BP 121/69 04/23/21 11:38 Pulse Ox 91 04/23/21 11:38 04/22/21 04/23/21 04/23/21 22:59 06:59 14:59 Intake Total 100 / 390 240 / 240 Balance 100 / 390 240 / 240 Physical Exam Const: COMMON NORMALS: no acute distress and patient oriented x3 Resp: COMMON NORMALS: normal respiratory effort, No retractions, No use of accessory muscles and clear to auscultation bilaterally AUSCULTATION: clear to auscultation bilaterally Cardio: COMMON NORMALS: regular rate, regular rhythm, S1 normal heart sound present and S2 normal heart sound present RATE: regular rate RHYTHM: regular rhythm HEART SOUNDS: S1 normal heart sound present and S2 normal heart sound present GI: COMMON NORMALS: Normal to inspection, nondistended, normoactive bowel sounds present, Soft to palpation and non-tender PALPATION: Yes Soft to palpation Extremity: COMMON NORMALS: no pedal edema NARRATIVE EXTREMITY EXAM: Currently in the shoulder immobilizer Neuro: COMMON NORMALS: patient oriented x3 Psych: COMMON NORMALS: mental status grossly normal Data : 04/23/21 05:38 04/23/21 05:38 Micro: Microbiology 04/21/21 01:30 Urine Culture - Final Urine,Clean Catch A&P Assessment and plan (1) Acute encephalopathy: -Multifactorial from fall, CVA, narcotics, UTI -Resolved -CT of the head shows new infarct involving the right basal ganglia -echo on last admit showed Normal left ventricular size and systolic function, EF 81 %. Mild left ventricular hypertrophy. Grade I/IV diastolic dysfunction (abnormal relaxation filling pattern), normal to mildly elevated filling pressures. Thickened mitral valve. Mild mitral annular calcification. Thickened aortic valve. Mild aortic valve regurgitation. Trace tricuspid valve regurgitation. Estimated pulmonary artery peak systolic pressure of 51 mmHg. There is no pericardial effusion. There are no intracardiac masses. No previous study is available for comparison. -Carotid artery ultrasound on last admission showed bilateral ICA stenosis less than 50% -UA with evidence of possible UTI -Has received hydrocodone at home Plan: -Norvasc 10mgqD -lisinopril 20mgBID -Spironolactone 25 mg daily -We will replace electrolytes -Telemetry monitoring -Neurochecks, aspiration precautions, NIH stroke scale -Aspirin, statin -DVT prophylaxis SCD, anticoagulation contraindicated given history of anemia, GI bleed, falls with contusions -DNR, family is okay with intubation if required UTI, finished 3 days of Rocephin Humeral fracture, currently in a cast, shoulder immobilizer Subcutaneous edema involving left hip, hip contusion continue to monitor Mildly displaced fracture of the left coracoid process, hemorrhage in the left supraclavicular region, mildly displaced curvilinear fracture along the anterior glenoid, soft tissue swelling involving the musculature about the left shoulder, orthopedic service will keep in shoulder immobilizer, follow-up with orthopedic service as outpatient Status: Acute (2) Fall: Status: Acute (3) Fracture, humerus: Status: Acute Qualifiers: Encounter type: initial encounter Fracture alignment: displaced Fracture type: closed Humerus Location: distal Laterality: left (4) Hypothyroidism: Status: Acute (5) Contusion of hip, left: Status: Acute (6) Dementia: Status: Acute (7) CVA (cerebral vascular accident): Status: Acute (8) UTI (urinary tract infection): Status: Acute Attestations Medical Necessity Statement*: Patient requires hospitalization for CVA Coding Level of Care Code Acute Pulmonologist Intensivist for [facility] Diagnoses Acute encephalopathy G93.40 Fall W19.XXXA Fracture, humerus S42.309A Encounter type: initial encounter Fracture alignment: displaced Fracture type: closed Humerus Location: distal Laterality: left Hypothyroidism E03.9 Contusion of hip, left S70.02XA Dementia F03.90 CVA (cerebral vascular accident) I63.9 UTI (urinary tract infection) N39.0
[2021-04-23 15:06] VITALS: BP 131/70; PULSE 90; RESP 18; TEMP 36.9; O2SAT 90
--- NOTE | 2021-04-23 17:45 | PC.NUTR ---
pt asleep. said she might eat later.
[2021-04-23 20:00] VITALS: BP 129/65; PULSE 87; RESP 18; TEMP 36.6; O2SAT 91
[2021-04-23] MEDS: atorvastatin 40 mg Tablet PO (20:21)
[2021-04-24] VITALS: BP 160/72; PULSE 92; RESP 19; TEMP 36.9; O2SAT 92
[2021-04-24 04:00] VITALS: BP 160/75; PULSE 86; RESP 17; TEMP 36.4; O2SAT 91
[2021-04-24 05:21] LABS: Basophils # 0.1 10^3/uL (0.0-0.1); Basophils % 0.6 %; Eosinophils # 0.3 10^3/uL (0.0-0.8); Eosinophils % 3.8 %; Hematocrit 31.7 % (37.0-47.0); Hemoglobin 10.3 g/dL (11.5-15.3); Lymphocytes # 1.4 10^3/uL (0.8-4.8); Lymphocytes % 16.2 %; Mean Corpuscular HGB Conc 32.5 g/dL (30.0-36.0); Mean Corpuscular Hemoglobin 30.2 pg (28.0-34.0); Mean Platelet Volume 11.4 fL (7.4-10.4); Monocytes # 0.9 10^3/uL (0.2-0.9); Monocytes % 10.6 %; Neutrophils # 5.72 10^3/uL (1.8-7.7); Neutrophils % 68.6 %; Nucleated Red Blood Cells % 0 %; Platelet Count 184 10^3/cmm (130-400); Red Blood Count 3.41 10^6/uL (4.1-5.3); Red Cell Distribution Width 13.2 % (12.1-15.1); White Blood Count 8.3 10^3/uL (4.0-10.0)
[2021-04-24] MEDS: pantoprazole DR 40 mg Tablet PO (05:28)
[2021-04-24] MEDS: levothyroxine 88 mcg Tablet PO (05:28)
[2021-04-24 05:40] LABS: Alanine Aminotransferase 11 U/L (0-33); Albumin Level 3.3 g/dL (3.5-5.2); Alkaline Phosphatase 83 IU/L (35-105); Anion Gap 13.1 (5-19); Aspartate Amino Transferase 20 U/L (0-32); Blood Urea Nitrogen 22 mg/dL (8-23); Calcium 8.2 mg/dL (8.5-10.5); Carbon Dioxide 26 mmol/L (22-29); Chloride 103 mmol/L (98-107); Globulin 2.8 g/dL (1.3-4.6); Glucose 103 mg/dL (65-115); Osmolality Calculated 290 mOsm/kg (285-295); Potassium 4.1 mmol/L (3.5-5.1); Sodium 138 mmol/L (136-145); Total Bilirubin 0.8 mg/dL (0.15-1.2); Total Protein 6.1 g/dL (6.6-8.7)
[2021-04-24 07:26] VITALS: BP 152/72; PULSE 84; RESP 17; TEMP 37.2; O2SAT 90
[2021-04-24] MEDS: cyanocobalamin 1,000 mcg Tablet 1000 MCG PO (08:23)
[2021-04-24] MEDS: lisinopril 20 mg Tablet PO (08:24)
[2021-04-24] MEDS: amlodipine 10 mg Tablet PO (08:24)
[2021-04-24] MEDS: fluoxetine 20 mg Capsule PO (08:24)
[2021-04-24] MEDS: aspirin 81 mg EC Tablet PO (08:24)
[2021-04-24] MEDS: spironolactone 25 mg Tablet PO (08:24)
--- NOTE | 2021-04-24 11:25 | PC.SOCIAL ---
Pg 2 IMM Explained to pt & family Pg 2 IMM. No questions voiced. Provided pt a copy. Initialed, dated, & timed a copy & placed in chart.
[2021-04-24 12:00] VITALS: BP 145/72; PULSE 92; RESP 17; TEMP 37; O2SAT 90
--- NOTE | 2021-04-24 12:01 | P.DS_ITS ---
Discharge Providers Date of Admission: 04/21/21 15:29 Date of Discharge: April 24, 2021 Attending Provider at Admission: Justino Purcell MD Attending Provider at Discharge: Justino Purcell MD Primary Care Provider: Jesús Garcia MD Diagnoses at Discharge Discharge Diagnosis (1) Acute encephalopathy: Status: Acute (2) Fall: Status: Acute (3) Fracture, humerus: Status: Acute Qualifiers: Encounter type: initial encounter Fracture alignment: displaced Fracture type: closed Humerus Location: distal Laterality: left (4) Hypothyroidism: Status: Acute (5) Contusion of hip, left: Status: Acute (6) Dementia: Status: Acute (7) CVA (cerebral vascular accident): Status: Acute (8) UTI (urinary tract infection): Status: Acute Reason for Visit Reason for Visit: Altered mental status Hospital Course Hospital Course Sara Ortiz is a 85 year old female with a past medical history of dementia, history of gastritis, hypothyroidism, history of Covid infection, history of di verticular bleed, history of recurrent falls, history of recurrent syncope, who presents to [facility] for altered mental status and fall. Patient was admitted to [facility] for acute encephalopathy: -Multifactorial from fall, CVA, narcotics, UTI -Received aspirin, statin, fluid therapy, permissive hypertension for her CVA -Receive antibiotics for her UTI -Her mentation improved, alert to person, place, not to time, has underlying dementia, following commands, working with physical therapy -CT of the head shows new infarct involving the right basal ganglia -echo on last admit showed Normal left ventricular size and systolic function, EF 81 %. Mild left ventricular hypertrophy. Grade I/IV diastolic dysfunction (abnormal relaxation filling pattern), normal to mildly elevated filling pressures. Thickened mitral valve. Mild mitral annular calcification. Thickened aortic valve. Mild aortic valve regurgitation. Trace tricuspid valve regurgitation. Estimated pulmonary artery peak systolic pressure of 51 mmHg. There is no pericardial effusion. There are no intracardiac masses. No previous study is available for comparison. -Carotid artery ultrasound on last admission showed bilateral ICA stenosis less than 50% -Discharged to senior living with aspirin, statin, with close follow-up with neurology as outpatient -For hypertension, discharged on amlodipine, chlorthalidone, lisinopril, spironolactone For her UTI she finished antibiotic treatment as inpatient For her humeral fracture, currently in a cast, continue shoulder immobilizer, follow-up with Dr. Clement Subcutaneous edema involving left hip, hip contusion continue to monitor Mildly displaced fracture of the left coracoid process, hemorrhage in the left supraclavicular region, mildly displaced curvilinear fracture along the anterior glenoid, soft tissue swelling involving the musculature about the left shoulder, orthopedic service will keep in shoulder immobilizer, follow-up with orthopedic service as outpatient, hydrocodone as needed for pain, Flexeril as needed for muscle spasms Physical Exam Const: COMMON NORMALS: no acute distress and patient oriented x3 Resp: COMMON NORMALS: normal respiratory effort, No retractions, No use of accessory muscles and clear to auscultation bilaterally AUSCULTATION: clear to auscultation bilaterally Cardio: COMMON NORMALS: regular rate, regular rhythm, S1 normal heart sound present and S2 normal heart sound present RATE: regular rate RHYTHM: reg ular rhythm HEART SOUNDS: S1 normal heart sound present and S2 normal heart sound present GI: COMMON NORMALS: Normal to inspection, nondistended, normoactive bowel sounds present, Soft to palpation and non-tender PALPATION: Yes Soft to palpation Extremity: COMMON NORMALS: no pedal edema Neuro: COMMON NORMALS: patient oriented x3 Psych: COMMON NORMALS: mental status grossly normal Discharge Data Data Completed and Pending: Completed Studies During Hospitalization Category Date Time Status CT cervical spin wo con* [id number] Stat Cat Scan 04/20/21 14:[address] chest abd pel w con* Urgent Cat Scan 04/20/21 16:[address] head wo con* [id number] Stat Cat Scan 04/20/21 14:59 Completed XR chest 1V taisha ble [id number] Stat Exams 04/20/21 14:59 Completed Pending at discharge Category Date Time Status Complete Blood Co unt w/Auto AM LABS Lab 04/25/21 04:00 Ordered Complete Blood Co unt w/Auto AM LABS Lab 04/26/21 04:00 Ordered Comprehensive Met abolic Panel AM LA BS Lab 04/25/21 04:00 Ordered Comprehensive Met abolic Panel AM LA BS Lab 04/26/21 04:00 Ordered Urinalysis and Mi croscopic Stat Lab 04/20/21 15:00 Uncollected Labs from last 24 hours 04/24/21 04/24/21 05:01 05:01 WBC 8.3 RBC 3.41 L Hgb 10.3 L Hct 31.7 L MCV 93.0 MCH 30.2 MCHC 32.5 RDW 13.2 Plt Count 184 MPV 11.4 H Neut % (Auto) 68.6 Lymph % (Auto) 16.2 [place] % (Auto) 10.6 Eos % (Auto) 3.8 Baso % (Auto) 0.6 Neut # (Auto) 5.72 Lymph # (Auto) 1.4 [place] # (Auto) 0.9 Eos # (Auto) 0.3 Baso # (Auto) 0.1 Nucleated RBC % (a uto) 0 Nucleated RBCs # 0.0 Sodium 138 Potassium 4.1 Chloride 103 Carbon Dioxide 26 Anion Gap 13.1 BUN 22 Creatinine 0.8 GFR Calculation Not Reportable Glucose 103 Calculated Osmolal ity 290 Calcium 8.2 L Total Bilirubin 0.8 AST 20 ALT 11 Alkaline Phosphata se 83 Total Protein 6.1 L Albumin 3.3 L Globulin 2.8 Vitals: Last Vital Signs Temp 98.9 F 04/24/21 07:26 Pulse 84 04/24/21 07:26 Resp 17 04/24/21 07:26 BP 152/72 04/24/21 07:26 Pulse Ox 90 04/24/21 07:26 Discharge Plan Discharge Patient Disposition: Home Condition: Stable Prescriptions: New atorvastatin 40 mg Tablet 40 mg PO BEDTIME 30 Days Qty: 30 RF: 0 lisinopril 20 mg Tablet 20 mg PO BID 30 Days Qty: 60 RF: 0 chlorthalidone 25 mg Tablet 25 mg PO DAILY 30 Days Qty: 30 RF: 0 aspirin 81 mg Tablet,Delayed Release (Dr/Ec) 81 mg PO DAILY 30 Days Qty: 30 RF: 0 spironolactone 25 mg Tablet 25 mg PO DAILY 30 Days Qty: 30 RF: 0 amlodipine 10 mg Tablet 10 mg PO DAILY 30 Days Qty: 30 RF: 0 hydrocodone-acetaminophen 5-325 mg tablet 1 tab PO Q8H PRN (Reason: pain) 7 Days Qty: 21 RF: 0 cyclobenzaprine 5 mg tablet 5 mg PO BID PRN (Reason: muscle spasm) 30 Days Qty: 60 RF: 0 Continued levothyroxine 88 mcg Tablet 88 mcg PO QAM RF: 0 fluoxetine 20 mg capsule 20 mg PO BID RF: 0 Vitamin B-12 1,000 mcg Tablet 1,000 mcg PO BID RF: 0 acetaminophen 500 mg Tablet 500 mg PO Q4H PRN (Reason: Pain) RF: 0 Protonix 40 mg tablet,delayed release (DR/EC) 40 mg PO QAM RF: 0 Discontinued prednisone 2.5 mg tablet 2.5 mg PO BID RF: 0 hydrocodone-acetaminophen 5-325 mg tablet 1 tab PO Q6H PRN (Reason: pain) Qty: 14 RF: 0 Discharge Orders: Discharge Order (Routine); Ordered 04/24/21 Ordered By: Justino Purcell Referrals: [facility] [Outside] Emiliana Juares MD [Physician] - 1 month Michelle Clement MD [Physician] - 2 weeks Discharge Diet: Cardiac Discharge Activity: Resume usual activity Patient Instructions: Urinary Tract Infection in Women (DC), Stroke (DC), Opioid Safety, Stroke Stoplight Activity Restrictions/Additional Instructions: -Follow-up with Dr. Clement in 1 to 2 weeks -Continue shoulder immobilizer until you see Dr. Saleem -Use hydrocodone sparingly for pain -Flexeril for muscle spasms -For your stroke use aspirin, statin as prescribed -Follow-up with neurology -Monitor blood pressures closely, Discharge Attestations Time Spent in Discharge Care*: less than 30 min Status at Discharge: Cognitive status at discharge: cognitively intact , Behavioral status at discharge: cooperative , Quality Metrics Clinical Quality Measures During this hospital stay, did patient experience: Stroke Contraindication to Antithrombotic: Antithrombotic prescribed Contraindication to Anticoagulation: Overlap treatment not indicated Contraindication to Statin: Statin prescribed and None Coding Level of Care Code Acute Chg FW DC note Diagnoses Acute encephalopathy G93.40 Fall W19.XXXA Fracture, humerus S42.309A Encounter type: initial encounter Fracture alignment: displaced Fracture type: closed Humerus Location: distal Laterality: left Hypothyroidism E03.9 Contusion of hip, left S70.02XA Dementia F03.90 CVA (cerebral vascular accident) I63.9 UTI (urinary tract infection) N39.0
[2021-04-24] MEDS: chlorthalidone 25 mg Tablet PO (12:05)
--- NOTE | 2021-04-24 12:41 | PC.NURSE ---
Called and gave report to [facility] to JUANA Johnson.
[2021-04-24 13:00] VITALS: BP 145/72; PULSE 92; RESP 17; TEMP 37; O2SAT 90
== END 2021-04-24 13:02 | disposition home or self-care (01) | DRG 65 ==
LOC: ER 15:03 → MEDSURG 04-21 09:19
PROVIDERS: Admitting Provider Family Medicine; Emergency Provider Emergency Medicine; PCP Family Medicine; Visit Provider Family Medicine
DX: I63.9 Cerebral infarction, unspecified (principal); S42.402A Unspecified fracture of lower end of left humerus, initial encounter for closed fracture; N39.0 Urinary tract infection, site not specified; R29.6 Repeated falls; D64.9 Anemia, unspecified; I10 Essential (primary) hypertension; E03.9 Hypothyroidism, unspecified; Z90.10 Acquired absence of unspecified breast and nipple; Z79.891 Long term (current) use of opiate analgesic; F03.90 Unspecified dementia, unspecified severity, without behavioral disturbance, psychotic disturbance, mood disturbance, and anxiety; Z86.16 Personal history of COVID-19; S70.12XA Contusion of left thigh, initial encounter; W01.0XXA Fall on same level from slipping, tripping and stumbling without subsequent striking against object, initial encounter
CPT/HCPCS: 36415; 70450; 71045; 71260; 72125; 73080; 74177; 80053; 80061; 81001; 82140; 82550; 83735; 83880; 84100; 84439; 84443; 84484; 85025; 85378; 85610; 85730; 86140; 87086; 87426; 92523; 92526; 92610; 93005; 94664; 96374; 96375; 97116; 97161; 97166; 97530; 97535; 99284; 99285; G0378; J0696; J2270; J2310; J3010; J3475; J7030; L3670; Q9967

== ENCOUNTER 2021-07-06 06:14 | Emergency (ER) | payer MEDICARE, SELFPAY ==
[2021-07-06 06:17] VITALS: BP 178/94; PULSE 75; RESP 18; TEMP 36.8; O2SAT 97; BMI 20.7
--- NOTE | 2021-07-06 06:24 | CTR_ITS ---
PROCEDURE INFORMATION: Exam: CT Head Without Contrast Exam date and time: 07/06/2021 6:24 AM Age: 86 years old Clinical indication: Injury or trauma; Blunt trauma (contusions or hematomas) and laceration; Without residual foreign body; Right; Patient HX: Fall this a. M. With blow to frontal. Hematoma with lac to RT eyebrow. TECHNIQUE: Imaging protocol: Computed tomography of the head without contrast. Radiation optimization: All CT scans at this facility use at least one of these dose optimization techniques: automated exposure control; mA and/or kV adjustment per patient size (includes targeted exams where dose is matched to clinical indication); or iterative reconstruction. COMPARISON: CT head wo con* [id number] 04/20/2021 3:25 PM RADIATION DOSE METRICS: Total DLP (mGy-cm): 837.4 FINDINGS: Brain: No acute intracranial hemorrhage or mass effect. There is prominent decreased attenuation in the periventricular white matter, likely from microvascular disease. There is a small old old lacunar infarct in the right basal ganglia region. No definite acute infarct by CT. Cerebral ventricles: Ventricle size is normal for age. Paranasal sinuses: Included paranasal sinuses are essentially clear. Mastoid air cells: No significant acute finding. Vasculature: Vascular calcifications in the internal carotid arteries. Bones/joints: No definite acute skull fracture. Soft tissues: Evidence for prominent soft tissue injury/scalp hematoma/laceration in the supraorbital/frontal region. CT/CT head wo con* [id number] IMPRESSION: 1. No acute intracranial hemorrhage or mass effect. 2. Changes of microvascular disease, and small old right lacunar infarct. 3. Other findings discussed above.
--- NOTE | 2021-07-06 06:25 | ED_ITS ---
HPI - Fall General: Chief Complaint: Fall Stated Complaint: fell Time Seen by Provider: 07/06/21 06:16 History of Present Illness: HPI Narrative: 86-year-old female who presents to the emergency room after a fall. She struck her head as she fell. She relates that she fell because she bent over to reach for a cane and lost her balance. There is no apparent loss of consciousness. Patient does have a history of some mild dementia is at an assisted living center. She presented here by ambulance. She denies any other injuries she is not on any anticoagulants. She has approximately 1-1/2 cm laceration above the right eye. There is no active bleeding. complaint: fall Onset (ago): minute(s) Fall from: standing Fall witnessed: no Place fall occurred: [facility] Loss of consciousness: Unsure Prolonged down time: no Symptoms prior to fall: none Context: tripped/slipped Location of injury: head Quality: dull Associated symptoms-after fall: Reports confusion and weakness; Denies abdominal pain, chest pain, difficulty walking, headache(s), hematuria, lightheadedness, neck pain, numbness, short of breath or vertigo Review of Systems Const: Denies: fever(s), chills, body aches, change in appetite, fatigue or malaise ENMT: Denies: throat pain, ear or mastoid pain, nasal discharge or nasal congestion Card: Denies: chest pain or lightheadedness Resp: Denies: dyspnea, productive cough or non-productive cough GI: Denies: abdominal pain : Denies: hematuria Musc: Denies: neck pain Skin/Breast: Denies: rash or pruritus Neuro: Reports: confusion; Denies: headache(s), difficulty walking or vertigo [facility] ED PFSH: Medical History Anemia COVID-06 march 2020 Facial hematoma Hypertension Hypothyroidism (acquired) Lower gastrointestinal hemorrhage Syncope Surgical History H/O mastectomy Family History Father CAD (coronary artery disease) Social History Smoking and tobacco status: never smoked Alcohol intake: never Physical Exam Const: GENERAL APPEARANCE: cooperative and comfortable ORIENTATION/CONSCIOUSNESS: Yes awake HENMT: COMMON NORMALS: normocephalic and hearing grossly normal bilaterally HEAD & SCALP: normocephalic Eye: COMMON NORMALS: Equal, round and reactive pupils present, EOMs intact bilaterally, conjunctivae normal and no scleral icterus CONJUNCTIVA: Yes conjunctivae normal PUPIL: Yes Equal, round and reactive pupils present Neck/C-Spine: COMMON NORMALS: full ROM, no lymphadenopathy, supple and no JVD Resp: COMMON NORMALS: normal respiratory effort, No retractions, No use of accessory muscles and clear to auscultation bilaterally AUSCULTATION: clear to auscultation bilaterally Cardio: COMMON NORMALS: no JVD, regular rate, regular rhythm and No murmurs present (Cardio) RATE: regular rate RHYTHM: regular rhythm GI: COMMON NORMALS: Soft to palpation and No hepatosplenomegaly present AUSCULTATION: Yes normoactive bowel sounds PALPATION: Yes Soft to palpation, No Tenderness to palpation present (GI), No Guarding due to palpation present (GI) and Yes No hepatosplenomegaly present Extremity: COMMON NORMALS: normal to inspection, capillary refill normal, no clubbing, cyanosis or edema, no calf tenderness and no pedal edema Skin: COMMON NORMALS: no rashes or lesions noted GENERAL SKIN EXAM: no rashes or lesions noted Procedures Laceration Laceration 1: Site: face Side (If applicable): right Size (cm): 1.5 Description: linear Depth: simple, single layer Local Anesthetic: lidocaine 1% and with epi Pre-repair: irrigated extensively Skin layer closed with: other (Prolene) Size (cm): 5-0 Number of sutures: 4 Technique: simple, interrupted Course Vital Signs: Vital signs: Vital Signs Temperature 98.2 F 07/06/21 06:17 Pulse Rate 75 07/06/21 06:17 Respiratory Rate 18 07/06/21 06:17 Blood Pressure 178/94 07/06/21 06:17 Pulse Oximetry 97 07/06/21 06:17 MDM - Fall MDM Narrative: Medical decision making narrative: CT shows some subluxation at C4-5 however it was present in 2019. CT of the neck was recommended today by radiologist reading plain film Dr. Noel read it is unchanged from 2019. We will go ahead and discharge home wound care instructions apply topical [id number] antibiotic ointment to wound twice a day remove in 5 to 7 days return if has further problems. Remainder of CTs and labs unremarkable. Lab Data: Labs: Lab Results 07/06/21 07/06/21 07:05 07:05 WBC 6.6 10^3/uL 10^3/ uL (4.0-10.0) RBC 4.08 10^6/uL L 10 ^6/uL (4.1-5.3) Hgb 12.5 g/dL g/dL (11.5-15.3) Hct 39.1 % % (37.0-47.0) MCV 95.8 fl fl (81-99) MCH 30.6 pg pg (28.0-34.0) MCHC 32.0 g/dL g/dL (30.0-36.0) RDW 14.1 % % (12.1-15.1) Plt Count 196 10^3/cmm 10^3 /cmm (130-400) MPV 11.2 fL H fL (7.4-10.4) Neut % (Auto) 59.0 % % Lymph % (Auto) 25.2 % % [place] % (Auto) 10.2 % % Eos % (Auto) 4.2 % % Baso % (Auto) 1.1 % % Neut # (Auto) 3.89 10^3/uL 10^3 /uL (1.8-7.7) Lymph # (Auto) 1.7 10^3/uL 10^3/ uL (0.8-4.8) [place] # (Auto) 0.7 10^3/uL 10^3/ uL (0.2-0.9) Eos # (Auto) 0.3 10^3/uL 10^3/ uL (0.0-0.8) Baso # (Auto) 0.1 10^3/uL 10^3/ uL (0.0-0.1) Nucleated RBC % (a uto) 0 % % Nucleated RBCs # 0.0 /100WBC /100W BC Sodium 138 mmol/L mmol/L (136-145) Potassium 4.0 mmol/L mmol/L (3.5-5.1) Chloride 102 mmol/L mmol/L (98-107) Carbon Dioxide 23 mmol/L mmol/L (22-29) Anion Gap 17.0 (5-19) BUN 17 mg/dL mg/dL (8-23) Creatinine 1.0 mg/dL H mg/dL (0.5-0.9) GFR Calculation Not Reportable Glucose 93 mg/dL mg/dL (65-115) Calculated Osmolal ity 287 mOsm/kg mOsm/ kg (285-295) Calcium 8.6 mg/dL mg/dL (8.5-10.5) Discharge Plan Discharge Patient Disposition: Home Clinical Impression: Fall, Laceration Condition: Stable Prescriptions: No Action fluoxetine 20 mg capsule 20 mg PO DAILY@08 RF: 0 cyanocobalamin (vitamin B-12) [Vitamin B-12] 1,000 mcg Tablet 2,000 mcg PO DAILY@08 RF: 0 pantoprazole [Protonix] 40 mg tablet,delayed release (DR/EC) 40 mg PO DAILY@08 RF: 0 multivitamin Tablet 1 tab PO DAILY@08 RF: 0 prednisone 5 mg tablet 5 mg PO DAILY@08 RF: 0 Aspir-81 81 mg Tablet,Delayed Release (Dr/Ec) 81 mg PO DAILY@08 RF: 0 levothyroxine 100 mcg Tablet 100 mcg PO DAILY@08 RF: 0 ferrous sulfate 325 mg (65 mg iron) Tablet 325 mg PO TID@08,14,20 RF: 0 Discharge Orders: Discharge ED (Routine); Ordered 07/06/21 Ordered By: Adi Sarah Referrals: Jesús Garcia MD [Primary Care Provider] - Discharge Diet: Usual diet Discharge Activity: Increase activity as tolerated Patient Instructions: Opioid Safety Activity Restrictions/Additional Instructions: Apply topical zwnm-dyk-afnmepn antibiotic ointment to the wound twice daily. Sutures removed in 5 to 7 days with your primary care doctor return to the ER if you have further problems. Coding Level of Care Code ED [employer] for [employer] 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
--- NOTE | 2021-07-06 06:27 | XRR_ITS ---
PROCEDURE INFORMATION: Exam: XR Cervical Spine Exam date and time: 07/06/2021 6:27 AM Age: 86 years old Clinical indication: Injury or trauma; Fall; Blunt trauma; Injury details: Fell today TECHNIQUE: Imaging protocol: XR of the cervical spine. Views: 2 or 3 views. COMPARISON: CT cervical spin wo con* [id number] 04/20/2021 3:29 PM FINDINGS: Bones/joints: Degenerative facet arthritis. Degenerative hypertrophic formation most prominent at C5 and C6. Narrowing of cervical interspaces which is most pronounced at C5 and C6. Anterior subluxation C4 on C5. A very subtle lucency at the distal spinous process of C5 is of uncertain etiology. Soft tissues: Unremarkable. XR/XR cervical spine 3V* [id number] IMPRESSION: 1. Anterior subluxation C4 on C5. Exact etiology or stability assessment could not be assessed. CT would yield a higher level of diagnostic sensitivity for subtle abnormality. 2. Degenerative changes cervical spine. 3. Nonspecific and indeterminate small lucency at the spinous process posteriorly at C5. In the setting of trauma, consider CT of the cervical spine.
[2021-07-06] MEDS: tetanus-diphtheria tox (adult) 0.5 mL SDV IM (06:59)
[2021-07-06 07:11] LABS: Basophils # 0.1 10^3/uL (0.0-0.1); Basophils % 1.1 %; Eosinophils # 0.3 10^3/uL (0.0-0.8); Eosinophils % 4.2 %; Hematocrit 39.1 % (37.0-47.0); Hemoglobin 12.5 g/dL (11.5-15.3); Lymphocytes # 1.7 10^3/uL (0.8-4.8); Lymphocytes % 25.2 %; Mean Corpuscular Hemoglobin 30.6 pg (28.0-34.0); Mean Corpuscular Volume 95.8 fl (81-99); Mean Platelet Volume 11.2 fL (7.4-10.4); Monocytes # 0.7 10^3/uL (0.2-0.9); Monocytes % 10.2 %; Neutrophils # 3.89 10^3/uL (1.8-7.7); Nucleated Red Blood Cells % 0 %; Platelet Count 196 10^3/cmm (130-400); Red Blood Count 4.08 10^6/uL (4.1-5.3); Red Cell Distribution Width 14.1 % (12.1-15.1); White Blood Count 6.6 10^3/uL (4.0-10.0)
[2021-07-06 07:31] LABS: Blood Urea Nitrogen 17 mg/dL (8-23); Calcium 8.6 mg/dL (8.5-10.5); Carbon Dioxide 23 mmol/L (22-29); Chloride 102 mmol/L (98-107); Glucose 93 mg/dL (65-115); Osmolality Calculated 287 mOsm/kg (285-295); Sodium 138 mmol/L (136-145)
--- NOTE | 2021-07-06 07:43 | PC.PHAR ---
pt is from [facility] medications entered are meds that were on the medication mar from [facility]
--- NOTE | 2021-07-06 07:50 | CT_ITS ---
WS: [id number] CT CERVICAL SPINE HISTORY: trauma TECHNIQUE: Contiguous 2.5 mm axial imaging performed through the entire cervical spine. Sagittal and coronal reformats also performed. All CT scans at [facility] use at least one of these dose o ptimization techniques: automated exposure control; mA and/or kV adjustment per patient size (include s targeted exams where dose is matched to clinical indication); or iterative reconstruction. DLP: 318.83 mGy.cm COMPARISON: 04/20/2021 C4 anterolisthesis by 2.4 mm is similar to the prior study. Advanced disc space narrowing at C5-6 and C6-7. Craniocervical junction and the predental space are similar to the prior study. No fracture is identified. Lateral masses are aligned. Moderate facet joint disease throughout the cervical spine. No malalignment. No acute fractures. No new disc protrusions are identified. No paravertebral soft tissue abnormalities. The previously described hemorrhage in the soft tissues o f the LEFT supraclavicular region have resolved. Lung apices are clear. CT/CT cervical spin wo con* [id number] IMPRESSION: 1. No acute cervical spine fracture. 2. Stable degenerative changes in the cervical spine since 04/20/2021.
== END 2021-07-06 09:34 | disposition home or self-care (01) ==
PROVIDERS: Emergency Provider Family Medicine; PCP Family Medicine
DX: S01.111A Laceration without foreign body of right eyelid and periocular area, initial encounter (principal); W18.39XA Other fall on same level, initial encounter; Y92.129 Unspecified place in nursing home as the place of occurrence of the external cause; F03.90 Unspecified dementia, unspecified severity, without behavioral disturbance, psychotic disturbance, mood disturbance, and anxiety; I10 Essential (primary) hypertension; E03.9 Hypothyroidism, unspecified; Z86.16 Personal history of COVID-19; Z79.82 Long term (current) use of aspirin; Z23 Encounter for immunization
CPT/HCPCS: 12011; 70450; 72040; 72125; 80048; 85025; 90471; 90714; 99283

== ENCOUNTER 2021-09-12 18:51 | Inpatient (IN) | payer MEDICARE, SELFPAY ==
--- NOTE | 2021-09-12 19:01 | CTR_ITS ---
PROCEDURE INFORMATION: Exam: CT Head Without Contrast Exam date and time: 09/12/2021 8:24 PM Age: 86 years old Clinical indication: Injury or trauma; Fall; Blunt trauma (contusions or hematomas); Consciousness not specified TECHNIQUE: Imaging protocol: Computed tomography of the head without contrast. Radiation optimization: All CT scans at this facility use at least one of these dose optimization techniques: automated exposure control; mA and/or kV adjustment per patient size (includes targeted exams where dose is matched to clinical indication); or iterative reconstruction. COMPARISON: CT head wo con* [id number] 07/06/2021 6:33 AM RADIATION DOSE METRICS: Total DLP (mGy-cm): 990.25 FINDINGS: Brain: No hemorrhage. Moderate diffuse cerebral atrophy and sequela of chronic small vessel ischemic disease. No mass effect. Cerebral ventricles: No ventriculomegaly. Paranasal sinuses: Visualized sinuses are unremarkable. No fluid levels. Mastoid air cells: Visualized mastoid air cells are well aerated. Bones/joints: Unremarkable. No acute fracture. Soft tissues: Unremarkable. CT/CT head wo con* [id number] IMPRESSION: No acute intracranial abnormality.
--- NOTE | 2021-09-12 19:01 | CTR_ITS ---
PROCEDURE INFORMATION: Exam: CT Chest With Contrast; Diagnostic Exam date and time: 09/12/2021 8:36 PM Age: 86 years old Clinical indication: Injury or trauma; Blunt trauma (contusions or hematomas) and sprain or strain; Patient HX: PT had fall today, reports generalized abdominal pain and bilateral posterior rib pain TECHNIQUE: Imaging protocol: Diagnostic computed tomography of the chest with contrast. Radiation optimization: All CT scans at this facility use at least one of these dose optimization techniques: automated exposure control; mA and/or kV adjustment per patient size (includes targeted exams where dose is matched to clinical indication); or iterative reconstruction. Contrast material: VISIPAQUE 320; Contrast volume: 95 ml; Contrast route: INTRAVENOUS (IV); COMPARISON: 1. CT chest abd pel w con* 04/20/2021 4:[address] chest wo con [id number] 12/27/2020 12:24 PM RADIATION DOSE METRICS: Total DLP (mGy-cm): 1005.85 FINDINGS: Tubes, catheters and devices: Numerous right axillary surgical clips incidentally noted. Lungs: Unremarkable. No consolidation. No masses. Pleural spaces: Trace pneumothorax in the right chest. Trace hemothorax in the right chest. Heart: Unremarkable. No cardiomegaly. No pericardial effusion. Aorta: Unremarkable. No aortic aneurysm. Lymph nodes: Unremarkable. No enlarged lymph nodes. Bones/joints: Posterior fractures of right-sided ribs 6, 7, 8. Lateral fractures right-sided ribs 6 and 7 with displacement. Unremarkable thoracic spine. Sternum intact. Soft tissues: Mild intercostal soft tissue hematoma and soft tissue air without active bleeding. Right mastectomy surgical change. PROCEDURE INFORMATION: Exam: CT Abdomen And Pelvis With Contrast Exam date and time: 09/12/2021 8:36 PM Age: 86 years old Clinical indication: Injury or trauma; Blunt trauma (contusions or hematomas) and sprain or strain; Patient HX: PT had fall today, reports generalized abdominal pain and bilateral posterior rib pain TECHNIQUE: Imaging protocol: Computed tomography of the abdomen and pelvis with contrast. Radiation optimization: All CT scans at this facility use at least one of these dose optimization techniques: automated exposure control; mA and/or kV adjustment per patient size (includes targeted exams where dose is matched to clinical indication); or iterative reconstruction. Contrast material: VISIPAQUE 320; Contrast volume: 95 ml; Contrast route: INTRAVENOUS (IV); COMPARISON: 1. CT chest abd pel w con* 04/20/2021 4:[address] chest wo con [id number] 12/27/2020 12:24 PM RADIATION DOSE METRICS: Total DLP (mGy-cm): 1005.85 FINDINGS: Liver: Normal. No mass. Gallbladder and bile ducts: Normal. No calcified stones. No ductal dilation. Pancreas: Normal. No ductal dilation. Spleen: Normal. No splenomegaly. Adrenal glands: Normal. No mass. Kidneys and ureters: Atrophic renal parenchyma. Small simple bilateral renal cortical cysts. No follow-up recommended. No injury. No stones. No hydronephrosis. Stomach and bowel: Diverticulosis coli. No inflammatory bowel wall thickening. Negative for bowel obstruction or perforation. Appendix: No evidence of appendicitis. Intraperitoneal space: Unremarkable. No free air. No significant fluid collection. Vasculature: Unremarkable. No abdominal aortic aneurysm. Lymph nodes: Unremarkable. No enlarged lymph nodes. Urinary bladder: Unremarkable as visualized. Reproductive: Vaginal pessary in place. Atrophic uterus. Unremarkable adnexa. Bones/joints: Moderate severity L2 vertebral body compression fracture. Concavity of superior vertebral endplate with 25% height loss. No retropulsion. Unremarkable lumbar spine alignment. Pre-existing severe disc disease changes of the lower levels. Negative for acute pelvic fracture. Leftward convex lumbar spine scoliosis. Soft tissues: Lumbar paraspinal soft tissues are unremarkable. CT/CT chest abd pel w con* IMPRESSION: 1. Several acute right lateral and posterior rib fractures. 2. Trace right chest hemopneumothorax. IMPRESSION: 1. Negative for acute intra-abdominal injury. 2. L2 vertebral compression fracture. Correlate for focal symptoms. Fracture is age indeterminate by imaging, however is new since 04/20/2021. COMMENTS: Consistent with the [place]'s Incidental Findings Committee white paper (J Am Anna Radiol 2018): Any incidental renal lesion less than 1 cm or classified as too small to characterize, or any incidental cystic renal lesion characterized as simple-appearing, is likely benign. No follow-up imaging is recommended for these lesions per consensus recommendations based on imaging criteria.
--- NOTE | 2021-09-12 19:01 | CTR_ITS ---
PROCEDURE INFORMATION: Exam: CT Cervical Spine Without Contrast Exam date and time: 09/12/2021 8:29 PM Age: 86 years old Clinical indication: Injury or trauma; Fall; Blunt trauma TECHNIQUE: Imaging protocol: Computed tomography images of the cervical spine without contrast. Radiation optimization: All CT scans at this facility use at least one of these dose optimization techniques: automated exposure control; mA and/or kV adjustment per patient size (includes targeted exams where dose is matched to clinical indication); or iterative reconstruction. COMPARISON: CT cervical spin wo con* [id number] 07/06/2021 8:00 AM RADIATION DOSE METRICS: Total DLP (mGy-cm): 247.36 FINDINGS: Bones/joints: No acute fracture. Grade 1 anterolisthesis of C4 on C5. Discs/Spinal canal/Neural foramina: No significant disc protrusion. No severe spinal canal stenosis. Soft tissues: Unremarkable. CT/CT cervical spin wo con* [id number] IMPRESSION: No acute findings.
--- NOTE | 2021-09-12 19:05 | W.ED.FALL ---
HPI - Fall General: Chief Complaint: Fall Stated Complaint: FALL Time Seen by Provider: 09/12/21 18:53 Source: patient and EMS Mode of arrival: EMS Limitations: no limitations History of Present Illness: 86-year-old female is here from group home. States she got up this evening roughly 2 hours ago fell in the bathroom landed on the toilet states she hit her right ribs on the toilet she states she believes she hit her head to scan some slight head neck pain also has right lower rib pain right upper quadrant abdominal pain states pain is sharp in nature much worse with movement improved with rest. Denies any shortness of breath. Associated symptoms-after fall: Reports abdominal pain, chest pain, headache(s) and neck pain Review of Systems Const: Denies: fever(s), chills, body aches or change in appetite Eyes: Denies: blurry vision or eye discomfort ENMT: Denies: throat pain or dental pain Card: Reports: chest pain Resp: Denies: dyspnea GI: Reports: abdominal pain : Denies: dysuria Musc: Reports: neck pain Skin/Breast: Denies: rash Neuro: Reports: headache(s) Psych: Denies: depression Osorio/Lymph: Denies: easy bruising All/Imm: Denies: urticaria PFSH ED PFSH: Medical History Anemia COVID-06 march 2020 Facial hematoma Hypertension Hypothyroidism (acquired) Lower gastrointestinal hemorrhage Syncope Surgical History H/O mastectomy Family History Father CAD (coronary artery disease) Social History Smoking and tobacco status: never smoked Alcohol intake: never Physical Exam Const: COMMON NORMALS: no acute distress, patient oriented x3 and healthy appearing HENMT: COMMON NORMALS: normocephalic; head/scalp not atraumatic (tenderness over right scalp) HEAD & SCALP: normocephalic; not atraumatic (tenderness over right scalp) Eye: COMMON NORMALS: Equal, round and reactive pupils present and EOMs intact bilaterally PUPIL: Yes Equal, round and reactive pupils present Neck/C-Spine: COMMON NORMALS: full ROM and supple Chest: COMMONS NORMALS: normal inspection of the chest OTHER: tender over right chest Resp: COMMON NORMALS: normal respiratory effort, No retractions, No use of accessory muscles and clear to auscultation bilaterally AUSCULTATION: clear to auscultation bilaterally Cardio: COMMON NORMALS: regular rate, regular rhythm and No murmurs present (Cardio) RATE: regular rate RHYTHM: regular rhythm GI: COMMON NORMALS: Normal to inspection, nondistended, normoactive bowel sounds present, Soft to palpation, non-tender and no masses PALPATION: Yes Soft to palpation and Yes Tenderness to palpation present (GI) Details: RUQ Extremity: COMMON NORMALS: normal to inspection and full ROM Neuro: COMMON NORMALS: patient oriented x3, moves all extremities and no focal motor deficits Psych: COMMON NORMALS: mental status grossly normal, Normal thought process present and cooperative THOUGHT PROCESS: Normal thought process present Skin: COMMON NORMALS: no rashes or lesions noted and no wounds GENERAL SKIN EXAM: no rashes or lesions noted Procedures Orthopedic Splinting/Casting Injury #1: Side: right Upper Extremity Injury Location: wrist Upper Extremity Immobilizer: sugar tong splint Additional Comments: Splint placed with no complications neurovascularly intact after splint placement Course Vital Signs: Vital signs: Vital Signs Temperature 98.9 F 09/12/21 19:08 Pulse Rate 60 09/12/21 19:14 Respiratory Rate 18 09/12/21 19:24 Blood Pressure 231/92 09/12/21 19:14 Pulse Oximetry 97 09/12/21 19:24 MDM - Fall Medical Decision Making Patient presents here with right-sided rib fractures very tiny hemopneumothorax from a fall also a right wrist fracture. I spoke to surgeon on-call Dr. Artis who will admit and follow the rib fractures hospitalist also consulted patient is been stable while here. Lab Data : 09/12/21 19:31 09/12/21 19:31 Radiology Impressions Cervical Spine CT 09/12/21 19:01 IMPRESSION: No acute findings. Chest/Abdomen/Pelvis CT 09/12/21 19:01 IMPRESSION: 1. Several acute right lateral and posterior rib fractures. 2. Trace right chest hemopneumothorax. IMPRESSION: 1. Negative for acute intra-abdominal injury. 2. L2 vertebral compression fracture. Correlate for focal symptoms. Fracture is age indeterminate by imaging, however is new since 04/20/2021. COMMENTS: Consistent with the [employer]'s Incidental Findings Committee white paper (J Am Anna Radiol 2018): Any incidental renal lesion less than 1 cm or classified as too small to characterize, or any incidental cystic renal lesion characterized as simple-appearing, is likely benign. No follow-up imaging is recommended for these lesions per consensus recommendations based on imaging criteria. Head CT 09/12/21 19:01 IMPRESSION: No acute intracranial abnormality. Wrist X-Ray 09/12/21 21:34 IMPRESSION: 1. Nondisplaced fracture through the radial styloid process. 2. Additional triquetral avulsion fracture with 5 mm avulsed fragment. Laboratory Results WBC 9.9 10^3/uL (4.0-10.0) 09/12/21 19:31 RBC 4.32 10^6/uL (4.1-5.3) 09/12/21 19:31 Hgb 13.3 g/dL (11.5-15.3) 09/12/21 19: Hct 40.8 % (37.0-47.0) 09/12/21 19:31 MCV 94.4 fl (81-99) 09/12/21 19:31 MCH 30.8 pg (28.0-34.0) 09/12/21 19:31 MCHC 32.6 g/dL (30.0-36.0) 09/12/21 19:31 RDW 13.2 % (12.1-15.1) 09/12/21 19:31 Plt Count 170 10^3/cmm (130-400) 09/12/21 19:31 MPV 11.1 fL (7.4-10.4) H 09/12/21 19:31 Neut % (Auto) 67.1 % 09/12/21 19:31 Lymph % (Auto) 23.5 % 09/12/21 19:31 Vernon % (Auto) 7.4 % 09/12/21 19:31 Eos % (Auto) 0.9 % 09/12/21 19:31 Baso % (Auto) 0.5 % 09/12/21 19:31 Neut # (Auto) 6.67 10^3/uL (1.8-7.7) 09/12/21 19:31 Lymph # (Auto) 2.3 10^3/uL (0.8-4.8) 09/12/21 19:31 Vernon # (Auto) 0.7 10^3/uL (0.2-0.9) 09/12/21 19:31 Eos # (Auto) 0.1 10^3/uL (0.0-0.8) 09/12/21 19:31 Baso # (Auto) 0.1 10^3/uL (0.0-0.1) 09/12/21 19:31 Nucleated RBC % (auto) 0 % 09/12/21 19:31 Nucleated RBCs # 0.0 /100WBC 09/12/21 19:31 Sodium 139 mmol/L (136-145) 09/12/21 19:31 Potassium 3.8 mmol/L (3.5-5.1) 09/12/21 19:31 Chloride 104 mmol/L (98-107) 09/12/21 19:31 Carbon Dioxide 25 mmol/L (22-29) 09/12/21 19:31 Anion Gap 13.8 (5-19) 09/12/21 19:31 BUN 26 mg/dL (8-23) H 09/12/21 19:31 Creatinine 1.0 mg/dL (0.5-0.9) H 09/12/21 19:31 GFR Calculation Not Reportable 09/12/21 19:31 Glucose 118 mg/dL (65-115) H 09/12/21 19:31 Calculated Osmolality 294 mOsm/kg (285-295) 09/12/21 19:31 Calcium 9.4 mg/dL (8.5-10.5) 09/12/21 19:31 Critical Care Time Critical Care Time: Critical Care Time: Yes Total Critical Care Time: 38 Attestation: The high probability of a clinically significant, sudden or life threatening deterioration of the patient's msk system(s) required my full and direct attention, intervention and personal management. The critical care time is as shown. This time is in addition to time spent performing any reported procedures but includes the following: [x] Data and vital sign review and interpretation [x] Patient assessment, examination and intervention [x] Documentation [x] Medication orders and management Discharge Plan Discharge Patient Disposition: Admitted As Inpatient Clinical Impression: Fall, Hemopneumothorax on right, Fracture, ulna, distal Closed rib fracture Qualifiers: Encounter type: initial encounter Rib fracture type: multiple ribs Laterality: right Qualified Code(s): S22.41XA - Multiple fractures of ribs, right side, initial encounter for closed fracture Condition: Stable Coding Level of Care Code 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
[2021-09-12 19:08] VITALS: BP 231/92; PULSE 60; RESP 18; TEMP 37.2; O2SAT 98; BMI 23.3
[2021-09-12 19:14] VITALS: BP 231/92; PULSE 60; RESP 16; O2SAT 95
[2021-09-12 19:24] VITALS: RESP 18; O2SAT 97
[2021-09-12] MEDS: morphine 4 mg/mL SDV 1 mL IVP (19:24)
[2021-09-12] MEDS: ondansetron 2 mg/ML SDV 2 mL 4 MG IVP (19:26)
[2021-09-12 19:38] LABS: Basophils # 0.1 10^3/uL (0.0-0.1); Basophils % 0.5 %; Eosinophils # 0.1 10^3/uL (0.0-0.8); Eosinophils % 0.9 %; Hematocrit 40.8 % (37.0-47.0); Hemoglobin 13.3 g/dL (11.5-15.3); Lymphocytes # 2.3 10^3/uL (0.8-4.8); Lymphocytes % 23.5 %; Mean Corpuscular HGB Conc 32.6 g/dL (30.0-36.0); Mean Corpuscular Hemoglobin 30.8 pg (28.0-34.0); Mean Corpuscular Volume 94.4 fl (81-99); Mean Platelet Volume 11.1 fL (7.4-10.4); Monocytes # 0.7 10^3/uL (0.2-0.9); Monocytes % 7.4 %; Neutrophils # 6.67 10^3/uL (1.8-7.7); Neutrophils % 67.1 %; Nucleated Red Blood Cells % 0 %; Platelet Count 170 10^3/cmm (130-400); Red Blood Count 4.32 10^6/uL (4.1-5.3); Red Cell Distribution Width 13.2 % (12.1-15.1); White Blood Count 9.9 10^3/uL (4.0-10.0)
--- NOTE | 2021-09-12 19:39 | PC.PHAR ---
UNABLE TO REACH TO VERIFY MEDS- PT UNABLE TO VERIFY MEDS WITH PT- MEDICATION VERIFIED BY EXTERNAL MED HISTORY. REFILLS ARE ALL CURRENT.
[2021-09-12 20:01] LABS: Anion Gap 13.8 (5-19); Blood Urea Nitrogen 26 mg/dL (8-23); Calcium 9.4 mg/dL (8.5-10.5); Carbon Dioxide 25 mmol/L (22-29); Chloride 104 mmol/L (98-107); Glucose 118 mg/dL (65-115); Osmolality Calculated 294 mOsm/kg (285-295); Potassium 3.8 mmol/L (3.5-5.1); Sodium 139 mmol/L (136-145)
[2021-09-12] MEDS: iodixanol 320 mg/mL 100mL Btl IV (20:49)
--- NOTE | 2021-09-12 21:34 | XRR_ITS ---
PROCEDURE INFORMATION: Exam: XR Right Wrist Exam date and time: 09/12/2021 9:49 PM Age: 86 years old Clinical indication: Pain; Wrist; Right; Additional info: Fall TECHNIQUE: Imaging protocol: XR Right wrist. Views: 3 or more views. COMPARISON: No relevant prior studies available. FINDINGS: Bones/joints: Nondisplaced fracture through the radial styloid process. There is also intracranial old fracture with the osseous fragment along the dorsal aspect of the wrist measuring 5 mm in size. Moderate DJD of the base of the thumb. Soft tissues: Soft tissue swelling around the wrist. XR/XR wrist RT min 3V* [id number] IMPRESSION: 1. Nondisplaced fracture through the radial styloid process. 2. Additional triquetral avulsion fracture with 5 mm avulsed fragment.
[2021-09-12 22:44] LABS: Thyroid Stimulating Hormone 2.03 uIU/mL (0.27-4.20)
--- NOTE | 2021-09-12 22:54 | PM.CONSULT ---
Providers/Reason For Consult Consulting Physician/Specialty*: Hospitalist Reason for Consult*: Dementia Primary Care Provider: Jesús Garcia MD History of Present Illness History of Present Illness Pleasant 86-year-old lady with history of hypothyroidism, CVA, hypertension, several admissions due to falls, with multiple fractures, reports has very poor balance, lives in assisted living, went to the restroom, and while turning away from the sink lost her balance, falling down try to brace her fall with her right hand, hit her side on the toilet bowl.? No acute abnormality noted on CT head.? CT C-spine without acute findings, CT chest with several acute right lateral and posterior rib fractures.? Trace right chest hemopneumothorax.? CT abdomen pelvis with no acute intra-abdominal injury, L2 vertebral compression fracture of indeterminate age is noted. She reports has been having some back pain over the last month or longer. Right wrist x-ray with nondisplaced fracture through radial styloid process, additional triquetral avulsion fracture with 5 mm avulsed fragment.? Preparations underway for splinting in ER. ? Noted initially hypertensive in ER, 231/92, with some improvement in blood pressure with treatment of pain, down to 189 systolic. Review of Systems Const: Denies: fever(s), chills, body aches or malaise Eyes: Denies: change in vision or eye redness ENMT: Denies: throat pain, oral sores or ear or mastoid pain Card: Reports: chest pain; Denies: edema, pre-syncope or dyspnea on exertion Resp: Denies: dyspnea, productive cough, change in phlegm color or hemoptysis GI: Denies: abdominal pain, nausea, vomiting, diarrhea, constipation, hematochezia or melena : Denies: flank pain, urinary frequency or hematuria Musc: Reports: back pain; Denies: joint swelling or joint redness Skin/Breast: Denies: rash, sores or new lesions Neuro: Reports: frequent falls and other (Poor balance); Denies: headache(s), numbness in extremities, weakness in extremities, dizziness, confusion or seizure-like activity Endo: Denies: polyuria or polydipsia Osorio/Lymph: Denies: easy bleeding or purpura All/Imm: Denies: urticaria, throat swelling or tongue swelling Medications/Allergies Home Medications Medication Instructions Recorded Confirmed Last Taken Type fluoxetine 20 mg capsule 20 mg PO DAILY@10/23/20 09/12/21 Unknown History cyanocobalamin (vitamin B-12) 2,000 mcg PO DAILY@04/20/21 09/12/21 Unknown History 1,000 mcg tablet (Vitamin B-12) pantoprazole 40 mg tablet,delayed 40 mg PO DAILY@04/20/21 09/12/21 Unknown History release (Protonix) aspirin 81 mg tablet,delayed 81 mg PO DAILY@07/06/21 09/12/21 Unknown History release ferrous sulfate 325 mg (65 mg 325 mg PO TID@08,,07/06/21 09/12/21 Unknown History iron) tablet levothyroxine 100 mcg tablet 100 mcg PO DAILY@07/06/21 09/12/21 Unknown History multivitamin 1 tab PO DAILY@07/06/21 09/12/21 Unknown History prednisone 5 mg tablet 5 mg PO DAILY@07/06/21 09/12/21 Unknown History meclizine 25 mg tablet 25 mg PO Q6H PRN 09/12/21 09/12/21 Unknown History Allergies Allergy/AdvReac Type Severity Reaction Status Date / Time No Known Allergies Allergy Verified 07/06/21 07:42 PFSH Acute PFSH: Medical History Anemia COVID-06 march 2020 Facial hematoma Hypertension Hypothyroidism (acquired) Lower gastrointestinal hemorrhage Syncope Surgical History H/O mastectomy Family History Father CAD (coronary artery disease) Social History Smoking and tobacco status: never smoked Alcohol intake: never Vitals/I&O/Wt Last Vital Signs Temp 98.9 F 09/12/21 19:08 Pulse 60 09/12/21 19:14 Resp 18 09/12/21 19:24 BP 231/92 09/12/21 19:14 Pulse Ox 97 09/12/21 19:24 Weight last 48 hrs Weight 63.503 kg Physical Exam Const: COMMON NORMALS: no acute distress and patient oriented x3 GENERAL APPEARANCE: cooperative and frail appearing ORIENTATION/CONSCIOUSNESS: Yes awake OTHER: ILIAMNA HENMT: COMMON NORMALS: oropharynx normal Neck/C-Spine: COMMON NORMALS: no JVD Chest: OTHER: Pain and tenderness right lower chest Resp: COMMON NORMALS: normal respiratory effort and clear to auscultation bilaterally AUSCULTATION: clear to auscultation bilaterally Cardio: COMMON NORMALS: no JVD, regular rhythm, S1 normal heart sound present, S2 normal heart sound present and No murmurs present (Cardio) RHYTHM: regular rhythm HEART SOUNDS: S1 normal heart sound present and S2 normal heart sound present GI: COMMON NORMALS: Normal to inspection, nondistended, normoactive bowel sounds present, Soft to palpation and non-tender PALPATION: Yes Soft to palpation Extremity: COMMON NORMALS: no joint enlargement and no pedal edema OTHER: Swelling, ecchymosis right wrist Neuro: COMMON NORMALS: patient oriented x3 and moves all extremities Skin: COMMON NORMALS: no rashes or lesions noted GENERAL SKIN EXAM: no rashes or lesions noted Data : 09/12/21 19:31 09/12/21 19:31 A&P Assessment and plan (1) Hemopneumothorax on right: Management as per surgery, trace hemopneumothorax, 2 small at this time to require chest tube.? Repeat chest x-ray.Oxygen support as needed.? Monitor in the hospital.? I-S. Status: Acute (2) Closed rib fracture: As aboveAdditionally Tylenol, [place] as needed for pain management. Status: Acute Qualifiers: Encounter type: initial encounter Laterality: right Rib fracture type: multiple ribs Qualified Code(s): S22.41XA - Multiple fractures of ribs, right side, initial encounter for closed fracture (3) Fracture, ulna, distal: Going to be splinted in ER. Status: Acute (4) Recurrent falls: Looking through the chart she has had at least 2 prior admissions with falls, multiple fractures, reports very poor balance. She reports that she is assisted living resident.? Consideration may need to be given on how to prevent additional falls given she is very high risk of disabling or life-threatening injury. Will assess orthostatics as I do not see these have been checked previously.? Check TSH. ? Consider at least a walker at all times, but may need wheelchair given seriousness of her falls.? Consider moving to halfway. ? She appears to also be on long-term prednisone.? Please confirm with primary clinic the purpose of the steroid.? In case long-term steroid required, consider addition of antiosteoporotic agent. Status: Acute (5) Hypertension: Elevated BP initially, 231/92, improving with pain control.? Systolic down to 189. Continue symptomatic pain management.? Monitor blood pressure. Check orthostatics. Status: Acute Qualifiers: Hypertension type: essential hypertension Qualified Code(s): I10 - Essential (primary) hypertension Plan Reported dementia: Consider referral for neuropsychiatric assessment History of CVA Hypothyroidism: Check TSH AnemiaHistory of COVID-19 Consult Attestations Medical Necessity Statement: Place in observation for monitoring and reassessment after a fall, multiple rib fractures, trace hemopneumothorax, right wrist fracture, recently recurrent falls, disposition planning, hypertension. 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
[2021-09-12 23:11] VITALS: BP 214/105; PULSE 88; RESP 16; O2SAT 95
[2021-09-13 01:24] VITALS: BP 185/84; PULSE 88; RESP 16; O2SAT 95
[2021-09-13] MEDS: labetalol 5 mg/mL SDV 20mL 10 MG IVP (02:42)
[2021-09-13 04:00] VITALS: BP 172/92; PULSE 88; RESP 16; O2SAT 95
[2021-09-13 05:03] VITALS: BP 177/84; PULSE 88; RESP 16; O2SAT 94
--- NOTE | 2021-09-13 06:00 | XR_ITS ---
WS: [id number] Exam: XR chest 1V portable [id number] Date/Time of Exam: 09/13/2021 5:31 AM Reason For Exam: Hypoxia Comparison 04/20/2021. Plaque atelectasis in the left lower lobe. The lungs are otherwise clear. No pneumothorax. No pleural effusion seen. Normal cardiomediastinal silhouette. Surgically absent right breast with surgical cli ps along the right axilla. Bony structures are intact. Mild apical pleural thickening. XR/XR chest 1V portable [id number] IMPRESSION: 1. Subsegmental atelectasis in the left lower lobe. 2. No acute infiltrate or other significant finding.
[2021-09-13 06:16] VITALS: BP 165/82; PULSE 82; RESP 16; O2SAT 93
[2021-09-13 06:26] LABS: Basophils # 0.1 10^3/uL (0.0-0.1); Basophils % 0.5 %; Eosinophils % 0.3 %; Hematocrit 35.6 % (37.0-47.0); Hemoglobin 11.6 g/dL (11.5-15.3); Lymphocytes # 1.5 10^3/uL (0.8-4.8); Lymphocytes % 12.9 %; Mean Corpuscular HGB Conc 32.6 g/dL (30.0-36.0); Mean Corpuscular Hemoglobin 30.9 pg (28.0-34.0); Mean Corpuscular Volume 94.7 fl (81-99); Mean Platelet Volume 11.5 fL (7.4-10.4); Monocytes % 8.3 %; Neutrophils # 8.91 10^3/uL (1.8-7.7); Neutrophils % 77.7 %; Nucleated Red Blood Cells % 0 %; Platelet Count 148 10^3/cmm (130-400); Red Blood Count 3.76 10^6/uL (4.1-5.3); Red Cell Distribution Width 13.2 % (12.1-15.1); White Blood Count 11.5 10^3/uL (4.0-10.0)
[2021-09-13 06:49] LABS: Alanine Aminotransferase 8 U/L (0-33); Albumin Level 3.8 g/dL (3.5-5.2); Alkaline Phosphatase 85 IU/L (35-105); Anion Gap 12.6 (5-19); Aspartate Amino Transferase 16 U/L (0-32); Blood Urea Nitrogen 23 mg/dL (8-23); Calcium 8.9 mg/dL (8.5-10.5); Carbon Dioxide 26 mmol/L (22-29); Chloride 103 mmol/L (98-107); Glucose 135 mg/dL (65-115); Osmolality Calculated 292 mOsm/kg (285-295); Potassium 3.6 mmol/L (3.5-5.1); Sodium 138 mmol/L (136-145); Total Bilirubin 0.3 mg/dL (0.15-1.2); Total Protein 5.8 g/dL (6.6-8.7)
[2021-09-13] MEDS: levothyroxine 100 mcg Tablet PO (07:41)
[2021-09-13] MEDS: multivitamin therapeutic Tablet 1 TAB PO (07:41)
[2021-09-13] MEDS: cyanocobalamin 1,000 mcg Tablet 2000 MCG PO (07:41)
[2021-09-13] MEDS: pantoprazole DR 40 mg Tablet PO (07:42)
[2021-09-13] MEDS: fluoxetine 20 mg Capsule PO (07:42)
[2021-09-13] MEDS: predniSONE 5 mg Tablet PO (07:42)
[2021-09-13] MEDS: ferrous sulfate EC 325 mg Tablet PO (07:48)
[2021-09-13 07:53] VITALS: RESP 17
[2021-09-13] MEDS: oxyCODONE-APAP 5-325 mg Tablet 1 TAB PO (07:53)
--- NOTE | 2021-09-13 08:05 | PC.NURSE ---
Called [facility] and gave patient report to nurse there regarding patient's discharge.
[2021-09-13 08:48] VITALS: BP 172/69; PULSE 73; RESP 17; O2SAT 92
[2021-09-13 08:49] LABS: Folate Level 14.2 ng/mL (4.8-37.3)
--- NOTE | 2021-09-13 09:47 | PC.OT ---
OT EVALUATION ORDERS RECEIVED. PATIENT DISCHARGED BEFORE EVALUATION COULD BE COMPLETED.
[2021-09-13 11:09] LABS: Vitamin B12 > 2000 pg/mL (232-1245)
--- NOTE | 2021-09-13 12:36 | PC.SOCIAL ---
Patient was discharged back to [place] prior to being seen by this RN CM.
--- NOTE | 2021-09-13 16:11 | DCPLANNER ---
Addendum entered by Kendra Tripp 10/26/21 21:18: Patient had a follow up appointment scheduled with ortho - patient did not attend appointment. Addendum entered by Kendra Tripp 09/16/21 07:02: Patient has a follow up appointment scheduled for Monday, September 20, 2021 at 8:[address] Gore at ortho. Clinic will call patient with appointment information. Original Note: manager of engineering had message to schedule a follow up appointment for patient with ortho. manager of engineering sent patients information to ortho front staff thru [employer] task / message system. Patients information will be printed and reviewed. Clinic will call patient with appointment information.
--- NOTE | 2021-09-27 08:09 | PM.SDS ---
Short Stay Summary Providers Date of Admit/Discharge: 09/27/21 Attending Provider: Yaniv Artis MD Primary Care Provider: Jesús Garcia MD Chief Complaint: FALL HPI History of Present Illness Sara Ortiz is a 86 year old female who [facility]. Patient states that she slipped in the bathroom and hit the right side of her chest against the toilet. She denies any loss of consciousness but mainly complains of lower rib pain and abdominal pain. She has full range of movements, denies any loss of consciousness diplopia or amnesia. Review of Systems General: Reports: 10 or more systems reviewed and unremarkable except in HPI and below Home Meds/Allergies Home Medications and Allergies Home Medications Medication Instructions Recorded Confirmed Type fluoxetine 20 mg capsule 20 mg PO DAILY@10/23/20 09/12/21 History cyanocobalamin (vitamin B-12) 2,000 mcg PO DAILY@04/20/21 09/12/21 History 1,000 mcg tablet (Vitamin B-12) pantoprazole 40 mg tablet,delayed 40 mg PO DAILY@04/20/21 09/12/21 History release (Protonix) aspirin 81 mg tablet,delayed 81 mg PO DAILY@07/06/21 09/12/21 History release ferrous sulfate 325 mg (65 mg 325 mg PO TID@08,,07/06/21 09/12/21 History iron) tablet levothyroxine 100 mcg tablet 100 mcg PO DAILY@07/06/21 09/12/21 History multivitamin 1 tab PO DAILY@07/06/21 09/12/21 History prednisone 5 mg tablet 5 mg PO DAILY@07/06/21 09/12/21 History meclizine 25 mg tablet 25 mg PO Q6H PRN 09/12/21 09/12/21 History Allergies Allergy/AdvReac Type Severity Reaction Status Date / Time No Known Allergies Allergy Verified 07/06/21 07:42 PFSH Acute PFSH: Medical History Anemia COVID-06 march 2020 Facial hematoma Hypertension Hypothyroidism (acquired) Lower gastrointestinal hemorrhage Syncope Surgical History H/O mastectomy Family History Father CAD (coronary artery disease) Social History Smoking and tobacco status: never smoked Alcohol intake: never Vitals/I&O/Wt Last Vital Signs Temp 98.9 F 09/12/21 19:08 Pulse 73 09/13/21 08:48 Resp 17 09/13/21 08:48 BP 172/69 09/13/21 08:48 Pulse Ox 92 09/13/21 08:48 Physical Exam Narrative: HEENT: Normocephalic Eye: Sclera /conjunctiva normal Respiratory and chest: Bilateral clear breath sounds on auscultation Cardiovascular: Normal S1 and S2 heart sounds Abdomen: Soft to palpation, tender right upper quadrant and right flank Neurological: Oriented to place person and time Skin: Intact, no lesions appreciated on gross exam Hospital Course Admission Diagnoses Right-sided rib fracture with tiny hemopneumothorax Hospital Course The patient was given the emergency room overnight for observation since she was noted to have a tiny hemopneumothorax with right rib fractures on imaging studies. Follow-up x-ray the following morning showed stable pneumothorax. CT abdomen pelvis showed indeterminate L2 vertebral compression fracture, CT C-spine did not show any acute pathology.Patient also had fracture of her right radial styloid which was splinted. Discharge Summary [facility] after observation overnight of her pneumothorax. SSS Data Data Completed and Pending: Completed Studies During Hospitalization Category Date Time Status CT cervical spin wo con* [id number] Stat Cat Scan 09/12/21 19:[address] chest abd pel w con* Stat Cat Scan 09/12/21 19:[address] head wo con* [id number] Stat Cat Scan 09/12/21 19:01 Completed XR chest 1V taisha ble [id number] Routine Exams 09/13/21 06:00 Completed XR wrist RT min 3 V* [id number] Urgent Exams 09/12/21 21:34 Completed Diagnoses at Discharge Discharge Diagnosis (1) Hemopneumothorax on right: Status: Resolved (2) Closed rib fracture: Status: Acute Qualifiers: Encounter type: initial encounter Laterality: right Rib fracture type: multiple ribs Qualified Code(s): S22.41XA - Multiple fractures of ribs, right side, initial encounter for closed fracture (3) Fracture, ulna, distal: Status: Acute (4) Recurrent falls: Status: Resolved (5) Hypertension: Status: Chronic Qualifiers: Hypertension type: essential hypertension Qualified Code(s): I10 - Essential (primary) hypertension Discharge Plan Discharge Patient Disposition: Home Condition: Stable Prescriptions: New hydrocodone-acetaminophen 5-325 mg tablet 1 tab PO Q6H PRN (Reason: pain) Qty: 20 0RF Continued fluoxetine 20 mg capsule 20 mg PO DAILY@08 0RF cyanocobalamin (vitamin B-12) [Vitamin B-12] 1,000 mcg Tablet 2,000 mcg PO DAILY@08 0RF pantoprazole [Protonix] 40 mg tablet,delayed release (DR/EC) 40 mg PO DAILY@08 0RF multivitamin Tablet 1 tab PO DAILY@08 0RF prednisone 5 mg tablet 5 mg PO DAILY@08 0RF aspirin [Aspir-81] 81 mg Tablet,Delayed Release (Dr/Ec) 81 mg PO DAILY@08 0RF levothyroxine 100 mcg Tablet 100 mcg PO DAILY@08 0RF ferrous sulfate 325 mg (65 mg iron) Tablet 325 mg PO TID@08,14,20 0RF meclizine 25 mg tablet 25 mg PO Q6H PRN (Reason: Dizziness) 0RF Discharge Orders: Discharge Order (Routine); Ordered 09/13/21 Ordered By: Yaniv Artis Referrals: Yaniv Artis MD [Physician] - 2 weeks Jesús Garcia MD [Primary Care Provider] - (PRN) Discharge Diet: Advance as tolerated Discharge Activity: Resume usual activity Patient Instructions: Opioid Safety Attestations Medical Necessity Statement*: Discharge to penitentiary Time Spent in Patient Care*: less than 30 min Status at Discharge: Cognitive status at discharge: cognitively intact, Behavioral status at discharge: cooperative, Quality Metrics Clinical Quality Measures: [ No reported AMI, CVA or VTE this stay] Coding Level of Care Code 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
== END 2021-09-13 08:59 | disposition home or self-care (01) | DRG 200 ==
LOC: ER 09-13 02:14 → ER IP 09-13 03:56
PROVIDERS: Internal Medicine; Admitting Provider Surgery; Emergency Provider Emergency Medicine; PCP Family Medicine; Visit Provider Surgery
DX: S27.2XXA Traumatic hemopneumothorax, initial encounter (principal); S22.41XA Multiple fractures of ribs, right side, initial encounter for closed fracture; S52.511A Displaced fracture of right radial styloid process, initial encounter for closed fracture; W18.30XA Fall on same level, unspecified, initial encounter; I10 Essential (primary) hypertension; Z91.81 History of falling; Z79.52 Long term (current) use of systemic steroids; F03.90 Unspecified dementia, unspecified severity, without behavioral disturbance, psychotic disturbance, mood disturbance, and anxiety; E03.9 Hypothyroidism, unspecified; D64.9 Anemia, unspecified; Z86.16 Personal history of COVID-19; R29.6 Repeated falls
CPT/HCPCS: 70450; 71045; 71260; 72125; 73110; 74177; 80048; 80053; 82607; 82746; 84443; 85025; 96374; 96375; 99285; J2270; J2405; J3490; J7512; Q9967

== ENCOUNTER 2021-11-09 15:31 | Emergency (ER) | payer MEDICARE, SELFPAY ==
[2021-11-09 15:44] VITALS: BP 174/84; PULSE 73; RESP 16; TEMP 37.1; O2SAT 96; BMI 20.7
--- NOTE | 2021-11-09 15:52 | CTR_ITS ---
PROCEDURE INFORMATION: Exam: CT Head Without Contrast Exam date and time: 11/09/2021 4:31 PM Age: 86 years old Clinical indication: Injury or trauma; Work related; Blunt trauma (contusions or hematomas); Injury details: Fall today. Laceration supraorbital RT side TECHNIQUE: Imaging protocol: Computed tomography of the head without contrast. Axial, coronal and sagittal reformatted images were created and reviewed. Radiation optimization: All CT scans at this facility use at least one of these dose optimization techniques: automated exposure control; mA and/or kV adjustment per patient size (includes targeted exams where dose is matched to clinical indication); or iterative reconstruction. COMPARISON: CT head wo con* [id number] 09/12/2021 8:24 PM RADIATION DOSE METRICS: Total DLP (mGy-cm): 854.61 FINDINGS: Brain: Patchy areas of hypoattenuation in the periventricular and subcortical white matter, consistent with chronic small vessel ischemic disease. Focal, well-circumscribed hypodensities in the basal ganglia, consistent with chronic lacunar infarcts. No CT evidence of acute intracranial hemorrhage or acute territorial infarction. No significant mass effect or midline shift. Basal cisterns patent. Cerebral ventricles: Prominence of the cortical sulci, cisterns and ventricular system, consistent with cerebral and cerebellar volume loss. Paranasal sinuses: Mild polypoid mucosal thickening of the ethmoid air cells and paranasal sinuses. Mastoid air cells: Grossly unremarkable. Bones/joints: No acute osseous abnormality. Soft tissues: Small right frontal scalp injury. Vasculature: Calcific atherosclerotic disease in the cavernous internal carotid arteries. CT/CT head wo con* [id number] IMPRESSION: 1. No CT evidence of acute intracranial pathology. 2. Additional findings, as above.
--- NOTE | 2021-11-09 15:52 | CTR_ITS ---
PROCEDURE INFORMATION: Exam: CT Maxillofacial Without Contrast Exam date and time: 11/09/2021 4:35 PM Age: 86 years old Clinical indication: Injury or trauma; Fall; Blunt trauma (contusions or hematomas); Forehead TECHNIQUE: Imaging protocol: Computed tomography images of the face without contrast. Axial, coronal and sagittal reformatted images were created and reviewed. Radiation optimization: All CT scans at this facility use at least one of these dose optimization techniques: automated exposure control; mA and/or kV adjustment per patient size (includes targeted exams where dose is matched to clinical indication); or iterative reconstruction. COMPARISON: CT facial bones wo con* [id number] 10/23/2020 11:09 AM RADIATION DOSE METRICS: Total DLP (mGy-cm): 724.12 FINDINGS: Orbital cavities: Orbits are normal. Globes are unremarkable. Bones/joints: No acute fracture. Paranasal sinuses: Polypoid mucosal thickening of the ethmoid air cells and paranasal sinuses. Soft tissues: Mild left perinasal soft tissue swelling. CT/CT facial bones wo con* [id number] IMPRESSION: 1. No acute facial bone fracture. 2. Additional findings, as above.
--- NOTE | 2021-11-09 15:52 | CTR_ITS ---
PROCEDURE INFORMATION: Exam: CT Cervical Spine Without Contrast Exam date and time: 11/09/2021 4:38 PM Age: 86 years old Clinical indication: Injury or trauma; Fall; Blunt trauma TECHNIQUE: Imaging protocol: Computed tomography images of the cervical spine without contrast. Axial, coronal and sagittal reformatted images were created and reviewed. Radiation optimization: All CT scans at this facility use at least one of these dose optimization techniques: automated exposure control; mA and/or kV adjustment per patient size (includes targeted exams where dose is matched to clinical indication); or iterative reconstruction. COMPARISON: CT cervical spin wo con* [id number] 09/12/2021 8:29 PM RADIATION DOSE METRICS: Total DLP (mGy-cm): 305.1 FINDINGS: Bones/joints: Osteopenia. Mild reversal of the normal cervical lordosis. No CT evidence of acute fracture, dislocation or subluxation. Mild anterolisthesis of C4 on C5 and C7 on T1. Alignment otherwise anatomic. Vertebral body heights maintained. Discs/Spinal canal/Neural foramina: Mild multilevel degenerative changes, characterized by disc space narrowing, osteophytosis and uncovertebral and facet joint hypertrophy. Mild multilevel neural foraminal narrowing. No significant spinal canal stenosis Lungs: Grossly unremarkable. Soft tissues: Grossly unremarkable. CT/CT cervical spin wo con* [id number] IMPRESSION: 1. No CT evidence of acute cervical spine traumatic injury. 2. Additional findings, as above.
--- NOTE | 2021-11-09 16:02 | ED_ITS ---
HPI - Fall General: Chief Complaint: Fall Stated Complaint: fall/ hit head Time Seen by Provider: 11/09/21 15:37 History of Present Illness: Patient comes in with head pain after a fall. States that she was walking to the fridge rater when her foot caught a seam in the floor and she tripped hitting her head. Denies any LOC. Denies other injury. Associated symptoms-after fall: Denies abdominal pain, chest pain, headache(s) or neck pain Review of Systems Const: Denies: fever(s) or body aches Eyes: Denies: change in vision or blurry vision ENMT: Denies: throat pain or odynophagia Card: Denies: chest pain or palpitations Resp: Denies: dyspnea or productive cough GI: Denies: abdominal pain, nausea or vomiting : Denies: flank pain or dysuria Musc: Denies: neck pain or back pain Skin/Breast: Denies: rash or pruritus Neuro: Denies: headache(s) or numbness in extremities Psych: Denies: anxiety or change in appetite Endo: Denies: polyuria or excessive sweating PFSH ED PFSH: Medical History Anemia COVID-06 march 2020 Facial hematoma Hypertension Hypothyroidism (acquired) Lower gastrointestinal hemorrhage Syncope Surgical History H/O mastectomy Family History Father CAD (coronary artery disease) Social History Smoking and tobacco status: never smoked Alcohol intake: never Physical Exam Const: COMMON NORMALS: no acute distress, patient oriented x3, healthy appearing and alert HENMT: COMMON NORMALS: normocephalic HEAD & SCALP: normocephalic OTHER: Abrasion to the right frontal scalp Eye: COMMON NORMALS: Equal, round and reactive pupils present and EOMs intact bilaterally PUPIL: Yes Equal, round and reactive pupils present Neck/C-Spine: COMMON NORMALS: full ROM and supple Resp: COMMON NORMALS: normal respiratory effort, No retractions and No use of accessory muscles Cardio: COMMON NORMALS: regular rate and regular rhythm RATE: regular rate RHYTHM: regular rhythm GI: COMMON NORMALS: Normal to inspection, nondistended, normoactive bowel sounds present, Soft to palpation and non-tender PALPATION: Yes Soft to palpation Back/Pelvis: COMMON NORMALS: thoracic and lumbar spine normal to inspection and no thoracic nor lumbar tenderness Extremity: COMMON NORMALS: normal to inspection and full ROM Neuro: COMMON NORMALS: patient oriented x3 SENSORIUM/ORIENTATION: Yes alert Psych: COMMON NORMALS: mental status grossly normal and cooperative Skin: COMMON NORMALS: no rashes or lesions noted and no wounds GENERAL SKIN EXAM: no rashes or lesions noted Course Vital Signs: Vital signs: Vital Signs Temperature 98.7 F 11/09/21 15:44 Pulse Rate 73 11/09/21 15:44 Respiratory Rate 16 11/09/21 15:44 Blood Pressure 174/84 11/09/21 15:44 Pulse Oximetry 96 11/09/21 15:44 MDM - Fall Medical Decision Making Patient comes in with head pain after a fall. States that she was walking to the fridge rater when her foot caught a seam in the floor and she tripped hitting her head. Denies any LOC. Denies other injury. Will check CT scan and reassess. On reassessment I talked to the patient about the test results. Will discharge home at this time with precautions return for worsening or changing symptoms. Lab Data Radiology Impressions Cervical Spine CT 11/09/21 15:[address]: [address] evidence of acute cervical spine traumatic injury. 2. Additional findings, as above. Face CT 11/09/21 15:52 IMPRESSION: 1. No acute facial bone fracture. 2. Additional findings, as above. Head CT 11/09/21 15:52 IMPRESSION: 1. No CT evidence of acute intracranial pathology. 2. Additional findings, as above. Discharge Plan Discharge Patient Disposition: Home Clinical Impression: Abrasion Condition: Stable Prescriptions: No Action fluoxetine 20 mg capsule 20 mg PO DAILY@08 0RF cyanocobalamin (vitamin B-12) [Vitamin B-12] 1,000 mcg Tablet 2,000 mcg PO DAILY@08 0RF pantoprazole [Protonix] 40 mg tablet,delayed release (DR/EC) 40 mg PO DAILY@08 0RF multivitamin Tablet 1 tab PO DAILY@08 0RF prednisone 5 mg tablet 5 mg PO DAILY@08 0RF aspirin [Aspir-81] 81 mg Tablet,Delayed Release (Dr/Ec) 81 mg PO DAILY@08 0RF levothyroxine 100 mcg Tablet 100 mcg PO DAILY@08 0RF ferrous sulfate 325 mg (65 mg iron) Tablet 325 mg PO TID@08,14,20 0RF meclizine 25 mg tablet 25 mg PO Q6H PRN (Reason: Dizziness) 0RF hydrocodone-acetaminophen 5-325 mg tablet 1 tab PO Q6H PRN (Reason: pain) Qty: 20 0RF Discharge Orders: Discharge ED (Routine); Ordered 11/09/21 Ordered By: Mino Chatterjee Referrals: Jesús Garcia MD [Primary Care Provider] - Coding Level of Care Code 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
== END 2021-11-09 18:06 | disposition home or self-care (01) ==
PROVIDERS: Emergency Provider Emergency Medicine; PCP Family Medicine
DX: S00.01XA Abrasion of scalp, initial encounter (principal); W01.0XXA Fall on same level from slipping, tripping and stumbling without subsequent striking against object, initial encounter
CPT/HCPCS: 70450; 70486; 72125; 99283

== ENCOUNTER 2021-11-10 00:44 | Emergency (ER) | payer MEDICARE, SELFPAY ==
[2021-11-10 00:46] VITALS: BP 208/102; PULSE 88; RESP 18; TEMP 36.7; O2SAT 93; BMI 19.1
--- NOTE | 2021-11-10 00:48 | CTR_ITS ---
PROCEDURE INFORMATION: Exam: CT Head Without Contrast Exam date and time: 11/10/2021 1:05 AM Age: 86 years old Clinical indication: Altered mental status/memory loss; Confusion or disorientation; Patient HX: Patient sustained fall yesterday. prison states patient is now acting more confused. Lac to RT eyebrow. ; Additional info: AMS TECHNIQUE: Imaging protocol: Computed tomography of the head without contrast. Radiation optimization: All CT scans at this facility use at least one of these dose optimization techniques: automated exposure control; mA and/or kV adjustment per patient size (includes targeted exams where dose is matched to clinical indication); or iterative reconstruction. COMPARISON: CT head wo con* [id number] 11/09/2021 4:31 PM RADIATION DOSE METRICS: Total DLP (mGy-cm): 1064.02 FINDINGS: Brain: No acute intracranial hemorrhage or mass effect. There is prominent decreased attenuation in the periventricular white matter, likely from microvascular disease. No definite acute infarct by CT. MRI could be more sensitive/specific for detection, as clinically directed. Cerebral ventricles: Ventricle size is normal for age. Paranasal sinuses: Moderate fluid/opacity in the left ethmoid sinus. Mild mucosal thickening/fluid in the maxillary and right ethmoid sinuses. Mastoid air cells: No significant acute finding. Bones/joints: No definite acute skull fracture. Soft tissues: Evidence for mild soft tissue injury/scalp hematoma in the supraorbital regions. Vasculature: Vascular calcifications in the internal carotid arteries. CT/CT head wo con* [id number] IMPRESSION: 1. No acute intracranial hemorrhage or mass effect. 2. Changes of microvascular disease. 3. No definite acute infarct by CT, see above. 4. Other findings discussed above.
--- NOTE | 2021-11-10 00:48 | ECG_ITS ---
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 Measurements Intervals [place] Rate: 87 P: 57 FL: 149 QRS: 0 QRSD: 95 T: 34 QT: 408 QTc: 492 Interpretive Statements SINUS RHYTHM Compared to ECG 04/20/2021 19:07:54 Myocardial infarct finding no longer present Electronically Signed On 11-10-2021 22:25:44 CDT by Maxime Camilo M.D. [email or web address] river oaksCompliance Assuranceohiohealth shel[facility].[employer]/store/NU/[id number] f
--- NOTE | 2021-11-10 00:52 | W.ED.GENADLT ---
HPI - General Adult General: Chief complaint: Fall Stated complaint: ams Time Seen by Provider: 11/10/21 00:48 Source: EMS Mode of arrival: EMS Limitations: altered mental status History of Present Illness: 86-year-old female here from local prison she seen earlier yesterday after a fall and a head injury Per prison tonight she became more altered than her normal and agitated. Patient does have dementia. Here she is awake and alert she will answer some my question she knows her name but does not know the place or time she is not agitated here. Review of Systems General: Reports: ROS unobtainable due to mental status PFS ED PFSH: Medical History Anemia COVID-06 march 2020 Facial hematoma Hypertension Hypothyroidism (acquired) Lower gastrointestinal hemorrhage Syncope Surgical History H/O mastectomy Family History Father CAD (coronary artery disease) Social History Smoking and tobacco status: never smoked Alcohol intake: never Physical Exam Const: COMMON NORMALS: negative for patient oriented x3 HENMT: COMMON NORMALS: normocephalic and atraumatic HEAD & SCALP: normocephalic and atraumatic Eye: COMMON NORMALS: Equal, round and reactive pupils present and EOMs intact bilaterally PUPIL: Yes Equal, round and reactive pupils present Neck/C-Spine: COMMON NORMALS: full ROM and supple Chest: COMMONS NORMALS: normal inspection of the chest and normal palpation of entire chest wall Resp: COMMON NORMALS: normal respiratory effort, No retractions, No use of accessory muscles and clear to auscultation bilaterally AUSCULTATION: clear to auscultation bilaterally Cardio: COMMON NORMALS: regular rate, regular rhythm and No murmurs present (Cardio) RATE: regular rate RHYTHM: regular rhythm GI: COMMON NORMALS: Normal to inspection, nondistended, normoactive bowel sounds present, Soft to palpation, non-tender and no masses PALPATION: Yes Soft to palpation Extremity: COMMON NORMALS: normal to inspection and full ROM Neuro: COMMON NORMALS: moves all extremities and no focal motor deficits; negative for patient oriented x3 Psych: COMMON NORMALS: mental status grossly normal, Normal thought process present and cooperative THOUGHT PROCESS: Normal thought process present Skin: COMMON NORMALS: no rashes or lesions noted and no wounds GENERAL SKIN EXAM: no rashes or lesions noted Course Vital Signs: Vital signs: Vital Signs Temperature 98.1 F 11/10/21 00:46 Pulse Rate 72 11/10/21 01:59 Respiratory Rate 20 H 11/10/21 01:59 Blood Pressure 217/93 11/10/21 01:59 Pulse Oximetry 94 11/10/21 01:59 MDM - General Adult Medical Decision Making Patient presents here with altered mental status I believe she is likely at her baseline Lab Data : 11/10/21 01:18 11/10/21 01:[address] 11/10/21 00:48 IMPRESSION: 1. No acute intracranial hemorrhage or mass effect. 2. Changes of microvascular disease. 3. No definite acute infarct by CT, see above. 4. Other findings discussed above. Laboratory Results WBC 8.4 10^3/uL (4.0-10.0) 11/10/21 01:18 RBC 4.04 10^6/uL (4.1-5.3) L 11/10/21 01:18 Hgb 12.5 g/dL (11.5-15.3) 11/10/21 01:18 Hct 37.7 % (37.0-47.0) 11/10/21 01:18 MCV 93.3 fl (81-99) 11/10/21 01:18 MCH 30.9 pg (28.0-34.0) 11/10/21 01:18 MCHC 33.2 g/dL (30.0-36.0) 11/10/21 01:18 RDW 13.2 % (12.1-15.1) 11/10/21 01:18 Plt Count 188 10^3/cmm (130-400) 11/10/21 01:18 MPV 11.2 fL (7.4-10.4) H 11/10/21 01:18 Neut % (Auto) 59.4 % 11/10/21 01:18 Lymph % (Auto) 31.0 % 11/10/21 01:18 [place] % (Auto) 7.8 % 11/10/21 01:18 Eos % (Auto) 1.2 % 11/10/21 01:18 Baso % (Auto) 0.4 % 11/10/21 01:18 Neut # (Auto) 4.97 10^3/uL (1.8-7.7) 11/10/21 01:18 Lymph # (Auto) 2.6 10^3/uL (0.8-4.8) 11/10/21 01:18 [place] # (Auto) 0.7 10^3/uL (0.2-0.9) 11/10/21 01:18 Eos # (Auto) 0.1 10^3/uL (0.0-0.8) 11/10/21 01:18 Baso # (Auto) 0.0 10^3/uL (0.0-0.1) 11/10/21 01:18 Nucleated RBC % (auto) 0 % 11/10/21 01:18 Nucleated RBCs # 0.0 /100WBC 11/10/21 01:18 Sodium 139 mmol/L (136-145) 11/10/21 01:18 Potassium 3.4 mmol/L (3.5-5.1) L 11/10/21 01:18 Chloride 102 mmol/L (98-107) 11/10/21 01:18 Carbon Dioxide 24 mmol/L (22-29) 11/10/21 01:18 Anion Gap 16.4 (5-19) 11/10/21 01:18 BUN 27 mg/dL (8-23) H 11/10/21 01:18 Creatinine 1.4 mg/dL (0.5-0.9) H 11/10/21 01:18 GFR Calculation Not Reportable 11/10/21 01:18 Glucose 98 mg/dL (65-115) 11/10/21 01:18 Calculated Osmolality 293 mOsm/kg (285-295) 11/10/21 01:18 Calcium 9.2 mg/dL (8.5-10.5) 11/10/21 01:18 Total Bilirubin 0.2 mg/dL (0.15-1.2) 11/10/21 01:18 AST 21 U/L (0-32) 11/10/21 01:18 ALT 12 U/L (0-33) 11/10/21 01:18 Alkaline Phosphatase 94 IU/L (35-105) 11/10/21 01:18 Total Protein 6.8 g/dL (6.6-8.7) 11/10/21 01:18 Albumin 4.0 g/dL (3.5-5.2) 11/10/21 01:18 Globulin 2.8 g/dL (1.3-4.6) 11/10/21 01:18 Urine Color Yellow (Yellow) 11/10/21 01:45 Urine Appearance Cloudy (CLEAR) 11/10/21 01:45 Urine pH 5 (5-7) 11/10/21 01:45 Ur Specific [place] 1.025 (1.005-1.030) 11/10/21 01:45 Urine Protein Neg (Negative) 11/10/21 01:45 Urine Glucose (UA) Norm (Normal) 11/10/21 01:45 Urine Ketones 1+ (Negative) H 11/10/21 01:45 Urine Blood 3+ (Negative) H 11/10/21 01:45 Urine Nitrate Negative (Negative) 11/10/21 01:45 Urine Bilirubin Neg (Negative) 11/10/21 01:45 Urine Urobilinogen Norm mg/dL (Negative) 11/10/21 01:45 Ur Leukocyte Esterase 2+ (Negative) H 11/10/21 01:45 Urine RBC 5-10 /hpf (0-2) H 11/10/21 01:45 Urine WBC 55-80 /hpf (0-5) H 11/10/21 01:45 Ur Squamous Epith Cells 15-25 /hpf (0-5) H 11/10/21 01:45 Amorphous Sediment Not Reportable 11/10/21 01:45 Urine Bacteria 1+ /hpf (NONE) H 11/10/21 01:45 Urine Mucus Trace /hpf 11/10/21 01:45 EKG Data EKG 1: I personally reviewed and interpreted this EKG as follows: EKG interpretation date: 11/10/21 EKG interpretation time: 00:53 Interpretation: Normal sinus rhythm heart rate [address] or T wave normalities QRS 95 QTC 452 Computer generated interpretation: Head CT 11/10/21 00:48 IMPRESSION: 1. No acute intracranial hemorrhage or mass effect. 2. Changes of microvascular disease. 3. No definite acute infarct by CT, see above. 4. Other findings discussed above. Discharge Plan Discharge Patient Disposition: Home Clinical Impression: Altered mental status, Dementia Condition: Stable Prescriptions: No Action fluoxetine 20 mg capsule 20 mg PO DAILY@08 0RF cyanocobalamin (vitamin B-12) [Vitamin B-12] 1,000 mcg Tablet 2,000 mcg PO DAILY@08 0RF pantoprazole [Protonix] 40 mg tablet,delayed release (DR/EC) 40 mg PO DAILY@08 0RF multivitamin Tablet 1 tab PO DAILY@08 0RF prednisone 5 mg tablet 5 mg PO DAILY@08 0RF aspirin [Aspir-81] 81 mg Tablet,Delayed Release (Dr/Ec) 81 mg PO DAILY@08 0RF levothyroxine 100 mcg Tablet 100 mcg PO DAILY@08 0RF ferrous sulfate 325 mg (65 mg iron) Tablet 325 mg PO TID@08,14,20 0RF meclizine 25 mg tablet 25 mg PO Q6H PRN (Reason: Dizziness) 0RF hydrocodone-acetaminophen 5-325 mg tablet 1 tab PO Q6H PRN (Reason: pain) Qty: 20 0RF Discharge Orders: Discharge ED (Routine); Ordered 11/10/21 Ordered By: Laurie Lewis Referrals: Jesús Garcia MD [Primary Care Provider] - 1-3 days Discharge Diet: Advance as tolerated Discharge Activity: Resume usual activity Patient Instructions: Altered Mental Status (ED) Coding Level of Care Code 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
[2021-11-10 01:37] LABS: Basophils % 0.4 %; Eosinophils # 0.1 10^3/uL (0.0-0.8); Eosinophils % 1.2 %; Hematocrit 37.7 % (37.0-47.0); Hemoglobin 12.5 g/dL (11.5-15.3); Lymphocytes # 2.6 10^3/uL (0.8-4.8); Mean Corpuscular HGB Conc 33.2 g/dL (30.0-36.0); Mean Corpuscular Hemoglobin 30.9 pg (28.0-34.0); Mean Corpuscular Volume 93.3 fl (81-99); Mean Platelet Volume 11.2 fL (7.4-10.4); Monocytes # 0.7 10^3/uL (0.2-0.9); Monocytes % 7.8 %; Neutrophils # 4.97 10^3/uL (1.8-7.7); Neutrophils % 59.4 %; Nucleated Red Blood Cells % 0 %; Platelet Count 188 10^3/cmm (130-400); Red Blood Count 4.04 10^6/uL (4.1-5.3); Red Cell Distribution Width 13.2 % (12.1-15.1); White Blood Count 8.4 10^3/uL (4.0-10.0)
[2021-11-10] MEDS: labetalol 5 mg/mL SDV 20mL 10 MG IVP (01:58)
[2021-11-10 01:59] VITALS: BP 217/93; PULSE 72; RESP 20; O2SAT 94
[2021-11-10 02:00] LABS: Alanine Aminotransferase 12 U/L (0-33); Alkaline Phosphatase 94 IU/L (35-105); Blood Urea Nitrogen 27 mg/dL (8-23); Calcium 9.2 mg/dL (8.5-10.5); Carbon Dioxide 24 mmol/L (22-29); Chloride 102 mmol/L (98-107); Globulin 2.8 g/dL (1.3-4.6); Glucose 98 mg/dL (65-115); Osmolality Calculated 293 mOsm/kg (285-295); Sodium 139 mmol/L (136-145); Total Bilirubin 0.2 mg/dL (0.15-1.2); Total Protein 6.8 g/dL (6.6-8.7)
[2021-11-10 02:07] LABS: Bilirubin Urine Neg (Negative); Blood Urine 3+ (Negative); Glucose Urine UA Norm (Normal); Ketones Urine 1+ (Negative); Nitrate Urine Negative (Negative); Protein Urine Neg (Negative); Specific Gravity, Urine 1.025 (1.005-1.030); Urine Appearance Cloudy (CLEAR); Urine Color Yellow (Yellow); pH Urine 5 (5-7)
[2021-11-10 02:08] LABS: Add Urine Microscopic? YES; Leukocyte Esterase Urine 2+ (Negative); Urobilinogen Urine Norm (Negative)
[2021-11-10 02:13] LABS: Add Urine Culture? No; Bacteria Urine 1+ /hpf; Mucus Urine TRACE /hpf; Squamous Epithelial Cell Urine 15-25 /hpf (0-5); WBC Urine 55-80 /hpf (0-5)
[2021-11-10 02:35] LABS: Anion Gap 16.4 (5-19); Aspartate Amino Transferase 21 U/L (0-32); Potassium 3.4 mmol/L (3.5-5.1)
[2021-11-10] MEDS: hyDRALAzine 20 mg/mL INJ 1 mL 10 MG IVP (03:37)
[2021-11-10 03:39] VITALS: BP 195/96; PULSE 68; RESP 16; O2SAT 93
[2021-11-10 03:59] VITALS: BP 178/88; PULSE 84; RESP 16; O2SAT 94
[2021-11-10 04:48] VITALS: BP 164/86; PULSE 76; RESP 16; O2SAT 93
== END 2021-11-10 04:50 | disposition home or self-care (01) ==
PROVIDERS: Emergency Provider Emergency Medicine; PCP Family Medicine
DX: F03.90 Unspecified dementia, unspecified severity, without behavioral disturbance, psychotic disturbance, mood disturbance, and anxiety (principal); I10 Essential (primary) hypertension; E03.9 Hypothyroidism, unspecified; R41.82 Altered mental status, unspecified
CPT/HCPCS: 70450; 80053; 81001; 85025; 93005; 96374; 96375; 99284; J0360; J3490

== ENCOUNTER 2021-12-16 19:14 | Inpatient (IN) | payer MEDICARE, SELFPAY ==
[2021-12-16 19:21] VITALS: BP 203/129; PULSE 107; RESP 21; TEMP 37.4; O2SAT 99
--- NOTE | 2021-12-16 19:21 | XRR_ITS ---
PROCEDURE INFORMATION: Exam: XR Chest Exam date and time: 12/16/2021 7:38 PM Age: 86 years old Clinical indication: Shortness of breath; Additional info: SOB TECHNIQUE: Imaging protocol: Radiologic exam of the chest. Views: 1 view. COMPARISON: CR XR chest 1V portable [id number] 09/13/2021 5:36 AM FINDINGS: Lungs: No consolidative pulmonary infiltrates are noted. Pleural spaces: No pleural effusion. No pneumothorax. Heart/Mediastinum: No cardiomegaly. Bones/joints: Unremarkable. Soft tissues: Surgical clips right axilla. Previous right mastectomy noted. XR/XR chest 1V portable [id number] IMPRESSION: No acute abnormality demonstrated.
--- NOTE | 2021-12-16 19:21 | CTR_ITS ---
PROCEDURE INFORMATION: Exam: CT Head Without Contrast Exam date and time: 12/16/2021 8:11 PM Age: 86 years old Clinical indication: Altered mental status/memory loss; Additional info: Symptoms of acute stroke TECHNIQUE: Imaging protocol: Computed tomography of the head without contrast. Radiation optimization: All CT scans at this facility use at least one of these dose optimization techniques: automated exposure control; mA and/or kV adjustment per patient size (includes targeted exams where dose is matched to clinical indication); or iterative reconstruction. COMPARISON: CT head wo con* [id number] 12/15/2021 12:06 PM RADIATION DOSE METRICS: Total DLP (mGy-cm): 848.4 FINDINGS: Limitations: The study is limited by mild patient motion artifact. Brain: Age related parenchymal volume loss noted. There is decreased attenuation of the periventricular white matter, consistent with chronic microangiopathic white matter disease. No parenchymal edema identified. No intracranial hemorrhage noted. Cerebral ventricles: No ventriculomegaly. Paranasal sinuses: Visualized sinuses are unremarkable. No fluid levels. Mastoid air cells: Unremarkable as visualized. No mastoid effusion. Bones/joints: Unremarkable. No acute fracture. Soft tissues: Unremarkable. CT/CT head wo con* [id number] IMPRESSION: 1. The study is limited by mild patient motion artifact. 2. No acute intracranial abnormality demonstrated. 3. There is no interval change from the prior examination.
--- NOTE | 2021-12-16 19:21 | ECG_ITS ---
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 Measurements Intervals [place] Rate: 108 P: 52 VA: 140 QRS: 21 QRSD: 87 T: 64 QT: 354 QTc: 475 Interpretive Statements SINUS TACHYCARDIA POSSIBLE LEFT ATRIAL ENLARGEMENT [-0.1mV P-WAVE IN V1/V2] ABNORMAL RHYTHM ECG Compared to ECG 11/10/2021 00:53:29 Sinus rhythm no longer present Electronically Signed On 12-17-2021 12:25:07 CDT by Trpi Bailey M.D. [id number] f
[2021-12-16] MEDS: naloxone 0.4 mg/ml SDV IVP (19:28)
[2021-12-16 19:37] LABS: ABG PCO2 43.9 mmHg (35-45); ABG PH Result 7.39 (7.35-7.45); Arterial Blood Gas Hematocrit 42.4 % (37-47); Base Excess ABG 0.8 mmol/L (-2.0-2.0); Blood Gas Sample Site Radial, right; Blood Gas Sample Type Arterial; HCO3 ABG 26.3 mmol/L (22-26); PO2 ABG 65.6 mmHg (80.0-100.0)
[2021-12-16 19:44] LABS: Basophils # 0.1 10^3/uL (0.0-0.1); Basophils % 0.5 %; Eosinophils # 0.1 10^3/uL (0.0-0.8); Eosinophils % 0.5 %; Hematocrit 40.7 % (37.0-47.0); Hemoglobin 13.7 g/dL (11.5-15.3); Lymphocytes # 2.2 10^3/uL (0.8-4.8); Lymphocytes % 16.8 %; Mean Corpuscular HGB Conc 33.7 g/dL (30.0-36.0); Mean Corpuscular Hemoglobin 30.9 pg (28.0-34.0); Mean Corpuscular Volume 91.7 fl (81-99); Mean Platelet Volume 11.4 fL (7.4-10.4); Monocytes # 1.3 10^3/uL (0.2-0.9); Monocytes % 10.2 %; Neutrophils # 9.22 10^3/uL (1.8-7.7); Neutrophils % 71.6 %; Nucleated Red Blood Cells % 0 %; Platelet Count 181 10^3/cmm (130-400); Red Blood Count 4.44 10^6/uL (4.1-5.3); Red Cell Distribution Width 13.5 % (12.1-15.1); White Blood Count 12.9 10^3/uL (4.0-10.0)
[2021-12-16 19:58] LABS: INR 1.07 (0.8-1.2); Partial Thromboplastin Time 30.5 SECONDS (23.9-36.7)
[2021-12-16 20:07] LABS: Alanine Aminotransferase 13 U/L (0-33); Albumin Level 4.1 g/dL (3.5-5.2); Alkaline Phosphatase 105 IU/L (35-105); Amphetamines Screen Urine Negative (Negative); Anion Gap 16.5 (5-19); Aspartate Amino Transferase 28 U/L (0-32); Barbiturates Screen Urine Negative (Negative); Benzodiazepines Screen Urine Negative (Negative); Blood Urea Nitrogen 24 mg/dL (8-23); Calcium 9.2 mg/dL (8.5-10.5); Carbon Dioxide 24 mmol/L (22-29); Chloride 98 mmol/L (98-107); Cocaine Screen Urine Negative (Negative); Globulin 2.6 g/dL (1.3-4.6); Glucose 108 mg/dL (65-115); Opiate Screen Urine Negative (Negative); Osmolality Calculated 285 mOsm/kg (285-295); PCP Screen Urine Negative (Negative); Potassium 3.5 mmol/L (3.5-5.1); Sodium 135 mmol/L (136-145); THC Screen Urine Negative (Negative); Total Bilirubin 0.4 mg/dL (0.15-1.2); Total Protein 6.7 g/dL (6.6-8.7)
[2021-12-16 20:08] LABS: Add Urine Microscopic? YES; Bilirubin Urine 1+ (Negative); Blood Urine Neg (Negative); Glucose Urine UA Norm (Normal); Ketones Urine Trace (Negative); Leukocyte Esterase Urine Negative (Negative); Nitrate Urine Negative (Negative); Protein Urine 1+ (Negative); RBC Urine 0-4 /hpf (0-2); Urine Appearance Clear (CLEAR); Urine Color Yellow (Yellow); Urobilinogen Urine Norm (Negative); WBC Urine 0-4 /hpf (0-5); pH Urine 5 (5-7)
[2021-12-16 20:09] LABS: Add Urine Culture? No; Alcohol Level < 10 mg/dL (0-10); Bacteria Urine TRACE /hpf; Transitional Epi Cells Urine 0-4 /hpf
[2021-12-16] MEDS: nitroglycerin 1 gm/inch oint Pkt 1.5 INCH TOPICAL (20:45)
[2021-12-16] MEDS: labetalol 5 mg/mL SDV 20mL 10 MG IVP ×2 (20:45→22:01)
[2021-12-16 23:39] VITALS: BP 169/115; PULSE 89; RESP 20; O2SAT 95
[2021-12-16 23:55] VITALS: BP 178/104; PULSE 90; RESP 16; TEMP 37.2; O2SAT 96
[2021-12-17] VITALS (17 sets, daily range): BP systolic 152–185; BP diastolic 71–105; PULSE 72–92; RESP 15–18; TEMP 36.6–37.3; O2SAT 90–98
[2021-12-17 02:42] LABS: Adenovirus Not Detected (NOT DETECT); Chlamydia Pneumoniae Not Detected (NOT DETECT); Coronavirus 229E,HKU1,NL63,OC4 Not Detected (NOT DETECT); Human Metapneumovirus Not Detected (NOT DETECT); Human Rhinovirus/Enterovirus Not Detected (NOT DETECT); Influenza A Not Detected (NOT DETECT); Influenza A H1 Not Detected (NOT DETECT); Influenza A H1-2009 Not Detected (NOT DETECT); Influenza A H3 Not Detected (NOT DETECT); Influenza B Not Detected (NOT DETECT); Mycoplasma Pneumoniae Not Detected (NOT DETECT); Parainfluenza Virus Type 1 Not Detected (NOT DETECT); Parainfluenza Virus Type 2 Not Detected (NOT DETECT); Parainfluenza Virus Type 3 Not Detected (NOT DETECT); Parainfluenza Virus Type 4 Not Detected (NOT DETECT); Respiratory Syncytial Virus A Not Detected (NOT DETECT); Respiratory Syncytial Virus B Not Detected (NOT DETECT); SARS-COV-2 Not Detected (NOT DETECT)
--- NOTE | 2021-12-17 04:00 | XRR_ITS ---
PROCEDURE INFORMATION: Exam: XR Chest Exam date and time: 12/17/2021 4:21 AM Age: 86 years old Clinical indication: Other: Aspiration; Additional info: F/up for aspiration TECHNIQUE: Imaging protocol: Radiologic exam of the chest. Views: 1 view. COMPARISON: CR (CHEST, ) 12/16/2021 7:38 PM FINDINGS: Lungs: No consolidation. Pleural spaces: Unremarkable. No pleural effusion. No pneumothorax. Heart/Mediastinum: No cardiomegaly. Bones/joints: Chronic right rib fractures. Soft tissues: Surgical clips noted in the right axilla. Previous right mastectomy noted. XR/XR chest 1V portable [id number] IMPRESSION: No acute findings.
[2021-12-17] MEDS: hyDRALAzine 20 mg/mL INJ 1 mL 10 MG IVP (04:08)
[2021-12-17] MEDS: sodium chloride 0.9% 1,000 ML 50 ML IV ×2 (04:10→23:06)
[2021-12-17] MEDS: cefTRIAXone 1,000 MG in sodium chloride 0.9% (plus) 50 ML 100 MG IV (04:10)
[2021-12-17] MEDS: metroNIDAZOLE IV 500 MG/100 ML PREMIX 100 MG IV (04:55)
[2021-12-17 05:55] LABS: Alanine Aminotransferase 11 U/L (0-33); Albumin Level 3.7 g/dL (3.5-5.2); Alkaline Phosphatase 97 IU/L (35-105); Anion Gap 16.3 (5-19); Aspartate Amino Transferase 24 U/L (0-32); Blood Urea Nitrogen 24 mg/dL (8-23); Calcium 8.6 mg/dL (8.5-10.5); Carbon Dioxide 23 mmol/L (22-29); Chloride 103 mmol/L (98-107); Globulin 2.7 g/dL (1.3-4.6); Glucose 132 mg/dL (65-115); Osmolality Calculated 294 mOsm/kg (285-295); Potassium 3.3 mmol/L (3.5-5.1); Sodium 139 mmol/L (136-145); Total Bilirubin 0.4 mg/dL (0.15-1.2); Total Protein 6.4 g/dL (6.6-8.7)
[2021-12-17 06:01] LABS: Thyroid Stimulating Hormone 2.14 uIU/mL (0.27-4.20)
--- NOTE | 2021-12-17 06:02 | PM.HP ---
Providers/Chief Complaint Admitting Physician: Rupa Kim MD Primary Care Provider: Jesús Garcia MD Chief Complaint: ams/ resp distress History of Present Illness Sara Ortiz is a 86 year old female resident at [facility], recently admitted here for multiple falls and hemothorax, presented to the ER yesterday for another fall. She returns today with altered mental status. Historical details are not currently available at this time as patient is unable to participate in history taking. Voicemail has been left at [facility] to get some extra information. Per EMS report and discussion with ER physician, patient presented here with severely depressed mental status and a new oxygen requirement. She was saturating in the 80s on room air and currently on supplemental O2 at 3 L/min. She was additionally noted to have residue of medication around her lips, suspected to have additionally aspirated. CT of the head was performed to exclude any intracranial bleeding given history of recurrent falls most recent as yesterday. No acute intracranial abnormality was identified. She was additionally hypertensive with blood pressure systolic of 220 upon admission. At the time of my assessment she is able to open her eyes to calling name, is moving bilateral upper extremities while laying in bed. Weakly appears to respond to questions, though words do not make sense. She does follow instructions to move her arms, open her eyes, and to stop pulling at her Garvey catheter. Review of Systems General: Reports: ROS unobtainable due to medical condition Medications/Allergies Home Medications Medication Instructions Recorded Confirmed Last Taken Type fluoxetine 20 mg capsule 20 mg PO DAILY@10/23/20 12/15/21 12/15/21 History cyanocobalamin (vitamin B-12) 2,000 mcg PO DAILY@04/20/21 12/15/21 12/15/21 History 1,000 mcg tablet (Vitamin B-12) pantoprazole 40 mg tablet,delayed 40 mg PO DAILY@04/20/21 12/15/21 12/15/21 History release (Protonix) aspirin 81 mg tablet,delayed 81 mg PO DAILY@07/06/21 12/15/21 12/15/21 History release ferrous sulfate 325 mg (65 mg 325 mg PO TID@08,14,20 07/06/21 12/15/21 12/15/21 History iron) tablet levothyroxine 100 mcg tablet 100 mcg PO DAILY@07/06/21 12/15/21 12/15/21 History prednisone 5 mg tablet 5 mg PO DAILY@07/06/21 12/15/21 12/15/21 History hydrocodone 5 mg-acetaminophen 325 1 tab PO Q6H PRN #20 tab 09/13/21 12/15/21 Unknown Rx mg tablet clonazepam 0.5 mg tablet 0.5 mg PO BID 12/15/21 12/15/21 12/15/21 History guaifenesin 1,200 mg tablet, 1,200 mg PO BID 12/15/21 12/15/21 12/15/21 History extended release 12 hr (Mucinex) Allergies Allergy/AdvReac Type Severity Reaction Status Date / Time No Known Allergies Allergy Verified 12/15/21 13:42 PFSH Acute PFSH: Medical History Anemia COVID-06 march 2020 Facial hematoma Hypertension Hypothyroidism (acquired) Lower gastrointestinal hemorrhage Syncope Surgical History H/O mastectomy Family History Father CAD (coronary artery disease) Social History Smoking and tobacco status: never smoked Alcohol intake: never Vitals/I&O/Wt Last Vital Signs Temp 98.3 F 12/17/21 01:32 Pulse 92 12/17/21 04:58 Resp 15 12/17/21 01:32 BP 185/88 12/17/21 01:32 Pulse Ox 93 12/17/21 01:32 12/16/21 12/16/21 12/17/21 14:59 22:59 06:59 Intake Total 150 / 150 Balance 150 / 150 Physical Exam Narrative: General: ill appearing, disoriemnted, attempts to answer questions however speech is weak, incoherent, lips crusted with pill residue, appears dehydrated. Multiple bruises around B/L eyes, stitches on upper lip, clotted blood over left eyebrow. HEENT: PERRLA, pupils bilaterally equal and reactive CVS: S1-S2 regular, no murmurs, no tachycardia, no gallops, no rubs Abdomen: Soft, nontender, no organomegaly, bowel sounds present Neuro: as above Data : 12/16/21 19:35 12/17/21 05:02 Other Labs: CXR: no gross infiltrates. Old fractured ribs per my read A&P Assessment and plan (1) Hypertension: Elevated systolic blood pressure of 220 upon admission Labetalol 10 mg IV push given with blood pressure improved to 158/71 mmHg. Status: Chronic Qualifiers: Hypertension type: essential hypertension Qualified Code(s): I10 - Essential (primary) hypertension (2) Altered mental status: Altered mental status, may be related to metabolic encephalopathy from possible aspiration, dehydration versus hypertensive encephalopathy. Gentle IV hydration with normal saline at 50 cc an hour. IV ceftriaxone and Flagyl for possible aspiration into airway. As needed hydralazine and labetalol for blood pressure control. Swallow assessment in the morning. Once able to swallow consistently can add antihypertensives. Check TSH levels. CT head today without evidence of acute CVA. No traumatic bleeding from recent fall. UA does not appear to be consistent with a UTI Status: Acute (3) Aspiration into airway: This is a presumed diagnosis at this time. Pill residue was noted around her mouth. Upper airway conducted sounds additionally heard. Antibiotic coverage as above. 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
[2021-12-17] MEDS: labetalol 5 mg/mL SDV 20mL 10 MG IVP ×5 (06:20→23:00)
[2021-12-17] MEDS: ketorolac 30 mg/mL INJ 15 MG IVP (07:51)
[2021-12-17] MEDS: chlorhexidine gluconate 0.12% Btl 473 mL 15 ML MUCOUS MEM ×2 (09:05→17:56)
[2021-12-17 11:43] LABS: Glucose Point of Care 115 mg/dL (70-110)
--- NOTE | 2021-12-17 13:08 | PM.MISC ---
Miscellaneous Note Note: Patient was examined in front of her daughter Patient is awake and alert able to answer a few my questions, she is not able to recognize her daughter She is extremely dehydrated malnourished Requested speech therapy today She is able to move her right arm without any difficulty however needs some assistance to lift her left arm in the air Able to lift her legs in the air for about 5 seconds She is able to comprehend my questions Forgetful Multiple bruises and petechia for face noted No active hematoma Pupils are equal and reactive Forgetful she is not able to recognize her daughter Malnourished, muscle mass loss She folds her tongue, her tongue does tend to fall backwards Extremely dry mucous membranes Assessment and plan My concern at this point will be related to her deconditioning, vascular dementia, acute worsening, dehydration Requested speech therapy, if she is not able to eat daughter does not want us to try TPN or PEG tube placement, she might opt for comfort care or hospice, she is requesting if comfort care is pursued she should be transferred back to [facility], cyanide case hardener has been updated Continue IV fluids for now, will follow up with speech therapy Blood pressure at the time of my evaluation is around 150s, I would like her to be around 150s to 160s continue normal saline at 50 mill per hour I do not see any signs of aspiration pneumonia, I will discontinue her metronidazole and ceftriaxone
[2021-12-17 17:13] LABS: Glucose Point of Care 102 mg/dL (70-110)
--- NOTE | 2021-12-17 18:21 | PC.NURSE ---
Patient resting in bed, was AAOx2 in the AM but has been oriented to self only rest of shift and lethargic. She is confused and will awake to verbal stimuli. Frequent turns, family at bedside, keeping mouth moist, BP remains elevated even after IV push meds. Does not appear to be in pain, resting quietly, no new events, room clean and clutter free and call light in reach. WIll give bedside report to oncoming nurse at shift change.
[2021-12-17 21:06] LABS: Glucose Point of Care 100 mg/dL (70-110)
[2021-12-18] VITALS (7 sets, daily range): BP systolic 173–195; BP diastolic 82–99; PULSE 77–92; RESP 15–18; TEMP 37.1–37.9; O2SAT 92–98
[2021-12-18] MEDS: labetalol 5 mg/mL SDV 20mL 10 MG IVP ×4 (01:57→19:32)
[2021-12-18 05:29] LABS: Basophils # 0.1 10^3/uL (0.0-0.1); Basophils % 0.6 %; Eosinophils # 0.1 10^3/uL (0.0-0.8); Eosinophils % 1.1 %; Hematocrit 35.4 % (37.0-47.0); Hemoglobin 11.6 g/dL (11.5-15.3); Lymphocytes # 1.5 10^3/uL (0.8-4.8); Lymphocytes % 13.1 %; Mean Corpuscular HGB Conc 32.8 g/dL (30.0-36.0); Mean Corpuscular Hemoglobin 30.4 pg (28.0-34.0); Mean Corpuscular Volume 92.7 fl (81-99); Mean Platelet Volume 11.9 fL (7.4-10.4); Monocytes # 1.1 10^3/uL (0.2-0.9); Monocytes % 9.6 %; Neutrophils # 8.42 10^3/uL (1.8-7.7); Neutrophils % 75.2 %; Nucleated Red Blood Cells % 0 %; Platelet Count 138 10^3/cmm (130-400); Red Blood Count 3.82 10^6/uL (4.1-5.3); Red Cell Distribution Width 13.4 % (12.1-15.1); White Blood Count 11.2 10^3/uL (4.0-10.0)
[2021-12-18 06:43] LABS: Glucose Point of Care 98 mg/dL (70-110)
[2021-12-18] MEDS: dextrose 5%-sod chloride 0.9% 1,000 ML 30 ML IV (09:56)
[2021-12-18 12:16] LABS: Glucose Point of Care 101 mg/dL (70-110)
--- NOTE | 2021-12-18 12:38 | P.DS_ITS ---
Discharge Providers Date of Admission: 12/16/21 22:42 Date of Discharge: December 18, 2021 Attending Provider at Admission: Rupa Kim MD Attending Provider at Discharge: Cyndi Slater MD Primary Care Provider: Jesús Garcia MD Diagnoses at Discharge Discharge Diagnosis (1) Hypertension: Status: Chronic Qualifiers: Hypertension type: essential hypertension Qualified Code(s): I10 - Essential (primary) hypertension (2) Altered mental status: Status: Acute (3) Aspiration into airway: Status: Acute Reason for Visit Reason for Visit: ams/ resp distress Hospital Course Hospital Course 86-year female who presented from [facility] for worsening of her symptoms such as lethargy, fatigue not able to eat, there was concern for aspiration pneumonia initially however chest x-ray did not show such changes, she spiked low-grade fever, she was kept on antibiotics, patient's mentation is waxing and waning, she was not able to recognize her daughter, she was hydrated with IV fluids, daughter does not want any TPN or PEG tube placement, speech therapy saw her and deemed her unstable to start her on any kind of diet, she rolled her tongue backwards and since her stroke her strength and coordination to swallow is extremely poor, she is barely interacting with her family, she is deconditioning on daily basis, as per the family she has not eaten in last 4 to 5 days, I had discussion in length with the family, I did tell them that poor p.o. intake is related to poor prognosis and she might suffer because of her starvation if we are not opting for any options to replenish her deficit of calories. They have decided to pursue hospice care at this point. Jenny Ayon will see her at [facility]. Physical Exam Narrative: Cachectic malnourished female Not able to interact Demented, malnourished, dehydrated Not able to follow commands Upper airway secretions with lung resonance Dehydrated Requiring 1 to 2 L of nasal cannula When awake she was able to shake hand however her left side was extremely weak, cough is weak pupils are reactive to light Discharge Data Studies Completed and Pending Completed Studies During Hospitalization Category Date Time Status CT head wo con* [id number] Stat Cat Scan 12/16/21 19:21 Completed CXRP [XR chest 1V portable [id number]] AM LABS Exams 12/17/21 04:00 Completed XR chest 1V portable [id number] Stat Exams 12/16/21 19:21 Completed Pending at discharge Category Date Time Status Blood Culture Stat Lab 12/17/21 07:35 Results Radiology Impressions Head CT 12/16/21 19:21 IMPRESSION: 1. The study is limited by mild patient motion artifact. 2. No acute intracranial abnormality demonstrated. 3. There is no interval change from the prior examination. Chest X-Ray 12/17/21 04:00 IMPRESSION: No acute findings. Laboratory Results WBC 11.2 10^3/uL (4.0-10.0) H 12/18/21 04:39 RBC 3.82 10^6/uL (4.1-5.3) L 12/18/21 04:39 Hgb 11.6 g/dL (11.5-15.3) 12/18/21 04:39 Hct 35.4 % (37.0-47.0) L 12/18/21 04:39 MCV 92.7 fl (81-99) 12/18/21 04:39 MCH 30.4 pg (28.0-34.0) 12/18/21 04:39 MCHC 32.8 g/dL (30.0-36.0) 12/18/21 04:39 RDW 13.4 % (12.1-15.1) 12/18/21 04:39 Plt Count 138 10^3/cmm (130-400) 12/18/21 04:39 MPV 11.9 fL (7.4-10.4) H 12/18/21 04:39 Neut % (Auto) 75.2 % 12/18/21 04:39 Lymph % (Auto) 13.1 % 12/18/21 04:39 [place] % (Auto) 9.6 % 12/18/21 04:39 Eos % (Auto) 1.1 % 12/18/21 04:39 Baso % (Auto) 0.6 % 12/18/21 04:39 Neut # (Auto) 8.42 10^3/uL (1.8-7.7) H 12/18/21 04:39 Lymph # (Auto) 1.5 10^3/uL (0.8-4.8) 12/18/21 04:39 [place] # (Auto) 1.1 10^3/uL (0.2-0.9) H 12/18/21 04:39 Eos # (Auto) 0.1 10^3/uL (0.0-0.8) 12/18/21 04:39 Baso # (Auto) 0.1 10^3/uL (0.0-0.1) 12/18/21 04:39 Nucleated RBC % (auto) 0 % 12/18/21 04:39 Nucleated RBCs # 0.0 /100WBC 12/18/21 04:39 PT 14.20 SECONDS (12.1-14.9) 12/16/21 19:35 INR 1.07 (0.8-1.2) 12/16/21 19:35 APTT 30.5 SECONDS (23.9-36.7) 12/16/21 19:35 Specimen Type Arterial 12/16/21 19:24 Sample Site Radial, right 12/16/21 19:24 ABG pH 7.39 (7.35-7.45) 12/16/21 19:24 ABG pCO2 43.9 mmHg (35-45) 12/16/21 19:24 ABG pO2 65.6 mmHg (80.0-100.0) L 12/16/21 19:24 ABG HCO3 26.3 mmol/L (22-26) H 12/16/21 19:24 ABG Base Excess 0.8 mmol/L (-2.0-2.0) 12/16/21 19:24 Homero Test N/a 12/16/21 19:24 Hematocrit 42.4 % (37-47) 12/16/21 19:24 O2 Delivery Device None 12/16/21 19:24 Registered Dental Assistant ID Hensa 12/16/21 19:24 Sodium 139 mmol/L (136-145) 12/17/21 05:02 Potassium 3.3 mmol/L (3.5-5.1) L 12/17/21 05:02 Chloride 103 mmol/L (98-107) 12/17/21 05:02 Carbon Dioxide 23 mmol/L (22-29) 12/17/21 05:02 Anion Gap 16.3 (5-19) 12/17/21 05:02 BUN 24 mg/dL (8-23) H 12/17/21 05:02 Creatinine 0.9 mg/dL (0.5-0.9) 12/17/21 05:02 GFR Calculation Not Reportable 12/17/21 05:02 Glucose 132 mg/dL (65-115) H 12/17/21 05:02 POC Glucose 101 mg/dL (70-110) 12/18/21 11:30 Calculated Osmolality 294 mOsm/kg (285-295) 12/17/21 05:02 Calcium 8.6 mg/dL (8.5-10.5) 12/17/21 05:02 Total Bilirubin 0.4 mg/dL (0.15-1.2) 12/17/21 05:02 AST 24 U/L (0-32) 12/17/21 05:02 ALT 11 U/L (0-33) 12/17/21 05:02 Alkaline Phosphatase 97 IU/L (35-105) 12/17/21 05:02 Total Protein 6.4 g/dL (6.6-8.7) L 12/17/21 05:02 Albumin 3.7 g/dL (3.5-5.2) 12/17/21 05:02 Globulin 2.7 g/dL (1.3-4.6) 12/17/21 05:02 TSH 2.14 uIU/mL (0.27-4.20) 12/17/21 05:02 Urine Color Yellow (Yellow) 12/16/21 19:35 Urine Appearance Clear (CLEAR) 12/16/21 19:35 Urine pH 5 (5-7) 12/16/21 19:35 Ur Specific [place] 1.030 (1.005-1.030) 12/16/21 19:35 Urine Protein 1+ (Negative) H 12/16/21 19:35 Urine Glucose (UA) Norm (Normal) 12/16/21 19:35 Urine Ketones Trace (Negative) H 12/16/21 19:35 Urine Blood Neg (Negative) 12/16/21 19:35 Urine Nitrate Negative (Negative) 12/16/21 19:35 Urine Bilirubin 1+ (Negative) H 12/16/21 19:35 Urine Urobilinogen Norm mg/dL (Negative) 12/16/21 19:35 Ur Leukocyte Esterase Negative (Negative) 12/16/21 19:35 Urine RBC 0-4 /hpf (0-2) H 07/01/22 19:35 Urine WBC 0-4 /hpf (0-5) H 12/16/21 19:35 Ur Squamous Epith Cells 5-10 /hpf (0-5) H 12/16/21 19:35 Ur Transition Epith Cell 0-4 /hpf 12/16/21 19:35 Amorphous Sediment Not Reportable 12/16/21 19:35 Urine Bacteria Trace /hpf (NONE) 12/16/21 19:35 Urine Opiates Screen Negative ng/mL (Negative) 12/16/21 19:35 Ur Barbiturates Screen Negative ng/mL (Negative) 12/16/21 19:35 Ur Phencyclidine Scrn Negative ng/mL (Negative) 12/16/21 19:35 Ur Amphetamines Screen Negative ng/mL (Negative) 12/16/21 19:35 U Benzodiazepines Scrn Negative ng/mL (Negative) 12/16/21 19:35 Urine Cocaine Screen Negative ng/mL (Negative) 12/16/21 19:35 U Marijuana (THC) Screen Negative ng/mL (Negative) 12/16/21 19:35 Ethyl Alcohol < 10 mg/dL (0-10) 12/16/21 19:35 Coronavirus 229E (PCR) Not detected (NOT DETECT) 12/16/21 23:45 SARS-CoV-2 (PCR) Not detected (NOT DETECT) 12/16/21 23:45 Vitals Last Vital Signs Temp 100.3 F H 12/18/21 04:00 Pulse 77 12/18/21 11:25 Resp 16 12/18/21 11:25 BP 173/91 12/18/21 11:25 Pulse Ox 96 12/18/21 11:25 Discharge Plan Discharge Patient Disposition: Xfer Other Condition: Serious Prescriptions: Discontinued fluoxetine 20 mg capsule 20 mg PO DAILY@08 0RF cyanocobalamin (vitamin B-12) [Vitamin B-12] 1,000 mcg Tablet 2,000 mcg PO DAILY@08 0RF pantoprazole [Protonix] 40 mg tablet,delayed release (DR/EC) 40 mg PO DAILY@08 0RF prednisone 5 mg tablet 5 mg PO DAILY@08 0RF aspirin [Aspir-81] 81 mg Tablet,Delayed Release (Dr/Ec) 81 mg PO DAILY@08 0RF levothyroxine 100 mcg Tablet 100 mcg PO DAILY@08 0RF ferrous sulfate 325 mg (65 mg iron) Tablet 325 mg PO TID@08,14,20 0RF clonazepam 0.5 mg tablet 0.5 mg PO BID 0RF Mucinex 1,200 mg tablet extended release 12hr 1,200 mg PO BID 0RF hydrocodone-acetaminophen 5-325 mg tablet 1 tab PO Q6H PRN (Reason: pain) Qty: 20 0RF Multi-Vitamins Tablet 1 tab PO DAILY 0RF Discharge Orders: Discharge Order (Routine); Ordered 12/18/21 Ordered By: Cyndi Slater Discharge Diet: As Directed Discharge Activity: Bedrest Discharge Attestations Time Spent in Discharge Care*: less than 30 min Status at Discharge: Cognitive status at discharge: cognitively intact , Behavioral status at discharge: cooperative , Quality Metrics Clinical Quality Measures [ No reported AMI, CVA or VTE this stay] Coding Level of Care Code Acute [facility] note Diagnoses Hypertension I10 Hypertension type: essential hypertension Altered mental status R41.82 Aspiration into airway T17.908A
[2021-12-18] MEDS: ketorolac 30 mg/mL INJ 15 MG IVP (19:32)
--- NOTE | 2021-12-19 13:37 | W.ED.WEAKNES ---
HPI - Weakness General: Chief complaint: Weakness Stated complaint: ams/ resp distress Time Seen by Provider: 12/16/21 19:21 Source: patient, family and EMS History of Present Illness: 86 year old female presenting from a nursing facility. Evidently, at dinner, she wasn't answering her appropriately. She may or may not have turned blue. she had a right sided lean at that point. She presents answering some questions. She appears to be short of breath. She has a blue substance in her mouth and around her lips. She denies significant pain. She appears to be more alert then on EMS presentation. MD Complaint: generalized weakness Onset (ago): hour(s) (2.5) Duration: constant and improved Location: generalized Migration: none Severity: moderate Quality: other Relieving factors: other Exacerbating factors: other Context: trauma/injury Associated symptoms: Reports confusion and short of breath; Denies chest pain, fever(s) or headache(s) Review of Systems General: Reports: ROS unobtainable due to medical condition Const: Denies: fever(s) Card: Denies: chest pain Neuro: Reports: confusion; Denies: headache(s) [facility] PFSH: Medical History Anemia COVID-06 march 2020 Facial hematoma Hypertension Hypothyroidism (acquired) Lower gastrointestinal hemorrhage Syncope Surgical History H/O mastectomy Family History Father CAD (coronary artery disease) Social History Smoking and tobacco status: never smoked Alcohol intake: never Physical Exam Const: EXAM LIMITATIONS: altered mental status GENERAL APPEARANCE: lethargic ORIENTATION/CONSCIOUSNESS: Yes lethargic HENMT: COMMON NORMALS: normocephalic and Normal external nose present HEAD & SCALP: normocephalic and raccoon eyes FACE & SINUS: face symmetric, ecchymosis and laceration (sutures intact); no edema NOSE: Normal external nose present MOUTH: Abnormal oral and palatal mucosa present (parched) Eye: COMMON NORMALS: Equal, round and reactive pupils present and EOMs intact bilaterally PUPIL: Yes Equal, round and reactive pupils present Neck/C-Spine: GENERAL: Yes trachea midline Chest: CHEST: Yes Symmetrical chest wall rise Resp: EFFORT & INSPECTION: Yes symmetric chest movement, Yes tachypneic and Yes uses accessory muscles AUSCULTATION: rhonchi and other (mild stridor) Cardio: COMMON NORMALS: regular rate and regular rhythm RATE: regular rate RHYTHM: regular rhythm GI: COMMON NORMALS: Normal to inspection, nondistended, normoactive bowel sounds present and Soft to palpation PALPATION: Yes Soft to palpation Extremity: COMMON NORMALS: no pedal edema Neuro: RELL COMA SCALE: document GCS findings [place] coma scale eye opening: To sound [place] coma scale verbal response: Confused Rell coma scale motor response: Obey commands Rell coma scale total score: 13 SENSORIUM/ORIENTATION: Yes lethargic CRANIAL NERVES: Yes CN normal except as noted SPEECH: abnormal speech Details: slurred GAIT: Yes Unable to assess gait SENSORY EXAM: Yes extremities (intact) MOTOR EXAM: Pronator motor function not present Course Vital Signs: Vital signs: Vital Signs Temperature 100.3 F H 12/18/21 04:00 Pulse Rate 92 12/18/21 19:25 Respiratory Rate 18 12/18/21 19:25 Blood Pressure 195/99 12/18/21 19:25 Pulse Oximetry 96 12/18/21 19:25 MDM - Weakness Medical Decision Making On exam, this lady has no focal neuro deficits. She moves upper and lower extremities equally. She has no facial droop. She is more alert now than prior. I expect she may have aspirated, and had an episode of hypoxia in the facility, as she's now requiring some oxygen. Other than mild hypoxia, her blood gas looks appropriate. Her laboratory is essentially benign. Her head CT remains negative following trauma yesterday. Because of her oxygen dependence, and continued mental status change, as well as significant hypertension requiring intervention in the ER, she'll be observed. Lab Data : 12/18/21 04:39 12/17/21 05:[address] 12/16/21 19:21 IMPRESSION: 1. The study is limited by mild patient motion artifact. 2. No acute intracranial abnormality demonstrated. 3. There is no interval change from the prior examination. Chest X-Ray 12/17/21 04:00 IMPRESSION: No acute findings. Laboratory Results WBC 12.9 10^3/uL (4.0-10.0) H 12/16/21 19:35 RBC 4.44 10^6/uL (4.1-5.3) 12/16/21 19:35 Hgb 13.7 g/dL (11.5-15.3) 12/16/21 19:35 Hct 40.7 % (37.0-47.0) 12/16/21 19:35 MCV 91.7 fl (81-99) 12/16/21 19:35 MCH 30.9 pg (28.0-34.0) 12/16/21 19:35 MCHC 33.7 g/dL (30.0-36.0) 12/16/21 19:35 RDW 13.5 % (12.1-15.1) 12/16/21 19:35 Plt Count 181 10^3/cmm (130-400) 12/16/21 19:35 MPV 11.4 fL (7.4-10.4) H 12/16/21 19:35 Neut % (Auto) 71.6 % 12/16/21 19:35 Lymph % (Auto) 16.8 % 12/16/21 19:35 [place] % (Auto) 10.2 % 12/16/21 19:35 Eos % (Auto) 0.5 % 12/16/21 19:35 Baso % (Auto) 0.5 % 12/16/21 19:35 Neut # (Auto) 9.22 10^3/uL (1.8-7.7) H 12/16/21 19:35 Lymph # (Auto) 2.2 10^3/uL (0.8-4.8) 12/16/21 19:35 Barton # (Auto) 1.3 10^3/uL (0.2-0.9) H 12/16/21 19:35 Eos # (Auto) 0.1 10^3/uL (0.0-0.8) 12/16/21 19:35 Baso # (Auto) 0.1 10^3/uL (0.0-0.1) 12/16/21 19:35 Nucleated RBC % (auto) 0 % 12/16/21 19:35 Nucleated RBCs # 0.0 /100WBC 12/16/21 19:35 PT 14.20 SECONDS (12.1-14.9) 12/16/21 19:35 INR 1.07 (0.8-1.2) 12/16/21 19:35 APTT 30.5 SECONDS (23.9-36.7) 12/16/21 19:35 Specimen Type Arterial 12/16/21 19:24 Sample Site Radial, right 12/16/21 19:24 ABG pH 7.39 (7.35-7.45) 12/16/21 19:24 ABG pCO2 43.9 mmHg (35-45) 12/16/21 19:24 ABG pO2 65.6 mmHg (80.0-100.0) L 12/16/21 19:24 ABG HCO3 26.3 mmol/L (22-26) H 12/16/21 19:24 ABG Base Excess 0.8 mmol/L (-2.0-2.0) 12/16/21 19:24 Homero Test N/a 12/16/21 19:24 Hematocrit 42.4 % (37-47) 12/16/21 19:24 O2 Delivery Device None 12/16/21 19:24 Hydrochloric Area Supervisor ID Hensa 12/16/21 19:24 Sodium 135 mmol/L (136-145) L 12/16/21 19:35 Potassium 3.5 mmol/L (3.5-5.1) 12/16/21 19:35 Chloride 98 mmol/L (98-107) 12/16/21 19:35 Carbon Dioxide 24 mmol/L (22-29) 12/16/21 19:35 Anion Gap 16.5 (5-19) 12/16/21 19:35 BUN 24 mg/dL (8-23) H 12/16/21 19:35 Creatinine 0.9 mg/dL (0.5-0.9) 12/16/21 19:35 GFR Calculation Not Reportable 12/16/21 19:35 Glucose 108 mg/dL (65-115) 12/16/21 19:35 Calculated Osmolality 285 mOsm/kg (285-295) 12/16/21 19:35 Calcium 9.2 mg/dL (8.5-10.5) 12/16/21 19:35 Total Bilirubin 0.4 mg/dL (0.15-1.2) 12/16/21 19:35 AST 28 U/L (0-32) 12/16/21 19:35 ALT 13 U/L (0-33) 12/16/21 19:35 Alkaline Phosphatase 105 IU/L (35-105) 12/16/21 19:35 Total Protein 6.7 g/dL (6.6-8.7) 12/16/21 19:35 Albumin 4.1 g/dL (3.5-5.2) 12/16/21 19:35 Globulin 2.6 g/dL (1.3-4.6) 12/16/21 19:35 Urine Color Yellow (Yellow) 12/16/21 19:35 Urine Appearance Clear (CLEAR) 12/16/21 19:35 Urine pH 5 (5-7) 12/16/21 19:35 Ur Specific [place] 1.030 (1.005-1.030) 12/16/21 19:35 Urine Protein 1+ (Negative) H 12/16/21 19:35 Urine Glucose (UA) Norm (Normal) 12/16/21 19:35 Urine Ketones Trace (Negative) H 12/16/21 19:35 Urine Blood Neg (Negative) 12/16/21 19:35 Urine Nitrate Negative (Negative) 12/16/21 19:35 Urine Bilirubin 1+ (Negative) H 12/16/21 19:35 Urine Urobilinogen Norm mg/dL (Negative) 12/16/21 19:35 Ur Leukocyte Esterase Negative (Negative) 12/16/21 19:35 Urine RBC 0-4 /hpf (0-2) H 12/16/21 19:35 Urine WBC 0-4 /hpf (0-5) H 12/16/21 19:35 Ur Squamous Epith Cells 5-10 /hpf (0-5) H 12/16/21 19:35 Ur Transition Epith Cell 0-4 /hpf 12/16/21 19:35 Amorphous Sediment Not Reportable 12/16/21 19:35 Urine Bacteria Trace /hpf (NONE) 12/16/21 19:35 Urine Opiates Screen Negative ng/mL (Negative) 12/16/21 19:35 Ur Barbiturates Screen Negative ng/mL (Negative) 12/16/21 19:35 Ur Phencyclidine Scrn Negative ng/mL (Negative) 12/16/21 19:35 Ur Amphetamines Screen Negative ng/mL (Negative) 12/16/21 19:35 U Benzodiazepines Scrn Negative ng/mL (Negative) 12/16/21 19:35 Urine Cocaine Screen Negative ng/mL (Negative) 12/16/21 19:35 U Marijuana (THC) Screen Negative ng/mL (Negative) 12/16/21 19:35 Ethyl Alcohol < 10 mg/dL (0-10) 12/16/21 19:35 Discharge Plan Discharge Patient Disposition: Admitted As Inpatient Admit Provider: Rupa Kim Clinical Impression: Hypertension, Dementia, Altered mental status, Aspiration into airway Condition: Serious Discharge Diet: As Directed Discharge Activity: Bedrest Coding Level of Care Code ED Supervisor [employer] for [facility]uda
== END 2021-12-18 20:05 | disposition hospice, home (50) | DRG 206 ==
LOC: ER 22:14 → MEDSURG 12-17 00:35
PROVIDERS: Admitting Provider Student in an Organized Health Care Education/Training Program; Emergency Provider Emergency Medicine; PCP Family Medicine; Visit Provider Internal Medicine
DX: T17.908A Unspecified foreign body in respiratory tract, part unspecified causing other injury, initial encounter (principal); E46 Unspecified protein-calorie malnutrition; Z68.1 Body mass index [BMI] 19.9 or less, adult; R64 Cachexia; E86.0 Dehydration; I10 Essential (primary) hypertension; R41.82 Altered mental status, unspecified; Z91.81 History of falling; Z79.82 Long term (current) use of aspirin; Z51.5 Encounter for palliative care; X58.XXXA Exposure to other specified factors, initial encounter
CPT/HCPCS: 36415; 36416; 36600; 70450; 70486; 71045; 72125; 80053; 80306; 80307; 81001; 82803; 82962; 84443; 85025; 85610; 85730; 87040; 87635; 92523; 92610; 93005; 96374; 96375; 96376; 99283; 99285; J0360; J0696; J1885; J2310; J3490; J7030; S0030